=== PATIENT | male | born 1935 | race Caucasian/White ===

== ENCOUNTER 2016-12-07 08:08 | Emergency (ER) | payer MEDICAID ==
[~2016-12-07 08:08] MED LIST: Aspirin 81 MG Tab.Chew PO ONE
[2016-12-07] MEDS ORDERED: Sodium Chloride 0.9% 10 ML Syringe FLUSH PRN (08:20)
[2016-12-07] MEDS ORDERED: Aspirin 81 MG Tab.Chew PO ONE (08:21)
[2016-12-07] MEDS ORDERED: Sodium Chloride 0.9% 1,000 ML IV SCH (08:30)
[2016-12-07] MEDS ORDERED: Nitroglycerin 2% Oint 1 GM UD Packet TOP ONE (08:33)
--- NOTE | 2016-12-07 08:33 | EDM.PDOC ---
ED HPI GENERAL MEDICAL PROBLEM - General Chief Complaint: Chest Pain Stated Complaint: CHEST PAIN Time Seen by Provider: 12/07/16 08:08 Source of Information: Reports: Patient, Family History Limitations: Reports: No Limitations - History of Present Illness INITIAL COMMENTS - FREE TEXT/NARRATIVE: 81 y/.o.w.m without a prev history of cad, came to the ed with his due to SSCP at rest, radiating to his left shoulder, which started yesterday and got really bad last night. Pt took a 81 mg ASA last night. pt rated his CP as a 4/ 10. No N/V/D no diaphoresis, sob or any other acute medical issue at this time. 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 Chest Pain Score (Numeric/FACES): 4 - Related Data Allergies Allergy/AdvReac Type Severity Reaction Status Date / Time indomethacin [From Indocin] Allergy Nausea Verified 12/07/16 08:22 Home Meds: Home Meds Allopurinol [Zyloprim] 100 mg PO DAILY 12/07/16 [History] Glimepiride [Glimepiride] 2 mg PO DAILY 12/07/16 [History] Hydrochlorothiazide 25 mg PO DAILY 12/07/16 [History] Lisinopril 20 mg PO BID 12/07/16 [History] Simvastatin [Zocor] 40 mg PO BEDTIME 12/07/16 [History] ED ROS GENERAL - Review of Systems Review Of Systems: See Below Constitutional: Reports: No Symptoms HEENT: Reports: No Symptoms Respiratory: Reports: No Symptoms Cardiovascular: Reports: Chest Pain Endocrine: Reports: No Symptoms GI/Abdominal: Reports: No Symptoms : Reports: No Symptoms Musculoskeletal: Reports: No Symptoms Skin: Reports: No Symptoms Neurological: Reports: No Symptoms Psychiatric: Reports: No Symptoms Hematologic/Lymphatic: Reports: No Symptoms Immunologic: Reports: No Symptoms ED EXAM, GENERAL - Physical Exam Exam: See Below Exam Limited By: No Limitations General Appearance: Alert, WD/WN, Mild Distress Eye Exam: Bilateral Eye: Normal Inspection Ears: Normal External Exam Ear Exam: Bilateral Ear: Auricle Normal Nose: Normal Inspection, Normal Mucosa, No Blood Throat/Mouth: Normal Inspection, Normal Lips Head: Atraumatic, Normocephalic Neck: Normal Inspection, Supple, Non-Tender Respiratory/Chest: No Respiratory Distress, Lungs Clear, Normal Breath Sounds Cardiovascular: Normal Peripheral Pulses, Regular Rate, Rhythm, No Edema, No JVD Peripheral Pulses: 1+: Femoral (L), Femoral (R) GI/Abdominal: Normal Bowel Sounds, Soft, Non-Tender (Male) Exam: No Hernia Rectal (Males) Exam: Deferred Back Exam: Normal Inspection, Full Range of Motion Extremities: Normal Inspection Neurological: Alert, Oriented, CN II-XII Intact, Normal Cognition, Normal Gait Psychiatric: Normal Affect, Normal Mood Skin Exam: Warm, Dry, Intact, Normal Color, No Rash Lymphatic: No Adenopathy EKG INTERPRETATION EKG Date: 12/07/16 Time: 08:10 Rhythm: NSR Rate (Beats/Min): 79 [place]: LAD-Left [place] Deviation P-Wave: Present QRS: Normal ST-T: Normal QT: Normal Comparison: NA - No Prior EKG Course - Vital Signs Text/Narrative:: 81 y/.o.w.m without a prev history of cad, came to the ed with his due to SSCP at rest, radiating to his left shoulder, which started yesterday and got really bad last night. Pt took a 81 mg ASA last night. pt rated his CP as a 4/ 10. No N/V/D no diaphoresis, sob or any other acute medical issue at this time. PE: WDWN WM in no acute discomfort, c/o SSCP 4/10 Pt has H/O CRI and HTN, take lisinopril and HCTZ, H/O NIDDM. Lexitest was neg on 12/28/2016 Imaging: CXR: NAD Labs: Cr. 1.7 K 3.3 Na 128 Glc 285 GFR 39, HGB 11.6 Cl 94 WBC 5.6 D Dimer 1470 Troponin 0.01 ECG: HR 88, no acute ST/T wave changes, please see report above. Impression: CP, elevated D Dimer, CRI, HTN, Hyponatremia, hypokalemia, Tx: ASA, potassium, NTG paste, clonidine, Reexam:pain free after ASA, NTG and clonidin, BP was 123/87 on transfer Consultation: Dr. Treadwell, Hospitalist, [facility]: Accepted the pt for transfere/admission Plan: Transfer to [facility] for a VQ/CTA test to r/o a PE; Last Recorded V/S: Last Vital Signs Temp 36.9 C 12/07/16 08:54 Pulse 58 L 12/07/16 08:54 Resp 17 12/07/16 08:54 BP 148/75 H 12/07/16 09:34 Pulse Ox 98 12/07/16 08:54 - Orders/Labs/Meds Orders: Active Orders 24 hr Category Date Time Status Chest 1V Frontal [CR] Stat Exams 12/07/16 08:22 Taken Sodium Chloride 0.9% [Normal Saline] 1,000 ml Med 12/07/16 08:30 Active IV ASDIRECTED Sodium Chloride 0.9% [Saline Flush] Med 12/07/16 08:20 Active 10 ml FLUSH ASDIRECTED PRN Saline Lock Insert [OM.PC] Routine Oth 12/07/16 08:20 Ordered EKG 12 Lead [EK] Routine Ther 12/07/16 08:20 Ordered Medication Orders Sodium Chloride (Normal Saline) 1,000 mls @ 125 mls/hr IV ASDIRECTED SUDHIR Last Admin: 12/07/16 08:33 Dose: 125 mls/hr Sodium Chloride (Saline Flush) 10 ml FLUSH ASDIRECTED PRN PRN Reason: Keep Vein Open Last Admin: 12/07/16 08:24 Dose: 10 ml Labs: Laboratory Tests 12/07/16 12/07/16 12/07/16 Range/Units 08:15 08:15 08:15 WBC 5.6 (4.5-12.0) X10-3/uL RBC 3.49 L (4.30-5.75) x10(6)uL Hgb 11.9 (11.5-15.5) g/dL Hct 35.2 (30.0-51.3) % MCV 101.1 H (80-96) fL MCH 34.1 H (27.7-33.6) pg MCHC 33.8 (32.2-35.4) g/dL RDW 12.4 (11.5-15.5) % Plt Count 173 (125-369) X10(3)uL MPV 7.9 (7.4-10.4) fL Neut % (Auto) 71.5 (46-82) % Lymph % (Auto) 16.3 (13-37) % [place] % (Auto) 10.3 (4-12) % Eos % (Auto) 1 (1.0-5.0) % Baso % (Auto) 1 (0-2) % Neut # (Auto) 4.0 (1.6-8.3) # Lymph # (Auto) 0.9 (0.6-5.0) # [place] # (Auto) 0.6 (0.0-1.3) # Eos # (Auto) 0.1 (0.0-0.8) # Baso # (Auto) 0.0 (0.0-0.2) # PT 10.8 (8.7-11.1) INR 1.07 (0.89-1.13) D-Dimer, Quantitative (100-400) ng/mL Sodium 128 L (135-145) mmol/L Potassium 3.3 L (3.5-5.3) mmol/L Chloride 94 L (100-110) mmol/L Carbon Dioxide 26 (23-29) mmol/L BUN 23 (8-23) mg/dL Creatinine 1.7 H (0.6-1.3) mg/dL Est Cr Clr Drug Dosing 32.92 mL/min Estimated GFR (MDRD) 39 L (>60) BUN/Creatinine Ratio 13.5 (9-20) Glucose 282 H (80-116) mg/dL Calcium 9.4 (8.6-10.2) mg/dL Troponin I (0.02-0.06) NG/ML B-Natriuretic Peptide (0-100) pg/mL 12/07/16 12/07/16 12/07/16 Range/Units 08:15 08:15 08:15 WBC (4.5-12.0) X10-3/uL RBC (4.30-5.75) x10(6)uL Hgb (11.5-15.5) g/dL Hct (30.0-51.3) % MCV (80-96) fL MCH (27.7-33.6) pg MCHC (32.2-35.4) g/dL RDW (11.5-15.5) % Plt Count (125-369) X10(3)uL MPV (7.4-10.4) fL Neut % (Auto) (46-82) % Lymph % (Auto) (13-37) % [place] % (Auto) (4-12) % Eos % (Auto) (1.0-5.0) % Baso % (Auto) (0-2) % Neut # (Auto) (1.6-8.3) # Lymph # (Auto) (0.6-5.0) # [place] # (Auto) (0.0-1.3) # Eos # (Auto) (0.0-0.8) # Baso # (Auto) (0.0-0.2) # PT (8.7-11.1) INR (0.89-1.13) D-Dimer, Quantitative 1470 H (100-400) ng/mL Sodium (135-145) mmol/L Potassium (3.5-5.3) mmol/L Chloride (100-110) mmol/L Carbon Dioxide (23-29) mmol/L BUN (8-23) mg/dL Creatinine (0.6-1.3) mg/dL Est Cr Clr Drug Dosing mL/min Estimated GFR (MDRD) (>60) BUN/Creatinine Ratio (9-20) Glucose (80-116) mg/dL Calcium (8.6-10.2) mg/dL Troponin I < 0.01 L (0.02-0.06) NG/ML B-Natriuretic Peptide 123 H (0-100) pg/mL Meds: Medications Generic Name Dose Route Start Last Admin Trade Name Freq PRN Reason Stop Dose Admin Sodium Chloride 1,000 mls @ 125 mls/hr 12/07/16 08:30 12/07/16 08:33 Normal Saline IV 125 mls/hr ASDIRECTED SUDHIR Administration Sodium Chloride 10 ml 12/07/16 08:20 12/07/16 08:24 Saline Flush FLUSH 10 ml ASDIRECTED PRN Administration Keep Vein Open Discontinued Medications Generic Name Dose Route Start Last Admin Trade Name Freq PRN Reason Stop Dose Admin Aspirin 324 mg 12/07/16 08:05 12/07/16 08:10 Aspirin PO 12/07/16 08:06 324 mg ONETIME ONE Administration Clonidine HCl 0.1 mg 12/07/16 09:24 12/07/16 09:34 Catapres PO 12/07/16 09:25 0.1 mg ONETIME ONE Administration Nitroglycerin 1 gm 12/07/16 08:33 12/07/16 08:39 Nitro-Bid 2% TOP 12/07/16 08:34 1 gm ONETIME ONE Administration Potassium Chloride 40 meq 12/07/16 08:47 12/07/16 08:57 Klor-Con M20 PO 12/07/16 08:48 40 meq ONETIME ONE Administration Departure - Departure Time of Disposition: 10:14 Disposition: DC/Tfer to [facility] Reason for Transfer *Q: Other (no VQ scan at [facility]) Condition: Fair Clinical Impression: Chest pain, Elevated d-dimer, Renal insufficiency, Diabetes 1.5, managed as type 2 Referrals: Luli Lester PA [Primary Care Provider] - Forms: ED Department Discharge - My Orders Last 24 Hours: My Active Orders 12/07/16 08:20 Sodium Chloride 0.9% [Saline Flush] 10 ml FLUSH ASDIRECTED PRN Saline Lock Insert [OM.PC] Routine EKG 12 Lead [EK] Routine 12/07/16 08:22 Chest 1V Frontal [CR] Stat 12/07/16 08:30 Sodium Chloride 0.9% [Normal Saline] 1,000 ml IV ASDIRECTED - Assessment/Plan Last 24 Hours: My Active Orders 12/07/16 08:20 Sodium Chloride 0.9% [Saline Flush] 10 ml FLUSH ASDIRECTED PRN Saline Lock Insert [OM.PC] Routine EKG 12 Lead [EK] Routine 12/07/16 08:22 Chest 1V Frontal [CR] Stat 12/07/16 08:30 Sodium Chloride 0.9% [Normal Saline] 1,000 ml IV ASDIRECTED
[2016-12-07] MEDS ORDERED: Potassium Chloride 20 MEQ Tab.ER PO ONE (08:47)
[2016-12-07] MEDS ORDERED: cloNIDine 0.1 MG Tab PO ONE (09:24)
[2016-12-07 09:34] VITALS: BP 148/75
--- NOTE | 2016-12-09 12:08 | CR ---
INDICATION: Chest pain. CHEST: An AP upright view of the chest was obtained portable 12/07/2016 and revealed the heart to be normal in size and shape. The aorta is tortuous with calcification in the arch. Overlying EKG leads are noted. An active infiltrate or effusion was not seen. IMPRESSION: No acute process. MTDD
== END 2016-12-07 11:13 | disposition critical access hospital (66) ==
LOC: FB.ED 08:08
DX: R07.2 Precordial pain (principal); R79.1 Abnormal coagulation profile; I12.9 Hypertensive chronic kidney disease with stage 1 through stage 4 chronic kidney disease, or unspecified chronic kidney disease; E11.22 Type 2 diabetes mellitus with diabetic chronic kidney disease; N18.9 Chronic kidney disease, unspecified; E87.1 Hypo-osmolality and hyponatremia; E87.6 Hypokalemia
CPT/HCPCS: 36415; 71010; 80048; 83880; 84484; 85025; 85379; 85610; 93005; 96360; 96361; 99285; A9270; J7040; J7050

== ENCOUNTER 2017-03-09 10:43 | Emergency (ER) | payer MEDICAID, MEDICARE ==
[2017-03-09] MEDS ORDERED: Ondansetron 8 MG Tab.DIS PO ONE (11:13)
[2017-03-09] MEDS ORDERED: Alum Hydroxide/Mag Hydroxide 15 ML, Lidocaine 2% 15 ML PO STA ×2 (11:13)
--- NOTE | 2017-03-09 11:15 | EDM.PDOC ---
ED HPI GENERAL MEDICAL PROBLEM - General Stated Complaint: STOMACH, HIGH BP Time Seen by Provider: 03/09/17 10:43 Source of Information: Reports: Patient, Family History Limitations: Reports: No Limitations - History of Present Illness INITIAL COMMENTS - FREE TEXT/NARRATIVE: 81 y.o.w.m came to the ed because of pein at his mid upper abdomen. Pt was seen by his PMD last week for same when protonix was prescribed. Pt stated the meds did not help. He was seen initially at the clinic and sent to the ED and sent to the ed because his BP was elevated. No N/V/D or dizziness. His SBP was 165. 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 Denies spice food, ETOH or drugs. No other acute medical issues. Onset: Unknown/Unsure Onset Date: 03/08/17 Onset Time: 08:00 Duration: Week(s):, Intermittent Location: Reports: Abdomen Quality: Reports: Burning, Dull Severity: Mild Improves with: Reports: Eating Worsens with: Reports: Other (not eating) Context: Reports: Other (h/o of gastritis) Associated Symptoms: Reports: No Other Symptoms Treatments POLYMERIZATION ENGINEER: Reports: Other (see below) (protonix) Middle Abdomen Pain Score (Numeric/FACES): 5 - Related Data Allergies Allergy/AdvReac Type Severity Reaction Status Date / Time indomethacin [From Indocin] Allergy Nausea Verified 03/09/17 11:04 Home Meds: Home Meds Allopurinol [Zyloprim] 100 mg PO DAILY 12/07/16 [History] Glimepiride [Glimepiride] 2 mg PO DAILY 12/07/16 [History] Lisinopril 20 mg PO BID 12/07/16 [History] Simvastatin [Zocor] 40 mg PO BEDTIME 12/07/16 [History] Metoprolol Tartrate 12.5 mg PO BID 03/09/17 [History] Pantoprazole Sodium [Protonix] 40 mg PO DAILY 03/09/17 [History] Past Medical History HEENT History: Reports: Cataract, Epistaxis, Impaired Vision Cardiovascular History: Reports: Afib, Hypertension Genitourinary History: Reports: Other (See Below) Other Genitourinary History: 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 Musculoskeletal History: Reports: Arthritis Endocrine/Metabolic History: Reports: Diabetes, Type II Oncologic (Cancer) History: Reports: Lymphoma - Infectious Disease History Infectious Disease History: Reports: Chicken Pox, Measles, Mumps - Past Surgical History HEENT Surgical History: Reports: Cataract Surgery GI Surgical History: Reports: Colonoscopy, Hernia, Abdominal Social & Family History - Tobacco Use Smoking Status *Q: Never Smoker - Caffeine Use Caffeine Use: Reports: Tea - Recreational Drug Use Recreational Drug Use: No ED ROS GENERAL - Review of Systems Review Of Systems: See Below Constitutional: Reports: No Symptoms HEENT: Reports: No Symptoms Respiratory: Reports: No Symptoms Cardiovascular: Reports: No Symptoms Endocrine: Reports: No Symptoms GI/Abdominal: Reports: Abdominal Pain (epigastric) : Reports: No Symptoms Musculoskeletal: Reports: No Symptoms Skin: Reports: No Symptoms Neurological: Reports: No Symptoms Psychiatric: Reports: No Symptoms Hematologic/Lymphatic: Reports: No Symptoms Immunologic: Reports: No Symptoms ED EXAM, GI/ABD - Physical Exam Exam: See Below Exam Limited By: No Limitations General Appearance: Alert, WD/WN, Mild Distress Eyes: Bilateral: Normal Appearance Ears: Normal External Exam Nose: Normal Inspection Throat/Mouth: Normal Inspection, Normal Lips Head: Atraumatic, Normocephalic Neck: Normal Inspection, Supple, Non-Tender, Full Range of Motion Respiratory/Chest: No Respiratory Distress, Lungs Clear, Normal Breath Sounds Cardiovascular: Normal Peripheral Pulses, Regular Rate, Rhythm, No Edema GI/Abdominal Exam: Normal Bowel Sounds, No Organomegaly, Tender (epigastric) (Male) Exam: Deferred Rectal (Males) Exam: Deferred Back Exam: Normal Inspection, Full Range of Motion Extremities: Normal Inspection, Normal Range of Motion, Non-Tender, No Pedal Edema Neurological: Alert, Oriented, CN II-XII Intact, Normal Cognition, Normal Gait, No Motor/Sensory Deficits Psychiatric: Normal Affect, Normal Mood Skin Exam: Warm, Dry, Intact, Normal Color, No Rash Lymphatic: No Adenopathy Course - Vital Signs Text/Narrative:: 81 y.o.w.m came to the ed because of pein at his mid upper abdomen. Pt was seen by his PMD last week for same when protonix was prescribed. Pt stated the meds did not help. He was seen initially at the clinic and sent to the ED and sent to the ed because his BP was elevated. No N/V/D or dizziness. His SBP was 165. 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 Denies spice food, ETOH or drugs. No other acute medical issues. PE: WNWD WM c/o mid upper abd. pain BP 165/98 Impression: HTN, gastritis/duodenitis Tx: Zofran, GI cocktail, Clonidin Reexam: imprpved. abd. pain subsided 100% His BP was 135/85 on D/C to home with his SO Plan: D/C with instructions Last Recorded V/S: Last Vital Signs Temp 36.7 C 03/09/17 11:05 Pulse 65 03/09/17 11:05 Resp 18 03/09/17 13:36 BP 138/74 03/09/17 14:48 Pulse Ox 99 03/09/17 11:05 - Orders/Labs/Meds Labs: Laboratory Tests 03/09/17 Range/Units 11:50 Urine Color Yellow (YELLOW) Urine Appearance Clear (CLEAR) Urine pH 6.5 (5.0-6.5) Ur Specific [place] 1.010 (1.010-1.025) Urine Protein 30 H (NEGATIVE) mg/dL Urine Glucose (UA) 250 H (NEGATIVE) mg/dL Urine Ketones Negative (NEGATIVE) mg/dL Urine Occult Blood Negative (NEGATIVE) Urine Nitrite Negative (NEGATIVE) Urine Bilirubin Negative (NEGATIVE) Urine Urobilinogen Normal (NEGATIVE) mg/dL Ur Leukocyte Esterase Negative (NEGATIVE) Urine RBC 0-5 (0) Urine WBC 0-5 (0) Ur Squamous Epith Cells Rare (NS,R,O) Urine Bacteria Rare H (NS) Meds: Medications Discontinued Medications Generic Name Dose Route Start Last Admin Trade Name Freq PRN Reason Stop Dose Admin Clonidine HCl 0.1 mg 03/09/17 13:37 03/09/17 13:41 Catapres PO 03/09/17 13:38 0.1 mg ONETIME ONE Administration Al Hydroxide/Mg Hydroxide 15 0 ml 03/09/17 11:13 03/09/17 11:56 ml/ Lidocaine HCl 15 ml PO 03/09/17 11:14 30 ml ONETIME STA Administration Ondansetron HCl 8 mg 03/09/17 11:13 03/09/17 11:56 Zofran Odt PO 03/09/17 11:14 8 mg ONETIME ONE Administration Departure - Departure Time of Disposition: 14:58 Disposition: Home, Self-Care 01 Condition: Good Clinical Impression: Gastritis, Hypertension - Discharge Information Referrals: Luli Lester PA [Primary Care Provider] - Forms: ED Department Discharge Additional Instructions: Please take your Protonix every morning and 30ml of Maalox every evening, 3 hours after your last meal of the day. Take Maalox every evening for the next 5 days. Please f/u with your PCP/GI specialist, come back if your symptoms get worse acutely. Check your blood pressure every day at the same time, record blood pressures and if top number greater than 140, please see your doctor SANDRINE or be seen at walk-in clinic.
[2017-03-09] MEDS ORDERED: cloNIDine 0.1 MG Tab PO ONE (13:37)
[2017-03-09 15:25] VITALS: BP 138/74
== END 2017-03-09 15:11 | disposition home or self-care (01) ==
LOC: FB.ED 10:43
DX: K29.70 Gastritis, unspecified, without bleeding (principal); K29.80 Duodenitis without bleeding; I10 Essential (primary) hypertension; E11.9 Type 2 diabetes mellitus without complications; N27.0 Small kidney, unilateral; Z79.84 Long term (current) use of oral hypoglycemic drugs; Z79.899 Other long term (current) drug therapy; Z88.8 Allergy status to other drugs, medicaments and biological substances
CPT/HCPCS: 81001; 99283; A9270

== ENCOUNTER 2017-03-24 06:48 | Day surgery (SDC) | payer MEDICARE ==
[2017-03-24] MEDS ORDERED: Sodium Chloride 0.9% 10 ML Syringe FLUSH PRN (07:00)
[2017-03-24] MEDS ORDERED: Lactated Ringers 1,000 ML IV SCH (07:00)
[2017-03-24] MEDS ORDERED: Propofol 200 MG/20 ML SDV IV ONE (08:00)
[2017-03-24] MEDS ORDERED: Lidocaine 2% 100 MG/5 ML Syringe IVPUSH ONE (08:00)
[2017-03-24] MEDS ORDERED: Midazolam 1 MG/ML 2 ML SDV IV ONE (08:00)
[2017-03-24] MEDS ORDERED: Labetalol 100 MG/20 ML MDV IV ONE (08:00)
--- NOTE | 2017-03-24 08:17 | PCM.OPNOTE ---
- General Post-Op/Procedure Note Date of Surgery/Procedure: 03/24/17 Operative Procedure(s): egd with bx Findings: gastritis fundic gland polyps esophagitis Pre Op Diagnosis: epigastric pain Post-Op Diagnosis: gastritis. fundic gland polyps. esophagitis Anesthesia Technique: MAC Primary Surgeon: Lobo Borja Anesthesia Provider: Elli Siddiqui Pathology: stomach and distal esophagus Complications: None Condition: Good Free Text/Narrative:: see dictation
[2017-03-24 09:26] VITALS: BP 174/84
--- NOTE | 2017-03-25 11:27 | OR ---
DATE OF OPERATION: 03/24/2017 SURGEON: Lobo Borja MD PROCEDURES PERFORMED: Esophagogastroduodenoscopy with cold forceps biopsy. PREOPERATIVE DIAGNOSIS: Epigastric pain. 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 INDICATIONS FOR PROCEDURE: This is an 81-year-old white male, who was referred with a history of epigastric discomfort. He was offered and accepted an EGD. DESCRIPTION OF OPERATION: After an excellent IV sedation was administered, the bite block was inserted. The flexible endoscope was passed without difficulty down the patient's esophagus into the stomach. The stomach was insufflated. The scope was passed through the pylorus to the second portion of duodenum and slowly withdrawn. The following findings were noted. Duodenum was unremarkable. The stomach demonstrated some mild diffuse gastritis and fundic gland hyperplasia. Biopsies were taken of the gastric mucosa as well as the fundic gland polyps and submitted in one container. Esophagus demonstrated some mild esophagitis, and biopsies were taken of that. This esophagitis involved the distal esophagus. Remainder of the esophageal exam was unremarkable. Stomach was deflated. Scope was removed. CONDITION: The patient tolerated the procedure well, and was taken to recovery room in good condition. /[id number] /[id number]
== END 2017-03-24 09:51 | disposition home or self-care (01) ==
LOC: FB.SDS 06:48
PROVIDERS: ATTEND Surgery
DX: K31.7 Polyp of stomach and duodenum (principal); K29.50 Unspecified chronic gastritis without bleeding; E78.5 Hyperlipidemia, unspecified; E11.22 Type 2 diabetes mellitus with diabetic chronic kidney disease; I12.9 Hypertensive chronic kidney disease with stage 1 through stage 4 chronic kidney disease, or unspecified chronic kidney disease; N18.9 Chronic kidney disease, unspecified; Z98.890 Other specified postprocedural states; Z88.8 Allergy status to other drugs, medicaments and biological substances; Z79.82 Long term (current) use of aspirin; Z79.899 Other long term (current) drug therapy
CPT/HCPCS: 00740; 43239; 82962; 88305; 88342; J2250; J2704; J7120

== ENCOUNTER 2017-04-03 04:49 | Emergency (ER) | payer MEDICARE, OTHER ==
[2017-04-03] MEDS ORDERED: Meclizine 25 MG Tab PO ONE (05:43)
--- NOTE | 2017-04-03 05:46 | EDM.PDOC ---
ED HPI GENERAL MEDICAL PROBLEM - General Stated Complaint: FALL Time Seen by Provider: 04/03/17 04:49 Source of Information: Reports: Patient, Family History Limitations: Reports: No Limitations - History of Present Illness INITIAL COMMENTS - FREE TEXT/NARRATIVE: 81 y.o.w.f with h/o HTN came to the ed with a friend due to dizziness while get up from his bed at 3 am. Pt had minor discomfort at his left chest wall but fell to the right side. Pt got up by himself immediately. BP was 188/78 pulse was 56. Pt is on metoprolol. He has h/o Vertigo. ECG showed NSR with with arrhythmia. No N/V/D or any other acute medical issues. Onset: Today Onset Date: 04/03/17 Onset Time: 03:00 Duration: Hour(s): Location: Reports: Generalized Severity: Mild Improves with: Reports: Rest Worsens with: Reports: Movement Context: Reports: Activity (getting up from bed fast) - Related Data Allergies Allergy/AdvReac Type Severity Reaction Status Date / Time indomethacin [From Indocin] AdvReac Mild Nausea Verified 04/03/17 05:13 Home Meds: Home Meds Allopurinol [Zyloprim] 100 mg PO DAILY 12/07/16 [History] Glimepiride 2 mg PO DAILY 12/07/16 [History] Lisinopril 20 mg PO BID 12/07/16 [History] Simvastatin [Zocor] 40 mg PO BEDTIME 12/07/16 [History] Pantoprazole Sodium [Protonix] 40 mg PO DAILY 03/09/17 [History] Acetaminophen [Tylenol Extra Strength] 1,000 mg PO Q6HR PRN 03/21/17 [History] Aspirin [Halfprin] 81 mg PO DAILY 03/21/17 [History] Carboxymethylcellulos/Glycerin [Refresh Optive] 1 drop EYEBOTH ASDIRECTED PRN [History] Cholecalciferol (Vitamin D3) [Vitamin D3] 1,000 unit PO DAILY 03/21/17 [History] Famotidine [Pepcid] 20 mg PO DAILY 03/21/17 [History] Fluticasone Propionate [Flonase] 1 spray NS ASDIRECTED PRN 03/21/17 [History] Multivitamin with Minerals [Multiple Vitamin] 1 tab PO DAILY 03/21/17 [History] Metoprolol Tartrate [Metoprolol Tartrate] 12.5 mg BID 04/03/17 [History] Sucralfate [Sucralfate] 1 gm QID 04/03/17 [History] Past Medical History HEENT History: Reports: Cataract, Epistaxis, Hard of Hearing, Impaired Vision Cardiovascular History: Reports: Afib, Angina, Hypertension Respiratory History: Reports: SOB Genitourinary History: Reports: Other (See Below) Other Genitourinary History: 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 Musculoskeletal History: Reports: Arthritis Neurological History: Reports: None Psychiatric History: Reports: None Endocrine/Metabolic History: Reports: Diabetes, Type II Hematologic History: Reports: Blood Transfusion(s) Immunologic History: Reports: None Oncologic (Cancer) History: Reports: Lymphoma, Prostate Dermatologic History: Reports: None - Infectious Disease History Infectious Disease History: Reports: Chicken Pox, Measles, Mumps - Past Surgical History Head Surgeries/Procedures: Reports: None HEENT Surgical History: Reports: Cataract Surgery Cardiovascular Surgical History: Reports: None Respiratory Surgical History: Reports: None GI Surgical History: Reports: Colonoscopy, Hernia, Abdominal Male Surgical History: Reports: None Endocrine Surgical History: Reports: None Neurological Surgical History: Reports: None Musculoskeletal Surgical History: Reports: None Oncologic Surgical History: Reports: Other (See Below) Other Oncologic Surgeries/Procedures: radiated seeds implanted into prostate Dermatological Surgical History: Reports: None Social & Family History - Family History Family Medical History: Noncontributory - Tobacco Use Smoking Status *Q: Never Smoker - Caffeine Use Caffeine Use: Reports: None - Recreational Drug Use Recreational Drug Use: No ED ROS GENERAL - Review of Systems Review Of Systems: See Below Constitutional: Reports: Weakness HEENT: Reports: Vertigo Respiratory: Reports: No Symptoms Cardiovascular: Reports: No Symptoms Endocrine: Reports: No Symptoms GI/Abdominal: Reports: No Symptoms : Reports: Frequency Musculoskeletal: Reports: No Symptoms Skin: Reports: No Symptoms Neurological: Reports: Dizziness Psychiatric: Reports: No Symptoms Hematologic/Lymphatic: Reports: No Symptoms Immunologic: Reports: No Symptoms ED EXAM, DIZZINESS - Physical Exam Exam: See Below Exam Limited By: No Limitations General Appearance: Alert, WD/WN, No Apparent Distress Eye Exam: Bilateral Eye: Nystagmus Nystagmus: worsens with head to L, reproducible Ears: Normal External Exam, Normal Canal, Hearing Grossly Normal Nose: Normal Inspection, Normal Mucosa, No Blood Throat/Mouth: Normal Inspection, Normal Lips Head Exam: Atraumatic, Normocephalic Neck: Normal Inspection, Supple, Non-Tender, Full Range of Motion Respiratory/Chest: No Respiratory Distress, Lungs Clear, Normal Breath Sounds, No Accessory Muscle Use, Chest Non-Tender Cardiovascular: Normal Peripheral Pulses, Regular Rate, Rhythm, No Edema, No Murmur, No Rub GI/Abdominal: Normal Bowel Sounds, Soft, Tender (suprapubic tenderness) (Male) Exam: Deferred Rectal (Males) Exam: Deferred Neurological: Alert, Normal Mood/Affect, Normal Dorsiflexion, CN II-XII Intact, Normal Plantar Flexion, Normal Gait Back Exam: Normal Inspection, Full Range of Motion Extremities: Normal Inspection, Normal Range of Motion, Non-Tender, No Pedal Edema Psychiatric: Normal Affect, Normal Mood Skin Exam: Warm, Dry, Intact, Normal Color, No Rash EKG INTERPRETATION EKG Date: 04/03/17 Time: 05:05 Rhythm: NSR Rate (Beats/Min): 63 [place]: LAD-Left [place] Deviation P-Wave: Present QRS: Normal ST-T: Normal QT: Normal Comparison: NA - No Prior EKG Course - Vital Signs Text/Narrative:: 81 y.o.w.f with h/o HTN came to the ed with a friend due to dizziness while get up from his bed at 3 am. Pt had minor discomfort at his left chest wall but fell to the right side. Pt got up by himself immediately. BP was 188/78 pulse was 56. Pt is on metoprolol. He has h/o Vertigo. ECG showed NSR with with arrhythmia. No N/V/D or any other acute medical issues. PE: Vertigo, HTN Labs: WBC 6.1 HGB 11.6 HKT 34.4 Na 133 K 36 GFR 47 Troponin 0.02 Glc 157 CK 127 Impression: Vertigo, HTN urgency Tx: Clonidine, Antivert Reexam: BP 156/81, Pt denied pain, was ambulating fine before D/C Plan: D/C with instructions Last Recorded V/S: Last Vital Signs Temp 36.2 C 04/03/17 04:49 Pulse 48 L 04/03/17 04:49 Resp 18 04/03/17 07:15 BP 180/80 H 04/03/17 07:15 Pulse Ox 97 04/03/17 07:15 - Orders/Labs/Meds Orders: Active Orders 24 hr Category Date Time Status EKG Documentation Completion [RC] ASDIRECTED Care 04/03/17 07:07 Active EKG 12 Lead [EK] Routine Ther 04/03/17 07:06 Ordered Labs: Laboratory Tests 04/03/17 04/03/17 04/03/17 Range/Units 05:12 05:12 05:12 WBC 6.1 (4.5-12.0) X10-3/uL RBC 3.42 L (4.30-5.75) x10(6)uL Hgb 11.8 (11.5-15.5) g/dL Hct 34.4 (30.0-51.3) % MCV 100.7 H (80-96) fL MCH 34.6 H (27.7-33.6) pg MCHC 34.3 (32.2-35.4) g/dL RDW 12.5 (11.5-15.5) % Plt Count 212 (125-369) X10(3)uL MPV 9.5 (7.4-10.4) fL Add Manual Diff Yes Neutrophils % (Manual) 72 (46-82) % Lymphocytes % (Manual) 20 (13-37) % Monocytes % (Manual) 4 (4-12) % Eosinophils % (Manual) 4 (0-5) % Toxic Granulation Moderate H (NOT SEEN) Macrocytosis Few Sodium 132 L (135-145) mmol/L Potassium 3.6 (3.5-5.3) mmol/L Chloride 102 D (100-110) mmol/L Carbon Dioxide 23 (23-29) mmol/L BUN 19 (8-23) mg/dL Creatinine 1.6 H (0.6-1.3) mg/dL Est Cr Clr Drug Dosing 32.71 mL/min Estimated GFR (MDRD) 41 L (>60) BUN/Creatinine Ratio 11.9 (9-20) Glucose 157 H D (80-116) mg/dL Calcium 9.3 (8.6-10.2) mg/dL Creatine Kinase (60-160) IU/L Troponin I 0.02 (0.02-0.06) NG/ML Urine Color (YELLOW) Urine Appearance (CLEAR) Urine pH (5.0-6.5) Ur Specific [place] (1.010-1.025) Urine Protein (NEGATIVE) mg/dL Urine Glucose (UA) (NEGATIVE) mg/dL Urine Ketones (NEGATIVE) mg/dL Urine Occult Blood (NEGATIVE) Urine Nitrite (NEGATIVE) Urine Bilirubin (NEGATIVE) Urine Urobilinogen (NEGATIVE) mg/dL Ur Leukocyte Esterase (NEGATIVE) Urine RBC (0) Urine WBC (0) Ur Squamous Epith Cells (NS,R,O) Urine Bacteria (NS) 04/03/17 04/03/17 Range/Units 05:12 05:50 WBC (4.5-12.0) X10-3/uL RBC (4.30-5.75) x10(6)uL Hgb (11.5-15.5) g/dL Hct (30.0-51.3) % MCV (80-96) fL MCH (27.7-33.6) pg MCHC (32.2-35.4) g/dL RDW (11.5-15.5) % Plt Count (125-369) X10(3)uL MPV (7.4-10.4) fL Add Manual Diff Neutrophils % (Manual) (46-82) % Lymphocytes % (Manual) (13-37) % Monocytes % (Manual) (4-12) % Eosinophils % (Manual) (0-5) % Toxic Granulation (NOT SEEN) Macrocytosis Sodium (135-145) mmol/L Potassium (3.5-5.3) mmol/L Chloride (100-110) mmol/L Carbon Dioxide (23-29) mmol/L BUN (8-23) mg/dL Creatinine (0.6-1.3) mg/dL Est Cr Clr Drug Dosing mL/min Estimated GFR (MDRD) (>60) BUN/Creatinine Ratio (9-20) Glucose (80-116) mg/dL Calcium (8.6-10.2) mg/dL Creatine Kinase 127 (60-160) IU/L Troponin I (0.02-0.06) NG/ML Urine Color Yellow (YELLOW) Urine Appearance Clear (CLEAR) Urine pH 7.0 H (5.0-6.5) Ur Specific [place] 1.010 (1.010-1.025) Urine Protein Trace (NEGATIVE) mg/dL Urine Glucose (UA) Normal (NEGATIVE) mg/dL Urine Ketones Negative (NEGATIVE) mg/dL Urine Occult Blood Negative (NEGATIVE) Urine Nitrite Negative (NEGATIVE) Urine Bilirubin Negative (NEGATIVE) Urine Urobilinogen Normal (NEGATIVE) mg/dL Ur Leukocyte Esterase Negative (NEGATIVE) Urine RBC 0-5 (0) Urine WBC 0-5 (0) Ur Squamous Epith Cells Rare (NS,R,O) Urine Bacteria Rare H (NS) Meds: Medications Discontinued Medications Generic Name Dose Route Start Last Admin Trade Name [place] PRN Reason Stop Dose Admin Clonidine HCl 0.1 mg 04/03/17 05:50 04/03/17 06:02 Catapres PO 04/03/17 05:51 0.1 mg ONETIME ONE Administration Meclizine HCl 50 mg 04/03/17 05:43 04/03/17 06:02 Antivert PO 04/03/17 05:44 50 mg ONETIME ONE Administration Departure - Departure Time of Disposition: 06:59 Disposition: Home, Self-Care 01 Condition: Good Clinical Impression: Hypertensive urgency, Vertigo - Discharge Information Instructions: Vertigo, [id number], Hypertension, [id number] Referrals: Luli Lester PA [Primary Care Provider] - Forms: ED Department Discharge Additional Instructions: Please follow up with your PMD for blood pressure medication adjustment. increase water intake. please come back if your symptoms get worse acutely. - My Orders Last 24 Hours: My Active Orders 04/03/17 07:06 EKG 12 Lead [EK] Routine 04/03/17 07:07 EKG Documentation Completion [RC] ASDIRECTED - Assessment/Plan Last 24 Hours: My Active Orders 04/03/17 07:06 EKG 12 Lead [EK] Routine 04/03/17 07:07 EKG Documentation Completion [RC] ASDIRECTED
[2017-04-03] MEDS ORDERED: cloNIDine 0.1 MG Tab PO ONE (05:50)
[2017-04-03 07:42] VITALS: BP 180/80
== END 2017-04-03 07:29 | disposition home or self-care (01) ==
LOC: FB.ED 04:49
DX: I16.0 Hypertensive urgency (principal); E11.9 Type 2 diabetes mellitus without complications; I10 Essential (primary) hypertension; I48.91 Unspecified atrial fibrillation; N27.0 Small kidney, unilateral; Z79.82 Long term (current) use of aspirin; Z79.899 Other long term (current) drug therapy; Z88.8 Allergy status to other drugs, medicaments and biological substances
CPT/HCPCS: 36415; 80048; 81001; 82550; 84484; 85025; 93005; 99284; A9270; 93010; 99285

== ENCOUNTER 2017-04-05 21:16 | Inpatient (IN) | payer MEDICARE ==
--- NOTE | 2017-04-05 21:32 | EDM.PDOC ---
ED HPI GENERAL MEDICAL PROBLEM - General Chief Complaint: General Stated Complaint: CHEST PAIN Time Seen by Provider: 04/05/17 21:16 Source of Information: Reports: Patient History Limitations: Reports: No Limitations - History of Present Illness INITIAL COMMENTS - FREE TEXT/NARRATIVE: 81 y.o.w.m with h/o HTN and Abd pain came to the ed due to dizziness and abd. pain. His SBP was 221 on arrival. Pt took his BP pills [employer]. Pt was not able to walk due to dizziness and oc numbness in his right leg. Pt denied h/o CVA. Pt's abd. pain is not new. He had an abd. CT on 02/11/2017 which showed a renal and pancreatic cyst and a sigmoid diverticulosis. The abd. pain is not getting worse , it comes and goes. Pt denied CP, N/V/D. No F/C. Pt c/o worst headache as well Pt lives with his . BP 233/104 pulse 62 Temp 97.7 Onset: Today, Gradual Onset Date: 04/05/17 Onset Time: 11:00 Duration: Hour(s):, Getting Worse Location: Reports: Abdomen Quality: Reports: Ache, Burning, Dull Severity: Moderate Improves with: Reports: Rest Worsens with: Reports: Movement Context: Reports: Other (nonspecific abd. pain) Left Middle Abdominal Pain Score (Numeric/FACES): 5 Left Middle Mid-Posterior Chest Pain Score (Numeric/FACES): 2 Pain Pain Score (Numeric/FACES): 0 - Related Data Allergies Allergy/AdvReac Type Severity Reaction Status Date / Time indomethacin [From Indocin] AdvReac Mild Nausea Verified 04/08/17 04:49 Home Meds: Home Meds Allopurinol [Zyloprim] 100 mg PO DAILY 12/07/16 [History] Glimepiride 2 mg PO DAILY 12/07/16 [History] Simvastatin [Zocor] 40 mg PO BEDTIME 12/07/16 [History] Pantoprazole Sodium [Protonix] 40 mg PO DAILY 03/09/17 [History] Acetaminophen [Tylenol Extra Strength] 1,000 mg PO Q6HR PRN 03/21/17 [History] Carboxymethylcellulos/Glycerin [Refresh Optive] 1 drop EYEBOTH ASDIRECTED PRN [History] Cholecalciferol (Vitamin D3) [Vitamin D3] 1,000 unit PO DAILY 03/21/17 [History] Fluticasone Propionate [Flonase] 1 spray NS DAILY PRN 03/21/17 [History] Multivitamin with Minerals [Multiple Vitamin] 1 tab PO DAILY 03/21/17 [History] Sucralfate 1 gm PO QID 04/03/17 [History] Lisinopril 40 mg PO DAILY 3 Days #30 tablet MDD for 3 days 04/07/17 [Rx] amLODIPine [Norvasc] 5 mg PO DAILY #30 tablet 04/07/17 [Rx] Past Medical History HEENT History: Reports: Cataract, Epistaxis, Hard of Hearing, Impaired Vision Cardiovascular History: Reports: Afib, Angina, Hypertension Respiratory History: Reports: SOB Gastrointestinal History: Reports: GERD Genitourinary History: Reports: Other (See Below) Other Genitourinary History: 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 Musculoskeletal History: Reports: Arthritis Neurological History: Reports: None Psychiatric History: Reports: None Endocrine/Metabolic History: Reports: Diabetes, Type II Hematologic History: Reports: Blood Transfusion(s) Immunologic History: Reports: None Oncologic (Cancer) History: Reports: Lymphoma, Prostate Other Oncologic History: skin CA nose Dermatologic History: Reports: None Other Dermatologic History: skin CA - Infectious Disease History Infectious Disease History: Reports: Chicken Pox, Measles, Mumps - Past Surgical History Head Surgeries/Procedures: Reports: None HEENT Surgical History: Reports: Cataract Surgery Cardiovascular Surgical History: Reports: None Respiratory Surgical History: Reports: None GI Surgical History: Reports: Colonoscopy, Hernia, Abdominal Male Surgical History: Reports: None Endocrine Surgical History: Reports: None Neurological Surgical History: Reports: None Musculoskeletal Surgical History: Reports: None Oncologic Surgical History: Reports: Other (See Below) Other Oncologic Surgeries/Procedures: radiated seeds implanted into prostate Dermatological Surgical History: Reports: None Social & Family History - Family History Family Medical History: Noncontributory - Tobacco Use Smoking Status *Q: Never Smoker - Caffeine Use Caffeine Use: Reports: None - Recreational Drug Use Recreational Drug Use: No ED ROS GENERAL - Review of Systems Review Of Systems: See Below Constitutional: Reports: No Symptoms HEENT: Reports: No Symptoms Respiratory: Reports: No Symptoms Cardiovascular: Reports: No Symptoms Endocrine: Reports: No Symptoms GI/Abdominal: Reports: Abdominal Pain : Reports: No Symptoms Musculoskeletal: Reports: No Symptoms Skin: Reports: No Symptoms Neurological: Reports: No Symptoms Psychiatric: Reports: No Symptoms Hematologic/Lymphatic: Reports: No Symptoms Immunologic: Reports: No Symptoms ED EXAM, GENERAL - Physical Exam Exam: See Below Exam Limited By: No Limitations General Appearance: Alert, WD/WN, Mild Distress Eye Exam: Bilateral Eye: Normal Inspection Ears: Normal External Exam Ear Exam: Bilateral Ear: Auricle Normal Nose: Normal Inspection, Normal Mucosa Throat/Mouth: Normal Inspection, Normal Lips Head: Atraumatic, Normocephalic Neck: Normal Inspection, Supple, Non-Tender, Full Range of Motion Respiratory/Chest: No Respiratory Distress, Lungs Clear Cardiovascular: Normal Peripheral Pulses, Regular Rate, Rhythm, No Edema GI/Abdominal: Normal Bowel Sounds, Tender (gen tendeness) (Male) Exam: Deferred Rectal (Males) Exam: Deferred Back Exam: Normal Inspection, Full Range of Motion Extremities: Normal Inspection, Normal Range of Motion, Non-Tender Neurological: Alert, Oriented, CN II-XII Intact, Sensory/Motor Deficit (right lower extremity paresthesia) Psychiatric: Normal Affect, Normal Mood Skin Exam: Warm, Dry, Intact, Normal Color, No Rash Lymphatic: No Adenopathy EKG INTERPRETATION EKG Date: 04/05/17 Time: 21:30 Rhythm: NSR Rate (Beats/Min): 72 [place]: LAD-Left Whiting Deviation P-Wave: Present QRS: Normal ST-T: Normal QT: Normal Comparison: NA - No Prior EKG Course - Vital Signs Text/Narrative:: 81 y.o.w.m with h/o HTN and Abd pain came to the ed due to dizziness and abd. pain. His SBP was 233 on arrival. Pt took his BP pills [employer]. Pt was not able to walk due to dizziness and oc numbness in his right leg. Pt denied h/o CVA. Pt's abd. pain is not new. He had an abd. CT on 02/11/2017 which showed a renal and pancreatic cyst and a sigmoid diverticulosis. The abd. pain is not getting worse , it comes and goes. Pt denied CP, N/V/D. No F/C. Pt c/o worst headache as well Pt lives with his . BP 233/104 pulse 62 Temp 97.7 PE: WNWD WM NAD no pronator drift, pt was able to hold his upper lower extr. up fpr more then 10 sec. C/O numbness at his r lower leg, which is new Imaging: CT Head: NAD pos microvascular disesase. Abd flat/upright: Nonspecific BGP. MRI head scheduled for Friday Labs: WBC 5,4 HGB 11,7 HKT 37.9 Na 130 K 4.1 GFR 49 Impression: Hypertensive emergency, CVA vs TIA, H/A, Paresthesia right lower leg, abd. discomfort, Tx: Ultram for abd. pain, Clonidine and Hydralazine, Tylenol, Nicardipine drip Reexam: Improved Plan: Admit to ICU, MRI brain scheduled for Friday PM Last Recorded V/S: Last Vital Signs Temp 36.8 C 04/07/17 11:30 Pulse 78 04/07/17 11:30 Resp 18 04/07/17 11:30 BP 189/79 H 04/07/17 11:30 Pulse Ox 97 04/07/17 11:30 - Orders/Labs/Meds Orders: Active Orders 24 hr Category Date Time Status Brain wo Cont [MR] Stat Exams 04/07/17 14:06 Taken Labs: Laboratory Tests 04/05/17 04/05/17 04/05/17 Range/Units 21:35 21:35 21:35 WBC 5.4 (4.5-12.0) X10-3/uL RBC 3.29 L (4.30-5.75) x10(6)uL Hgb 11.7 (11.5-15.5) g/dL Hct 32.8 (30.0-51.3) % MCV 99.6 H (80-96) fL MCH 35.6 H (27.7-33.6) pg MCHC 35.7 H (32.2-35.4) g/dL RDW 12.4 (11.5-15.5) % Plt Count 199 (125-369) X10(3)uL MPV 8.4 (7.4-10.4) fL Neut % (Auto) 71.0 (46-82) % Lymph % (Auto) 15.2 (13-37) % [place] % (Auto) 11.3 (4-12) % Eos % (Auto) 2 (1.0-5.0) % Baso % (Auto) 0 (0-2) % Neut # (Auto) 3.9 (1.6-8.3) # Lymph # (Auto) 0.8 (0.6-5.0) # Pacific # (Auto) 0.6 (0.0-1.3) # Eos # (Auto) 0.1 (0.0-0.8) # Baso # (Auto) 0.0 (0.0-0.2) # PT 10.9 (8.7-11.1) INR 1.08 (0.89-1.13) Sodium 130 L (135-145) mmol/L Potassium 3.7 (3.5-5.3) mmol/L Chloride 97 L D (100-110) mmol/L Carbon Dioxide 24 (23-29) mmol/L BUN 16 (8-23) mg/dL Creatinine 1.7 H (0.6-1.3) mg/dL Est Cr Clr Drug Dosing 31.32 mL/min Estimated GFR (MDRD) 39 L (>60) BUN/Creatinine Ratio 9.4 (9-20) Glucose 167 H (80-116) mg/dL Calcium 9.2 (8.6-10.2) mg/dL Total Bilirubin 0.9 (0.1-1.3) mg/dL Direct Bilirubin 0.1 (0.1-0.2) mg/dL AST 22 (5-27) IU/L ALT 17 (14-26) IU/L Alkaline Phosphatase 69 (56-112) IU/L Troponin I (0.02-0.06) NG/ML Total Protein 6.7 (6.0-8.0) g/dL Albumin 3.7 (3.2-4.6) g/dL Amylase 114 H (28-100) U/L Urine Color (YELLOW) Urine Appearance (CLEAR) Urine pH (5.0-6.5) Ur Specific Fowler (1.010-1.025) Urine Protein (NEGATIVE) mg/dL Urine Glucose (UA) (NEGATIVE) mg/dL Urine Ketones (NEGATIVE) mg/dL Urine Occult Blood (NEGATIVE) Urine Nitrite (NEGATIVE) Urine Bilirubin (NEGATIVE) Urine Urobilinogen (NEGATIVE) mg/dL Ur Leukocyte Esterase (NEGATIVE) Urine RBC (0) Urine WBC (0) Ur Squamous Epith Cells (NS,R,O) Urine Bacteria (NS) 04/05/17 04/05/17 Range/Units 21:35 21:43 WBC (4.5-12.0) X10-3/uL RBC (4.30-5.75) x10(6)uL Hgb (11.5-15.5) g/dL Hct (30.0-51.3) % MCV (80-96) fL MCH (27.7-33.6) pg MCHC (32.2-35.4) g/dL RDW (11.5-15.5) % Plt Count (125-369) X10(3)uL MPV (7.4-10.4) fL Neut % (Auto) (46-82) % Lymph % (Auto) (13-37) % [place] % (Auto) (4-12) % Eos % (Auto) (1.0-5.0) % Baso % (Auto) (0-2) % Neut # (Auto) (1.6-8.3) # Lymph # (Auto) (0.6-5.0) # Pacific # (Auto) (0.0-1.3) # Eos # (Auto) (0.0-0.8) # Baso # (Auto) (0.0-0.2) # PT (8.7-11.1) INR (0.89-1.13) Sodium (135-145) mmol/L Potassium (3.5-5.3) mmol/L Chloride (100-110) mmol/L Carbon Dioxide (23-29) mmol/L BUN (8-23) mg/dL Creatinine (0.6-1.3) mg/dL Est Cr Clr Drug Dosing mL/min Estimated GFR (MDRD) (>60) BUN/Creatinine Ratio (9-20) Glucose (80-116) mg/dL Calcium (8.6-10.2) mg/dL Total Bilirubin (0.1-1.3) mg/dL Direct Bilirubin (0.1-0.2) mg/dL AST (5-27) IU/L ALT (14-26) IU/L Alkaline Phosphatase (56-112) IU/L Troponin I 0.02 (0.02-0.06) NG/ML Total Protein (6.0-8.0) g/dL Albumin (3.2-4.6) g/dL Amylase (28-100) U/L Urine Color Yellow (YELLOW) Urine Appearance Clear (CLEAR) Urine pH 7.0 H (5.0-6.5) Ur Specific Fowler 1.010 (1.010-1.025) Urine Protein 30 H (NEGATIVE) mg/dL Urine Glucose (UA) Normal (NEGATIVE) mg/dL Urine Ketones Negative (NEGATIVE) mg/dL Urine Occult Blood Moderate H (NEGATIVE) Urine Nitrite Negative (NEGATIVE) Urine Bilirubin Negative (NEGATIVE) Urine Urobilinogen Normal (NEGATIVE) mg/dL Ur Leukocyte Esterase Negative (NEGATIVE) Urine RBC Not seen (0) Urine WBC 0-5 (0) Ur Squamous Epith Cells Rare (NS,R,O) Urine Bacteria Rare H (NS) Meds: Medications Discontinued Medications Generic Name Dose Route Start Last Admin Trade Name Freq PRN Reason Stop Dose Admin Acetaminophen 1,000 mg 04/06/17 00:53 04/06/17 00:57 Tylenol Extra Strength PO 04/06/17 00:54 1,000 mg ONETIME STA Administration Acetaminophen 650 mg 04/06/17 03:11 04/06/17 03:20 Tylenol PO 650 mg Q4H PRN Administration Headache/Pain Acetaminophen 1,000 mg 04/06/17 08:03 Tylenol Extra Strength PO Q6H PRN Pain Allopurinol 100 mg 04/06/17 09:00 04/07/17 09:00 Zyloprim PO 100 mg DAILY SUDHIR Administration Amlodipine Besylate 5 mg 04/07/17 09:00 04/07/17 09:00 Norvasc PO 5 mg DAILY SUDHIR Administration Aspirin 81 mg 04/06/17 09:00 Halfprin PO DAILY SUDHIR Carboxymethylcellulose 0 ml 04/06/17 08:03 Refresh Optive EYEBOTH ASDIRECTED PRN Dry Eyes Cholecalciferol 1,000 units 04/06/17 09:00 04/07/17 09:00 Vitamin D3 PO 1,000 units DAILY SUDHIR Administration Clonidine HCl 0.1 mg 04/05/17 22:52 04/05/17 23:37 Catapres PO 04/05/17 22:53 0.1 mg ONETIME ONE Administration Docusate Sodium 100 mg 04/05/17 23:40 Colace PO BID PRN Constipation Famotidine 20 mg 04/06/17 09:00 04/06/17 08:35 Pepcid PO 20 mg DAILY SUDHIR Administration Fluticasone Propionate 0 gm 04/06/17 08:03 Flonase NOHEMI ASDIRECTED PRN PHLEGM Glimepiride 2 mg 04/06/17 09:00 04/07/17 08:59 Amaryl PO 2 mg DAILY SUDHIR Administration Hydralazine HCl 10 mg 04/06/17 00:11 04/06/17 00:25 Apresoline IVPUSH 04/06/17 00:12 10 mg ONETIME STA Administration Hydralazine HCl 10 mg 04/06/17 04:19 04/06/17 04:24 Apresoline IVPUSH 04/06/17 04:20 10 mg ONETIME ONE Administration Nicardipine HCl 25 mg/ Sodium 250 mls @ 50 mls/hr 04/06/17 06:00 Chloride IV TITRATE SUDHIR Protocol 5 MG/HR Lisinopril 20 mg 04/06/17 09:00 04/06/17 08:35 Prinivil PO 20 mg BID SUDHIR Administration Lisinopril 40 mg 04/07/17 09:00 04/07/17 09:00 Prinivil PO 40 mg DAILY SUDHIR Administration Lorazepam 0.5 mg 04/07/17 12:27 04/07/17 12:51 Ativan PO 0.5 mg Q6H PRN Administration Anxiety Meclizine HCl 12.5 mg 04/06/17 11:02 Antivert PO Q4H PRN Dizziness Metoprolol Tartrate 12.5 mg 04/06/17 09:00 04/06/17 08:35 Lopressor PO 12.5 mg BID SUDHIR Administration Multivitamins/Minerals 1 tab 04/06/17 09:00 04/07/17 09:00 Vitamins And Minerals PO 1 tab DAILY SUDHIR Administration Ondansetron HCl 4 mg 04/05/17 23:40 Zofran IV Q4H PRN Nausea/Vomiting Pantoprazole Sodium 40 mg 04/05/17 23:40 04/06/17 00:30 Protonix Iv IVPUSH 04/05/17 23:41 40 mg ONETIME ONE Administration Pantoprazole Sodium 40 mg 04/06/17 09:00 04/07/17 09:00 Protonix PO 40 mg DAILY SUDHIR Administration Simvastatin 40 mg 04/06/17 21:00 04/06/17 20:45 Zocor PO 40 mg BEDTIME SUDHIR Administration Sodium Chloride 10 ml 04/05/17 21:27 04/07/17 09:01 Saline Flush FLUSH 10 ml ASDIRECTED PRN Administration Keep Vein Open Sucralfate 1 gm 04/06/17 09:00 04/06/17 20:45 Carafate PO 1 gm QID SUDHIR Administration Sucralfate 1 gm 04/07/17 08:30 04/07/17 12:08 Carafate PO 1 gm QIDACANDBED SUDHIR Administration Tramadol HCl 100 mg 04/05/17 22:36 04/05/17 22:45 Ultram PO 04/05/17 22:37 100 mg ONETIME ONE Administration Departure - Departure Time of Disposition: 20:00 Disposition: Admitted As Inpatient 64 Condition: Fair Clinical Impression: Hypertensive emergency without congestive heart failure - Discharge Information - My Orders Last 24 Hours: My Active Orders 04/07/17 14:06 Brain wo Cont [MR] Stat - Assessment/Plan Last 24 Hours: My Active Orders 04/07/17 14:06 Brain wo Cont [MR] Stat
[2017-04-05] MEDS ORDERED: traMADol 50 MG Tab PO ONE (22:36)
[2017-04-05] MEDS ORDERED: cloNIDine 0.1 MG Tab PO ONE (22:52)
[2017-04-05] MEDS ORDERED: Docusate Sodium 100 MG Cap PO PRN (23:40)
[2017-04-05] MEDS ORDERED: Pantoprazole 40 MG Vial IVPUSH ONE (23:40)
[2017-04-05] MEDS ORDERED: Ondansetron 4 MG/2 ML SDV IV PRN (23:40)
[2017-04-06] MEDS ORDERED: hydrALAZINE 20 MG/ML SDV IVPUSH STA (00:11)
[2017-04-06] MEDS: Sodium Chloride 0.9% 10 ML Syringe FLUSH PRN ×3 (00:25→04:25)
[2017-04-06] MEDS ORDERED: Acetaminophen 500 MG Tab PO STA (00:53)
[2017-04-06] MEDS ORDERED: Acetaminophen 325 MG Tab PO PRN (03:11)
[2017-04-06] MEDS ORDERED: hydrALAZINE 20 MG/ML SDV IVPUSH ONE (04:19)
[2017-04-06] MEDS ORDERED: niCARdipine HCl 25 MG in Sodium Chloride 0.9% 240 ML IV SCH (06:00)
[2017-04-06] MEDS ORDERED: Acetaminophen 500 MG Tab PO PRN (08:03)
[2017-04-06] MEDS ORDERED: Fluticasone Propionate Nasal Spray 16 GM Bottle NAS PRN (08:03)
[2017-04-06] MEDS ORDERED: Carboxymethylcellulose 0.5%/Glycerin 0.9% Ophth Soln 15 ML Bottle EYEBOTH PRN (08:03)
--- NOTE | 2017-04-06 08:20 | PCM.HP ---
H&P History of Present Illness - General Date of Service: 04/06/17 Source of Information: Patient History Limitations: Reports: No Limitations - History of Present Illness Initial Comments - Free Text/Narative: This is an 81-year-old male patient came to the ER in regards to abdominal pain. His blood pressures well over 200 and he was admitted for hypertensive crisis. He was given a draws line in the ER and put on low sodium diet. He was observed overnight. He's been having abdominal pain for several months and recently had a EGD that showed gastritis and esophagitis. He's been on different proton pump inhibitors and is on Carafate and Nexium currently. He was getting better but that her last night. Pain is over the epigastrium and it does not radiate. Says water makes it worse food makes it better. He's had no abdominal surgery. He denies nausea, vomiting, back easier, melena, diarrhea, constipation. He says a little left lateral chest pain anterior axillary line last night is not there today. No history of coronary artery disease. He has a history of diabetes and hypertension. Left Middle Abdominal Pain Score (Numeric/FACES): 5 Left Middle Mid-Posterior Chest Pain Score (Numeric/FACES): 2 - Related Data Allergies/Adverse Reactions: Allergies Allergy/AdvReac Type Severity Reaction Status Date / Time indomethacin [From Indocin] AdvReac Mild Nausea Verified 04/03/17 05:13 Home Medications: Home Meds Allopurinol [Zyloprim] 100 mg PO DAILY 12/07/16 [History] Glimepiride 2 mg PO DAILY 12/07/16 [History] Lisinopril 20 mg PO BID 12/07/16 [History] Simvastatin [Zocor] 40 mg PO BEDTIME 12/07/16 [History] Pantoprazole Sodium [Protonix] 40 mg PO DAILY 03/09/17 [History] Acetaminophen [Tylenol Extra Strength] 1,000 mg PO Q6HR PRN 03/21/17 [History] Aspirin [Halfprin] 81 mg PO DAILY 03/21/17 [History] Carboxymethylcellulos/Glycerin [Refresh Optive] 1 drop EYEBOTH ASDIRECTED PRN [History] Cholecalciferol (Vitamin D3) [Vitamin D3] 1,000 unit PO DAILY 03/21/17 [History] Famotidine [Pepcid] 20 mg PO DAILY 03/21/17 [History] Fluticasone Propionate [Flonase] 1 spray NS ASDIRECTED PRN 03/21/17 [History] Multivitamin with Minerals [Multiple Vitamin] 1 tab PO DAILY 03/21/17 [History] Metoprolol Tartrate [Metoprolol Tartrate] 12.5 mg BID 04/03/17 [History] Sucralfate [Sucralfate] 1 gm QID 04/03/17 [History] Past Medical History HEENT History: Reports: Cataract, Epistaxis, Hard of Hearing, Impaired Vision Cardiovascular History: Reports: Afib, Angina, Hypertension Respiratory History: Reports: SOB Gastrointestinal History: Reports: GERD Genitourinary History: Reports: Other (See Below) Other Genitourinary History: 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 Musculoskeletal History: Reports: Arthritis Neurological History: Reports: None Psychiatric History: Reports: None Endocrine/Metabolic History: Reports: Diabetes, Type II Hematologic History: Reports: Blood Transfusion(s) Immunologic History: Reports: None Oncologic (Cancer) History: Reports: Lymphoma, Prostate Other Oncologic History: skin CA nose Dermatologic History: Reports: None Other Dermatologic History: skin CA - Infectious Disease History Infectious Disease History: Reports: Chicken Pox, Measles, Mumps Other Infectious Disease History: mumps at 33 - Past Surgical History Head Surgeries/Procedures: Reports: None HEENT Surgical History: Reports: Cataract Surgery Cardiovascular Surgical History: Reports: None Respiratory Surgical History: Reports: None GI Surgical History: Reports: Colonoscopy, Hernia, Abdominal Male Surgical History: Reports: None Endocrine Surgical History: Reports: None Neurological Surgical History: Reports: None Musculoskeletal Surgical History: Reports: None Oncologic Surgical History: Reports: Other (See Below) Other Oncologic Surgeries/Procedures: radiated seeds implanted into prostate Dermatological Surgical History: Reports: None Social & Family History - Family History Family Medical History: Noncontributory - Tobacco Use Smoking Status *Q: Never Smoker Second Hand Smoke Exposure: No - Caffeine Use Caffeine Use: Reports: None Other Caffeine Use: decaf - Recreational Drug Use Recreational Drug Use: No H&P Review of Systems - Review of Systems: Review Of Systems: See Below General: Reports: Weakness. Denies: Fever, Chills, Malaise, Fatigue HEENT: Reports: No Symptoms Pulmonary: Reports: No Symptoms Cardiovascular: Reports: Chest Pain Gastrointestinal: Reports: Abdominal Pain Genitourinary: Reports: No Symptoms Musculoskeletal: Reports: No Symptoms Skin: Reports: No Symptoms Psychiatric: Reports: No Symptoms Neurological: Reports: Dizziness (He is been diagnosed with benign positional vertigo recently.) Hematologic/Lymphatic: Reports: No Symptoms Immunologic: Reports: No Symptoms Exam - Exam Exam: See Below - Vital Signs Vital Signs: Last Vital Signs Temp 98.1 F 04/06/17 02:00 Pulse 60 04/06/17 07:00 Resp 18 04/06/17 07:00 BP 170/67 H 04/06/17 07:00 Pulse Ox 97 04/06/17 07:00 Weight: 179 lb 14.4 oz - Exam General: Alert, Oriented, Lethargic HEENT: PERRLA, Hearing Intact, Mucosa Moist & [place], Posterior Pharynx Clear, TMs Clear Neck: Supple, Trachea Midline. No: Carotid Bruit, JVD Lungs: Clear to Auscultation, Normal Respiratory Effort Cardiovascular: Regular Rate, Regular Rhythm. No: Systolic Murmur, Diastolic Murmur (No fib today.) GI/Abdominal Exam: Normal Bowel Sounds, Soft, No Organomegaly, No Distention, No Abnormal Bruit, No Mass, Tender (Epigastrium on palpation). No: Guarding, Rigid, Rebound Back Exam: Normal Inspection, Full Range of Motion Extremities: Normal Inspection, Non-Tender, No Pedal Edema Skin: Warm, Intact Neurological: Normal Speech, Normal Tone Neuro Extensive - Mental Status: Alert, Oriented x3, Normal Mood/Affect Psychiatric: Alert, Normal Affect, Normal Mood - Patient Data Result Diagrams: 04/05/17 21:35 04/05/17 21:35 *Q Meaningful Use (ADM) - VTE *Q VTE Criteria *Q: - Stroke *Q Stroke Criteria *Q: - AMI *Q AMI Criteria *Q: - Problem List (1) Chest pain SNOMED Code(s): 19660054 ICD Code: R07.9 - CHEST PAIN, UNSPECIFIED Status: Acute Current Visit: No (2) Diabetes 1.5, managed as type 2 SNOMED Code(s): 335136518 ICD Code: E10.9 - TYPE 1 DIABETES MELLITUS WITHOUT COMPLICATIONS Status: Acute Current Visit: No (3) Esophagitis SNOMED Code(s): 81241734 ICD Code: K20.9 - ESOPHAGITIS, UNSPECIFIED Status: Acute Current Visit: No (4) Gastritis SNOMED Code(s): 0792451 ICD Code: K29.70 - GASTRITIS, UNSPECIFIED, WITHOUT BLEEDING Status: Acute Current Visit: No Qualifiers: Gastritis type: unspecified gastritis Chronicity: unspecified Gastritis bleeding: without bleeding Qualified Code(s): K29.70 - Gastritis, unspecified , without bleeding (5) Hypertensive urgency SNOMED Code(s): 969626712 ICD Code: I16.0 - HYPERTENSIVE URGENCY Status: Acute Current Visit: No Problem List Initiated/Reviewed/Updated: Yes Orders Last 24hrs: Active Orders 24 hr Category Date Time Status Accu Check [Blood Glucose Check, Bedside] [RC] TIDAC Care 04/06/17 08:08 Active Consistent Carbohydrate Diet [DIET] Diet 04/06/17 Lunch Ordered Acetaminophen [Tylenol Extra Strength] Med 04/06/17 08:03 Ordered 1,000 mg PO Q6HR PRN Acetaminophen [Tylenol] Med 04/06/17 03:11 Active 650 mg PO Q4H PRN Allopurinol [Zyloprim] Med 04/06/17 09:00 Ordered 100 mg PO DAILY Aspirin [Halfprin] Med 04/06/17 09:00 Ordered 81 mg PO DAILY Carboxymethylcellulos/Glycerin [Refresh Optive] Med 04/06/17 08:03 Ordered 1 drop EYEBOTH ASDIRECTED PRN Cholecalciferol (Vitamin D3) [Vitamin D3] Med 04/06/17 09:00 Ordered 1,000 unit PO DAILY Famotidine [Pepcid] Med 04/06/17 09:00 Ordered 20 mg PO DAILY Fluticasone Propionate [Flonase] Med 04/06/17 08:03 Ordered 1 spray NOHEMI ASDIRECTED PRN Glimepiride [Amaryl] Med 04/06/17 09:00 Ordered 2 mg PO DAILY Lisinopril [Prinivil] Med 04/06/17 09:00 Ordered 20 mg PO BID Metoprolol Tartrate [Lopressor] Med 04/06/17 09:00 Ordered 12.5 mg PO BID Multivitamin with Minerals [Multiple Vitamin] Med 04/06/17 09:00 Ordered 1 tab PO DAILY Pantoprazole [ProTONIX] Med 04/06/17 09:00 Ordered 40 mg PO DAILY Simvastatin [Zocor] Med 04/06/17 21:00 Ordered 40 mg PO BEDTIME Sucralfate [Carafate] Med 04/06/17 09:00 Ordered 1 gm PO QID Medication Orders Acetaminophen (Tylenol) 650 mg PO Q4H PRN PRN Reason: Headache/Pain Last Admin: 04/06/17 03:20 Dose: 650 mg Acetaminophen (Tylenol Extra Strength) 1,000 mg PO Q6H PRN PRN Reason: Pain Allopurinol (Zyloprim) 100 mg PO DAILY [facility] Aspirin (Halfprin) 81 mg PO DAILY [facility] Carboxymethylcellulose (Refresh Optive) 0 ml EYEBOTH ASDIRECTED PRN PRN Reason: Dry Eyes Cholecalciferol (Vitamin D3) 1,000 units PO DAILY [facility] Docusate Sodium (Colace) 100 mg PO BID PRN PRN Reason: Constipation Famotidine (Pepcid) 20 mg PO DAILY [facility] Fluticasone Propionate (Flonase) 0 gm NOHEMI ASDIRECTED PRN PRN Reason: PHLEGM Glimepiride (Amaryl) 2 mg PO DAILY [facility] Lisinopril (Prinivil) 20 mg PO BID [facility] Metoprolol Tartrate (Lopressor) 12.5 mg PO BID [facility] Multivitamins/Minerals (Vitamins And Minerals) 1 tab PO DAILY [facility] Ondansetron HCl (Zofran) 4 mg IV Q4H PRN PRN Reason: Nausea/Vomiting Pantoprazole Sodium (Protonix) 40 mg PO DAILY [facility] Simvastatin (Zocor) 40 mg PO BEDTIME [facility] Sodium Chloride (Saline Flush) 10 ml FLUSH ASDIRECTED PRN PRN Reason: Keep Vein Open Last Admin: 04/06/17 04:25 Dose: 10 ml Admin: 04/06/17 00:32 Dose: 10 ml Admin: 04/06/17 00:25 Dose: 10 ml Sucralfate (Carafate) 1 gm PO QID [facility] Assessment/Plan Comment:: 1. Admit for observation. 2. Patient 1 dose of hydralazine. Start his home medications and see how he does. 3. I reviewed his medical chart from both here at the hospital and through [place]. And his EGD showed esophagitis and gastritis. I reassured the patient that wrist pain is coming from. 4. CT report was reviewed and is negative. 5. Watch his blood pressure and if he gets better mobility discharge him home. Start home medications and see if that helps. 6. Hold aspirin
[2017-04-06] MEDS: Pantoprazole 40 MG Tab.CR PO SCH (08:35)
[2017-04-06] MEDS: Allopurinol 100 MG Tab PO SCH (08:35)
[2017-04-06] MEDS: Glimepiride 2 MG Tab PO SCH (08:35)
[2017-04-06] MEDS: Cholecalciferol (Vitamin D3) 1,000 Unit Tab PO SCH (08:35)
[2017-04-06] MEDS: Sucralfate 1 GM Tab PO SCH ×4 (08:35→20:45)
[2017-04-06] MEDS ORDERED: Metoprolol Tartrate 25 MG Tab PO SCH (09:00)
[2017-04-06] MEDS ORDERED: Lisinopril 20 MG Tab PO SCH (09:00)
[2017-04-06] MEDS ORDERED: Famotidine 20 MG Tab PO SCH (09:00)
[2017-04-06] MEDS ORDERED: Aspirin 81 MG Tab.EC PO SCH (09:00)
[2017-04-06] MEDS: Multivitamins, Therapeutic with Minerals Tab PO SCH (09:45)
[2017-04-06] MEDS ORDERED: Meclizine 12.5 MG Tab PO PRN (11:02)
[2017-04-06] MEDS ORDERED: Simvastatin 40 MG Tab PO SCH (21:00)
--- NOTE | 2017-04-07 08:03 | PCM.PN ---
- General Info Date of Service: 04/07/17 Admission Dx/Problem (Free Text): Patient states that he still has some dizziness. Abdominal pain is been better. The nurse reports there is very unsteady on his feet and is worried about him falling at home. Telemetry report from nurse pulse 160s minimal and no more 38. Blood pressure remains high. - Patient Data Vitals - Most Recent: Last Vital Signs Temp 98.2 F 04/07/17 04:00 Pulse 60 04/07/17 04:00 Resp 18 04/07/17 04:00 BP 182/76 H 04/07/17 04:00 Pulse Ox 97 04/07/17 04:00 Weight - Most Recent: 179 lb 14.4 oz I&O - Last 24 Hours: Intake & Output 04/06/17 04/07/17 04/07/17 22:59 06:59 14:59 Intake Total 250 Balance 250 Lab Results Last 24 Hours: Laboratory Results - last 24 hr 04/06/17 04/06/17 04/07/17 Range/Units 11: 16:34 06:05 Sodium 128 L (135-145) mmol/L Potassium 3.5 (3.5-5.3) mmol/L Chloride 97 L (100-110) mmol/L Carbon Dioxide 23 (23-29) mmol/L BUN 17 (8-23) mg/dL Creatinine 1.6 H (0.6-1.3) mg/dL Est Cr Clr Drug Dosing 33.27 mL/min Estimated GFR (MDRD) 41 L (>60) BUN/Creatinine Ratio 10.6 (9-20) Glucose 177 H (80-116) mg/dL POC Glucose 219 H 144 H (80-116) mg/dL Calcium 9.2 (8.6-10.2) mg/dL Med Orders - Current: Current Medications Acetaminophen (Tylenol) 650 mg PO Q4H PRN PRN Reason: Headache/Pain Last Admin: 04/06/17 03:20 Dose: 650 mg Acetaminophen (Tylenol Extra Strength) 1,000 mg PO Q6H PRN PRN Reason: Pain Allopurinol (Zyloprim) 100 mg PO DAILY [facility] Last Admin: 04/06/17 08:35 Dose: 100 mg Carboxymethylcellulose (Refresh Optive) 0 ml EYEBOTH ASDIRECTED PRN PRN Reason: Dry Eyes Cholecalciferol (Vitamin D3) 1,000 units PO DAILY [facility] Last Admin: 04/06/17 08:35 Dose: 1,000 units Docusate Sodium (Colace) 100 mg PO BID PRN PRN Reason: Constipation Famotidine (Pepcid) 20 mg PO DAILY [facility] Last Admin: 04/06/17 08:35 Dose: 20 mg Fluticasone Propionate (Flonase) 0 gm NOHEMI ASDIRECTED PRN PRN Reason: PHLEGM Glimepiride (Amaryl) 2 mg PO DAILY [facility] Last Admin: 04/06/17 08:35 Dose: 2 mg Lisinopril (Prinivil) 40 mg PO DAILY [facility] Meclizine HCl (Antivert) 12.5 mg PO Q4H PRN PRN Reason: Dizziness Multivitamins/Minerals (Vitamins And Minerals) 1 tab PO DAILY [facility] Last Admin: 04/06/17 09:45 Dose: Not Given Ondansetron HCl (Zofran) 4 mg IV Q4H PRN PRN Reason: Nausea/Vomiting Pantoprazole Sodium (Protonix) 40 mg PO DAILY [facility] Last Admin: 04/06/17 08:35 Dose: 40 mg Simvastatin (Zocor) 40 mg PO BEDTIME [facility] Last Admin: 04/06/17 20:45 Dose: 40 mg Sodium Chloride (Saline Flush) 10 ml FLUSH ASDIRECTED PRN PRN Reason: Keep Vein Open Last Admin: 04/06/17 04:25 Dose: 10 ml Sucralfate (Carafate) 1 gm PO QID [facility] Last Admin: 04/06/17 20:45 Dose: 1 gm Discontinued Medications Acetaminophen (Tylenol Extra Strength) 1,000 mg PO ONETIME STA Stop: 04/06/17 00:54 Last Admin: 04/06/17 00:57 Dose: 1,000 mg Aspirin (Halfprin) 81 mg PO DAILY [facility] Clonidine HCl (Catapres) 0.1 mg PO ONETIME ONE Stop: 04/05/17 22:53 Last Admin: 04/05/17 23:37 Dose: 0.1 mg Hydralazine HCl (Apresoline) 10 mg IVPUSH ONETIME STA Stop: 04/06/17 00:12 Last Admin: 04/06/17 00:25 Dose: 10 mg Hydralazine HCl (Apresoline) 10 mg IVPUSH ONETIME ONE Stop: 04/06/17 04:20 Last Admin: 04/06/17 04:24 Dose: 10 mg Nicardipine HCl 25 mg/ Sodium (Chloride) 250 mls @ 50 mls/hr IV TITRATE [facility]; 5 MG/HR PRN Reason: Protocol Lisinopril (Prinivil) 20 mg PO BID [facility] Last Admin: 04/06/17 08:35 Dose: 20 mg Metoprolol Tartrate (Lopressor) 12.5 mg PO BID [facility] Last Admin: 04/06/17 08:35 Dose: 12.5 mg Pantoprazole Sodium (Protonix Iv) 40 mg IVPUSH ONETIME ONE Stop: 04/05/17 23:41 Last Admin: 04/06/17 00:30 Dose: 40 mg Tramadol HCl (Ultram) 100 mg PO ONETIME ONE Stop: 04/05/17 22:37 Last Admin: 04/05/17 22:45 Dose: 100 mg - Exam General: Alert, Oriented, Cooperative Lungs: Clear to Auscultation, Normal Respiratory Effort Cardiovascular: Regular Rate, Regular Rhythm, No Murmurs Extremities: No Pedal Edema - Problem List & Annotations (1) Esophagitis SNOMED Code(s): 24225854 Code(s): K20.9 - ESOPHAGITIS, UNSPECIFIED Status: Acute Current Visit: No (2) Gastritis SNOMED Code(s): 5652283 Code(s): K29.70 - GASTRITIS, UNSPECIFIED, WITHOUT BLEEDING Status: Acute Current Visit: No Qualifiers: Gastritis type: unspecified gastritis Chronicity: unspecified Gastritis bleeding: without bleeding Qualified Code(s): K29.70 - Gastritis, unspecified , without bleeding (3) Hypertensive urgency SNOMED Code(s): 136546114 Code(s): I16.0 - HYPERTENSIVE URGENCY Status: Acute Current Visit: No (4) Sinus bradycardia SNOMED Code(s): 53399714 Code(s): R00.1 - BRADYCARDIA, UNSPECIFIED Status: Acute Current Visit: Yes (5) Type 2 diabetes mellitus SNOMED Code(s): 96586746 Code(s): E11.9 - TYPE 2 DIABETES MELLITUS WITHOUT COMPLICATIONS Status: Acute Current Visit: Yes - Problem List Review Problem List Initiated/Reviewed/Updated: Yes - My Orders Last 24 Hours: My Active Orders 04/06/17 08:03 Acetaminophen [Tylenol Extra Strength] 1,000 mg PO Q6H PRN Carboxymethylcellulos/Glycerin [Refresh Optive] 0 ml EYEBOTH ASDIRECTED PRN Fluticasone Propionate [Flonase] 0 gm NOHEMI ASDIRECTED PRN 04/06/17 08:08 Accu Check [Blood Glucose Check, Bedside] [RC] TIDAC 04/06/17 09:00 Allopurinol [Zyloprim] 100 mg PO DAILY Cholecalciferol (Vitamin D3) [Vitamin D3] 1,000 units PO DAILY Famotidine [Pepcid] 20 mg PO DAILY Glimepiride [Amaryl] 2 mg PO DAILY Multivitamins/Minerals [Vitamins and Minerals] 1 tab PO DAILY Pantoprazole [ProTONIX] 40 mg PO DAILY Sucralfate [Carafate] 1 gm PO QID 04/06/17 11:02 Meclizine [Antivert] 12.5 mg PO Q4H PRN 04/06/17 21:00 Simvastatin [Zocor] 40 mg PO BEDTIME 04/06/17 Lunch Consistent Carbohydrate Diet [DIET] 04/07/17 08:00 Consult to Occupational Therapy [OT Evaluation and Treatment] [CONS] Routine Consult to Physical Therapy [PT Evaluation and Treatment] [CONS] Routine 04/07/17 09:00 Lisinopril [Prinivil] 40 mg PO DAILY amLODIPine [Norvasc] 5 mg PO DAILY - Plan Plan:: 1. MRI brain today. 2. Norvasc 5 mg once a day by mouth. 3. Continue to hold beta gina. 4. PT/OT evaluation regards to patient's home safety, dizziness, coronation and strengthening.
[2017-04-07] MEDS: Glimepiride 2 MG Tab PO SCH (08:59)
[2017-04-07] MEDS: Sucralfate 1 GM Tab PO SCH ×2 (08:59→12:08)
[2017-04-07] MEDS: Pantoprazole 40 MG Tab.CR PO SCH (09:00)
[2017-04-07] MEDS: Multivitamins, Therapeutic with Minerals Tab PO SCH (09:00)
[2017-04-07] MEDS: Allopurinol 100 MG Tab PO SCH (09:00)
[2017-04-07] MEDS ORDERED: amLODIPine 5 MG Tab PO SCH (09:00)
[2017-04-07] MEDS: Cholecalciferol (Vitamin D3) 1,000 Unit Tab PO SCH (09:00)
[2017-04-07] MEDS: Sodium Chloride 0.9% 10 ML Syringe FLUSH PRN (09:01)
[2017-04-07 11:59] VITALS: BP 189/79
--- NOTE | 2017-04-07 12:01 | CR ---
INDICATION: Abdominal pain. FLAT AND UPRIGHT ABDOMEN: Radiation seed implants over the prostate. Scoliotic curvature thoracolumbar spine to the left and lumbar spine to the right with secondary degenerative changes throughout the lumbar spine. Nonspecific bowel gas pattern with scattered stool and bowel gas. No dilated loops of bowel to suggest an obstructive process. There are probably some diverticula over the sigmoid colon. Lung bases are clear bilaterally. IMPRESSION: Nonspecific abdomen. MTDD
[2017-04-07] MEDS ORDERED: LORazepam 0.5 MG Tab PO PRN (12:27)
--- NOTE | 2017-04-07 12:59 | PCM.SN ---
- Free Text/Narrative Note: PT evaluated the patient felt that he was safe to go home. We'll discharge to home after his MRI.
--- NOTE | 2017-04-07 13:06 | PCM.DCSUM1 ---
Discharge Summary - Hospital Course Free Text/Narrative:: Hospital course-patient was admitted to the ICU and put on hydralazine 1. Blood pressure came down somewhat. His regular medications were started the next morning including lisinopril 20 mg and metoprolol 12.5 mg twice a day. We observed him and he had some sinus bradycardia down with a rate of 38. So he stopped the metoprolol and his rate was within normal limits. His blood pressure still remained systolically around 170-180. Started some Norvasc 5 mg a day. Patient had some dizzy spells off and on. ER doc ordered an MRI which will be done today before he leaves. CT scan of the head shows no acute lesions. Patient had epigastric pain. Reviewed his chart he has esophagitis and gastritis. Held his aspirin. He felt much better. Continued his full- time pump inhibitor and Carafate. Brief History: This is an 81-year-old male patient came to the ER in regards to abdominal pain. His blood pressures well over 200 and he was admitted for hypertensive crisis. He was given a draws line in the ER and put on low sodium diet. He was observed overnight. He's been having abdominal pain for several months and recently had a EGD that showed gastritis and esophagitis. He's been on different proton pump inhibitors and is on Carafate and Nexium currently. He was getting better but that her last night. Pain is over the epigastrium and it does not radiate. Says water makes it worse food makes it better. He's had no abdominal surgery. He denies nausea, vomiting, back easier, melena, diarrhea, constipation. He says a little left lateral chest pain anterior axillary line last night is not there today. No history of coronary artery disease. He has a history of diabetes and hypertension - Discharge Data Discharge Date: 04/07/17 Discharge Disposition: Home, Self-Care 01 Condition: Good - Discharge Diagnosis/Problem(s) (1) Esophagitis SNOMED Code(s): 54543462 ICD Code: K20.9 - ESOPHAGITIS, UNSPECIFIED Status: Acute Current Visit: No (2) Gastritis SNOMED Code(s): 7689889 ICD Code: K29.70 - GASTRITIS, UNSPECIFIED, WITHOUT BLEEDING Status: Acute Current Visit: No Qualifiers: Gastritis type: unspecified gastritis Chronicity: unspecified Gastritis bleeding: without bleeding Qualified Code(s): K29.70 - Gastritis, unspecified , without bleeding (3) Hypertensive urgency SNOMED Code(s): 334910346 ICD Code: I16.0 - HYPERTENSIVE URGENCY Status: Acute Current Visit: No (4) Sinus bradycardia SNOMED Code(s): 73025302 ICD Code: R00.1 - BRADYCARDIA, UNSPECIFIED Status: Acute Current Visit: Yes (5) Type 2 diabetes mellitus SNOMED Code(s): 10362787 ICD Code: E11.9 - TYPE 2 DIABETES MELLITUS WITHOUT COMPLICATIONS Status: Acute Current Visit: Yes (6) Hyponatremia SNOMED Code(s): 52024519 ICD Code: E87.1 - HYPO-OSMOLALITY AND HYPONATREMIA Status: Acute Current Visit: Yes - Patient Summary/Data Consults: Consultations 04/07/17 08:00 Consult to Occupational Therapy [OT Evaluation and Treatment] [CONS] Routine Please Evaluate and Treat. OT Reason for Consult: Strengthening This query below is only for informational purposes and is not editable. Admission Diagnosis/Problem: Hypertensive emergency Consult to Physical Therapy [PT Evaluation and Treatment] [CONS] Routine Please Evaluate and Treat. PT Reason for Consult: Strengthening This query below is only for informational purposes and is not editable. Admission Diagnosis/Problem: Hypertensive emergency - Patient Instructions Diet: Diabetic Diet Activity: Apply Ice Driving: May Drive Today Showering/Bathing: May Shower Notify Provider of: Increased Pain, Nausea and/or Vomiting Other/Special Instructions: Recheck with Luli Lester in 7-10 days. BMP with the appointment. - Discharge Plan Prescriptions/Med Rec: amLODIPine [Norvasc] 5 mg PO DAILY #30 tablet Lisinopril 40 mg PO DAILY 3 Days #30 tablet Home Medications: Home Meds Allopurinol [Zyloprim] 100 mg PO DAILY 12/07/16 [History] Glimepiride 2 mg PO DAILY 12/07/16 [History] Simvastatin [Zocor] 40 mg PO BEDTIME 12/07/16 [History] Pantoprazole Sodium [Protonix] 40 mg PO DAILY 03/09/17 [History] Acetaminophen [Tylenol Extra Strength] 1,000 mg PO Q6HR PRN 03/21/17 [History] Carboxymethylcellulos/Glycerin [Refresh Optive] 1 drop EYEBOTH ASDIRECTED PRN [History] Cholecalciferol (Vitamin D3) [Vitamin D3] 1,000 unit PO DAILY 03/21/17 [History] Fluticasone Propionate [Flonase] 1 spray NS DAILY PRN 03/21/17 [History] Multivitamin with Minerals [Multiple Vitamin] 1 tab PO DAILY 03/21/17 [History] Sucralfate 1 gm PO QID 04/03/17 [History] Lisinopril 40 mg PO DAILY 3 Days #30 tablet 04/07/17 [Rx] amLODIPine [Norvasc] 5 mg PO DAILY #30 tablet 04/07/17 [Rx] Patient Handouts: Diabetes and Standards of Medical Care, Deep Vein Thrombosis Forms: ED Department Discharge Referrals: Luli Lester PA [Primary Care Provider] - - Discharge Summary/Plan Comment DC Time >30 min.: No - Patient Data Vitals - Most Recent: Last Vital Signs Temp 98.2 F 04/07/17 11:30 Pulse 78 04/07/17 11:30 Resp 18 04/07/17 11:30 BP 189/79 H 04/07/17 11:30 Pulse Ox 97 04/07/17 11:30 Weight - Most Recent: 179 lb 14.4 oz I&O - Last 24 hours: Intake & Output 04/06/17 04/07/17 04/07/17 22:59 06:59 14:59 Intake Total 250 Balance 250 Lab Results - Last 24 hrs: Laboratory Results - last 24 hr 04/06/17 04/07/17 04/07/17 Range/Units 16:34 06:05 11:38 Sodium 128 L (135-145) mmol/L Potassium 3.5 (3.5-5.3) mmol/L Chloride 97 L (100-110) mmol/L Carbon Dioxide 23 (23-29) mmol/L BUN 17 (8-23) mg/dL Creatinine 1.6 H (0.6-1.3) mg/dL Est Cr Clr Drug Dosing 33.27 mL/min Estimated GFR (MDRD) 41 L (>60) BUN/Creatinine Ratio 10.6 (9-20) Glucose 177 H (80-116) mg/dL POC Glucose 144 H 179 H (80-116) mg/dL Calcium 9.2 (8.6-10.2) mg/dL Med Orders - Current: Current Medications Acetaminophen (Tylenol) 650 mg PO Q4H PRN PRN Reason: Headache/Pain Last Admin: 04/06/17 03:20 Dose: 650 mg Acetaminophen (Tylenol Extra Strength) 1,000 mg PO Q6H PRN PRN Reason: Pain Allopurinol (Zyloprim) 100 mg PO DAILY [facility] Last Admin: 04/07/17 09:00 Dose: 100 mg Amlodipine Besylate (Norvasc) 5 mg PO DAILY [facility] Last Admin: 04/07/17 09:00 Dose: 5 mg Carboxymethylcellulose (Refresh Optive) 0 ml EYEBOTH ASDIRECTED PRN PRN Reason: Dry Eyes Cholecalciferol (Vitamin D3) 1,000 units PO DAILY [facility] Last Admin: 04/07/17 09:00 Dose: 1,000 units Docusate Sodium (Colace) 100 mg PO BID PRN PRN Reason: Constipation Fluticasone Propionate (Flonase) 0 gm NOHEMI ASDIRECTED PRN PRN Reason: PHLEGM Glimepiride (Amaryl) 2 mg PO DAILY [facility] Last Admin: 04/07/17 08:59 Dose: 2 mg Lisinopril (Prinivil) 40 mg PO DAILY [facility] Last Admin: 04/07/17 09:00 Dose: 40 mg Lorazepam (Ativan) 0.5 mg PO Q6H PRN PRN Reason: Anxiety Last Admin: 04/07/17 12:51 Dose: 0.5 mg Meclizine HCl (Antivert) 12.5 mg PO Q4H PRN PRN Reason: Dizziness Multivitamins/Minerals (Vitamins And Minerals) 1 tab PO DAILY [facility] Last Admin: 04/07/17 09:00 Dose: 1 tab Ondansetron HCl (Zofran) 4 mg IV Q4H PRN PRN Reason: Nausea/Vomiting Pantoprazole Sodium (Protonix) 40 mg PO DAILY [facility] Last Admin: 04/07/17 09:00 Dose: 40 mg Simvastatin (Zocor) 40 mg PO BEDTIME [facility] Last Admin: 04/06/17 20:45 Dose: 40 mg Sodium Chloride (Saline Flush) 10 ml FLUSH ASDIRECTED PRN PRN Reason: Keep Vein Open Last Admin: 04/07/17 09:01 Dose: 10 ml Sucralfate (Carafate) 1 gm PO QIDACANDBED [facility] Last Admin: 04/07/17 12:08 Dose: 1 gm Discontinued Medications Acetaminophen (Tylenol Extra Strength) 1,000 mg PO ONETIME STA Stop: 04/06/17 00:54 Last Admin: 04/06/17 00:57 Dose: 1,000 mg Aspirin (Halfprin) 81 mg PO DAILY [facility] Clonidine HCl (Catapres) 0.1 mg PO ONETIME ONE Stop: 04/05/17 22:53 Last Admin: 04/05/17 23:37 Dose: 0.1 mg Famotidine (Pepcid) 20 mg PO DAILY [facility] Last Admin: 04/06/17 08:35 Dose: 20 mg Hydralazine HCl (Apresoline) 10 mg IVPUSH ONETIME STA Stop: 04/06/17 00:12 Last Admin: 04/06/17 00:25 Dose: 10 mg Hydralazine HCl (Apresoline) 10 mg IVPUSH ONETIME ONE Stop: 04/06/17 04:20 Last Admin: 04/06/17 04:24 Dose: 10 mg Nicardipine HCl 25 mg/ Sodium (Chloride) 250 mls @ 50 mls/hr IV TITRATE [facility]; 5 MG/HR PRN Reason: Protocol Lisinopril (Prinivil) 20 mg PO BID [facility] Last Admin: 04/06/17 08:35 Dose: 20 mg Metoprolol Tartrate (Lopressor) 12.5 mg PO BID [facility] Last Admin: 04/06/17 08:35 Dose: 12.5 mg Pantoprazole Sodium (Protonix Iv) 40 mg IVPUSH ONETIME ONE Stop: 04/05/17 23:41 Last Admin: 04/06/17 00:30 Dose: 40 mg Sucralfate (Carafate) 1 gm PO QID [facility] Last Admin: 04/06/17 20:45 Dose: 1 gm Tramadol HCl (Ultram) 100 mg PO ONETIME ONE Stop: 04/05/17 22:37 Last Admin: 04/05/17 22:45 Dose: 100 mg *Q Meaningful Use (DIS) - VTE *Q VTE Criteria *Q: - Stroke *Q Stroke Criteria *Q: - AMI *Q AMI Criteria *Q:
== END 2017-04-07 15:30 | disposition home or self-care (01) | DRG 305 ==
LOC: FB.ED 21:16 → FB.MS 23:40 → OBSVTOIN 04-06 00:54 → FB.ICU 04-06 00:57 → FB.MS 04-07 08:04
PROVIDERS: ADMIT Family Medicine; ATTEND Family Medicine
DX: I16.1 Hypertensive emergency (principal); E87.1 Hypo-osmolality and hyponatremia; I10 Essential (primary) hypertension; K21.9 Gastro-esophageal reflux disease without esophagitis; K20.9 Esophagitis, unspecified; K29.70 Gastritis, unspecified, without bleeding; I16.0 Hypertensive urgency; R00.1 Bradycardia, unspecified; E11.9 Type 2 diabetes mellitus without complications; Z79.899 Other long term (current) drug therapy; Z88.8 Allergy status to other drugs, medicaments and biological substances; I48.91 Unspecified atrial fibrillation; Z85.828 Personal history of other malignant neoplasm of skin; R07.9 Chest pain, unspecified; R42 Dizziness and giddiness
CPT/HCPCS: 36415; 70450; 74020; 80048; 80076; 81001; 82150; 84484; 85025; 85610; 93005; 96374; 96375; 99285; A9270 ×2; C9113; J0360; J7050 ×2; 70551; 82962; 97161-GP; 97165-GO

== ENCOUNTER 2017-04-08 02:31 | Observation (INO) | payer MEDICARE ==
--- NOTE | 2017-04-08 03:20 | EDM.PDOC ---
ED HPI GENERAL MEDICAL PROBLEM - General Chief Complaint: Neuro Symptoms/Deficits Stated Complaint: CONFUSED Time Seen by Provider: 04/08/17 03:15 Source of Information: Reports: Patient, EMS, EMS Notes Reviewed History Limitations: Reports: Altered Mental Status - History of Present Illness INITIAL COMMENTS - FREE TEXT/NARRATIVE: Bryan returns to [facility] ED by EMS following call by spouse that he was confused, talking nonsensically. She had been waking him up hourly to go to the bathroom out of concern that he would be incontinent. He fell once after getting out of bed, felt dizziness, and apparently slumped to the floor. He reported a new lower back pain, and managed to go back to sleep. He denies headache, chest pain or LOC. He is having trouble concentrating, following directions, and preseverating on current confusional state. He was recently discharged for high blood pressure and dizziness yesterday, and attending physician did order a brain MRI before discharge which was reportedly negative for stroke. He is a poor historian. His spouse arrived about an hour after his admission, and appeared to have some memory issues of her own. His MMSE score 18/30. - Related Data Allergies Allergy/AdvReac Type Severity Reaction Status Date / Time indomethacin [From Indocin] AdvReac Mild Nausea Verified 04/08/17 04:49 Home Meds: Home Meds Allopurinol [Zyloprim] 100 mg PO DAILY 12/07/16 [History] Glimepiride 2 mg PO DAILY 12/07/16 [History] Simvastatin [Zocor] 40 mg PO BEDTIME 12/07/16 [History] Pantoprazole Sodium [Protonix] 40 mg PO DAILY 03/09/17 [History] Acetaminophen [Tylenol Extra Strength] 1,000 mg PO Q6HR PRN 03/21/17 [History] Carboxymethylcellulos/Glycerin [Refresh Optive] 1 drop EYEBOTH ASDIRECTED PRN [History] Cholecalciferol (Vitamin D3) [Vitamin D3] 1,000 unit PO DAILY 03/21/17 [History] Fluticasone Propionate [Flonase] 1 spray NS DAILY PRN 03/21/17 [History] Multivitamin with Minerals [Multiple Vitamin] 1 tab PO DAILY 03/21/17 [History] Sucralfate 1 gm PO QID 04/03/17 [History] Lisinopril 40 mg PO DAILY 3 Days #30 tablet MDD for 3 days 04/07/17 [Rx] amLODIPine [Norvasc] 5 mg PO DAILY #30 tablet 04/07/17 [Rx] Past Medical History HEENT History: Reports: Cataract, Epistaxis, Hard of Hearing, Impaired Vision Cardiovascular History: Reports: Afib, Angina, Hypertension Respiratory History: Reports: SOB Gastrointestinal History: Reports: GERD Genitourinary History: Reports: Other (See Below) Other Genitourinary History: 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 Musculoskeletal History: Reports: Arthritis Neurological History: Reports: None Psychiatric History: Reports: None Endocrine/Metabolic History: Reports: Diabetes, Type II Hematologic History: Reports: Blood Transfusion(s) Immunologic History: Reports: None Oncologic (Cancer) History: Reports: Lymphoma, Prostate Other Oncologic History: skin CA nose Dermatologic History: Reports: None Other Dermatologic History: skin CA - Infectious Disease History Infectious Disease History: Reports: Chicken Pox, Measles, Mumps Other Infectious Disease History: mumps at 33 - Past Surgical History Head Surgeries/Procedures: Reports: None HEENT Surgical History: Reports: Cataract Surgery Cardiovascular Surgical History: Reports: None Respiratory Surgical History: Reports: None GI Surgical History: Reports: Colonoscopy, Hernia, Abdominal Male Surgical History: Reports: None Endocrine Surgical History: Reports: None Neurological Surgical History: Reports: None Musculoskeletal Surgical History: Reports: None Oncologic Surgical History: Reports: Other (See Below) Other Oncologic Surgeries/Procedures: radiated seeds implanted into prostate Dermatological Surgical History: Reports: None Social & Family History - Family History Family Medical History: Noncontributory - Tobacco Use Smoking Status *Q: Never Smoker Second Hand Smoke Exposure: No - Caffeine Use Caffeine Use: Reports: None Other Caffeine Use: decaf - Recreational Drug Use Recreational Drug Use: No ED ROS GENERAL - Review of Systems Review Of Systems: Unable To Obtain (unreliable historian) - Physical Exam Exam: See Below Exam Limited By: Altered Mental Status General Appearance: Alert, WD/WN, Anxious Eye Exam: Bilateral Eye: Normal Inspection, PERRL Ears: Normal External Exam, Normal TMs Nose: Normal Inspection Throat/Mouth: Normal Inspection, Normal Lips, Normal Teeth, Normal Gums, Normal Oropharynx, Normal Voice Head Exam: Normocephalic Neck: Normal Inspection, Supple, Non-Tender, Full Range of Motion Respiratory/Chest: Lungs Clear, Normal Breath Sounds, Chest Non-Tender Cardiovascular: Normal Peripheral Pulses, No Edema, No Gallop, No JVD, No Murmur , Irregularly Irregular GI/Abdominal: Normal Bowel Sounds, Soft, Non-Tender, No Organomegaly, No Distention, No Abnormal Bruit, No Mass (Male) Exam: Deferred Rectal (Males) Exam: Deferred Neuro Exam (Abbreviated): Alert, No Motor/Sensory Deficits, Confused, Disoriented Back Exam: Normal Inspection, Other (minor lower back tenderness affecting paraspinal mm.) Extremities: Normal Inspection Psychiatric: Other (mood neutral; affect flat; impairments to attention, concentration; immediate and working memory; language seemed fluent at this time , with some impaired content, comprehension, and inability to complete simple tasks; executive functions, calculations;) Skin Exam: Warm, Dry Course - Vital Signs Text/Narrative:: Bryan was observed in the ED for about 2 hours. Law enforcement on the scene was interviewed, and seemed more concerned about spouse's capacity to assess and manage her . EMS was also interviewed and notes reviewed, corroborating law enforcement. Bryan remains confused about recent events, but seems less anxious at this time. He will be readmitted for observation and follow up with hospitalist. Last Recorded V/S: Last Vital Signs Temp 36.8 C 04/08/17 02:35 Pulse 78 04/08/17 02:35 Resp 22 H 04/08/17 02:35 BP 168/89 H 04/08/17 02:35 Pulse Ox 98 04/08/17 02:35 - Orders/Labs/Meds Orders: Active Orders 24 hr Category Date Time Status EKG Documentation Completion [RC] ASDIRECTED Care 04/08/17 03:10 Active EKG 12 Lead [EK] Routine Ther 04/08/17 03:08 Ordered Labs: Laboratory Tests 04/08/17 04/08/17 04/08/17 Range/Units 03:30 03:30 03:30 WBC 8.1 (4.5-12.0) X10-3/uL RBC 3.51 L (4.30-5.75) x10(6)uL Hgb 12.3 (11.5-15.5) g/dL Hct 35.2 (30.0-51.3) % MCV 100.2 H (80-96) fL MCH 35.2 H (27.7-33.6) pg MCHC 35.1 (32.2-35.4) g/dL RDW 12.5 (11.5-15.5) % Plt Count 204 (125-369) X10(3)uL MPV 8.5 (7.4-10.4) fL Neut % (Auto) 77.8 (46-82) % Lymph % (Auto) 9.6 L (13-37) % [place] % (Auto) 11.1 (4-12) % Eos % (Auto) 1 (1.0-5.0) % Baso % (Auto) 0 (0-2) % Neut # (Auto) 6.3 (1.6-8.3) # Lymph # (Auto) 0.8 (0.6-5.0) # [place] # (Auto) 0.9 (0.0-1.3) # Eos # (Auto) 0.1 (0.0-0.8) # Baso # (Auto) 0.0 (0.0-0.2) # Add Manual Diff ESR 36 H (0-15) mm/hr D-Dimer, Quantitative 2510 H (100-400) ng/mL Sodium 134 L (135-145) mmol/L Potassium 3.7 (3.5-5.3) mmol/L Chloride 98 L (100-110) mmol/L Carbon Dioxide 25 (21-32) mmol/L BUN 23 H (7-18) mg/dL Creatinine 1.8 H (0.70-1.30) mg/dL Est Cr Clr Drug Dosing TNP Estimated GFR (MDRD) 36 L (>60) BUN/Creatinine Ratio 12.8 (9-20) Glucose 172 H (80-116) mg/dL Calcium 9.2 (8.6-10.2) mg/dL Troponin I (<0.017-0.056) ng/mL C-Reactive Protein (0.5-0.9) mg/dL 04/08/17 Range/Units 03:30 WBC (4.5-12.0) X10-3/uL RBC (4.30-5.75) x10(6)uL Hgb (11.5-15.5) g/dL Hct (30.0-51.3) % MCV (80-96) fL MCH (27.7-33.6) pg MCHC (32.2-35.4) g/dL RDW (11.5-15.5) % Plt Count (125-369) X10(3)uL MPV (7.4-10.4) fL Neut % (Auto) (46-82) % Lymph % (Auto) (13-37) % [place] % (Auto) (4-12) % Eos % (Auto) (1.0-5.0) % Baso % (Auto) (0-2) % Neut # (Auto) (1.6-8.3) # Lymph # (Auto) (0.6-5.0) # [place] # (Auto) (0.0-1.3) # Eos # (Auto) (0.0-0.8) # Baso # (Auto) (0.0-0.2) # Add Manual Diff ESR (0-15) mm/hr D-Dimer, Quantitative (100-400) ng/mL Sodium (135-145) mmol/L Potassium (3.5-5.3) mmol/L Chloride (100-110) mmol/L Carbon Dioxide (21-32) mmol/L BUN (7-18) mg/dL Creatinine (0.70-1.30) mg/dL Est Cr Clr Drug Dosing Estimated GFR (MDRD) (>60) BUN/Creatinine Ratio (9-20) Glucose (80-116) mg/dL Calcium (8.6-10.2) mg/dL Troponin I 0.024 (<0.017-0.056) ng/mL C-Reactive Protein 0.4 L (0.5-0.9) mg/dL Departure - Departure Time of Disposition: 05:15 Disposition: Refer to Observation Condition: Fair Clinical Impression: Confusional state - Discharge Information Referrals: Luli Lester PA [Primary Care Provider] - Forms: ED Department Discharge - Problem List & Annotations (1) Confusional state SNOMED Code(s): 304982318 Code(s): F44.89 - OTHER DISSOCIATIVE AND CONVERSION DISORDERS Status: Acute Current Visit: Yes Annotation/Comment:: Re admit to observation. Patient and spouse in need of neuropsychological assessment and social security assessor. - Problem List Review Problem List Initiated/Reviewed/Updated: Yes - My Orders Last 24 Hours: My Active Orders 04/08/17 03:08 EKG 12 Lead [EK] Routine 04/08/17 03:10 EKG Documentation Completion [RC] ASDIRECTED - Assessment/Plan Last 24 Hours: My Active Orders 04/08/17 03:08 EKG 12 Lead [EK] Routine 04/08/17 03:10 EKG Documentation Completion [RC] ASDIRECTED Plan: Per hospitalist.
[2017-04-08] MEDS ORDERED: Non-Formulary Medication 1 Each (Carboxymethylcellulos/Glycerin [Refresh Optive] 1 DROP) EYEBOTH PRN (05:37)
[2017-04-08] MEDS ORDERED: Non-Formulary Medication 1 Each (Fluticasone Propionate [Flonase] 1 SPRAY) NS PRN (05:37)
--- NOTE | 2017-04-08 09:16 | PCM.HP ---
H&P History of Present Illness - General Date of Service: 04/08/17 Admit Problem/Dx: Admission Diagnosis/Problem Admission Diagnosis/Problem Confusional state Source of Information: Patient, Significant Other History Limitations: Reports: No Limitations - History of Present Illness Initial Comments - Free Text/Narative: Is an 81-year-old male patient went home from the hospital for hypertensive crisis yesterday. He also has gastritis and esophagitis. He was having some coordination problems so we had PT see him and they felt he was safe to go home. Last night apparently his is getting up every hour to the bathroom because she was afraid of incontinence. And he was very confused and was not able to speak. He also was speaking gibberish and then fell. He is brought to the ER and admitted he doesn't confusion. His any mental status exam was normal. This morning he states he feels fine. He has no chest pain, cough, dysuria, pyuria, hematuria, diarrhea. He had MRI of the brain yesterday. Epigastric Pain Score (Numeric/FACES): 2 - Related Data Allergies/Adverse Reactions: Allergies Allergy/AdvReac Type Severity Reaction Status Date / Time indomethacin [From Indocin] AdvReac Mild Nausea Verified 04/08/17 04:49 Home Medications: Home Meds Allopurinol [Zyloprim] 100 mg PO DAILY 12/07/16 [History] Glimepiride 2 mg PO DAILY 12/07/16 [History] Simvastatin [Zocor] 40 mg PO BEDTIME 12/07/16 [History] Pantoprazole Sodium [Protonix] 40 mg PO DAILY 03/09/17 [History] Acetaminophen [Tylenol Extra Strength] 1,000 mg PO Q6HR PRN 03/21/17 [History] Carboxymethylcellulos/Glycerin [Refresh Optive] 1 drop EYEBOTH ASDIRECTED PRN [History] Cholecalciferol (Vitamin D3) [Vitamin D3] 1,000 unit PO DAILY 03/21/17 [History] Fluticasone Propionate [Flonase] 1 spray NS DAILY PRN 03/21/17 [History] Multivitamin with Minerals [Multiple Vitamin] 1 tab PO DAILY 03/21/17 [History] Sucralfate 1 gm PO QID 04/03/17 [History] Lisinopril 40 mg PO DAILY 3 Days #30 tablet MDD for 3 days 04/07/17 [Rx] amLODIPine [Norvasc] 5 mg PO DAILY #30 tablet 04/07/17 [Rx] Past Medical History HEENT History: Reports: Cataract, Epistaxis, Hard of Hearing, Impaired Vision Cardiovascular History: Reports: Afib, Angina, Hypertension, Other (See Below) Other Cardiovascular History: currently in NSR with frequent PACs Respiratory History: Reports: SOB Gastrointestinal History: Reports: GERD, Other (See Below) Other Gastrointestinal History: recently dx with esophagitis and gastritis and on medication for Genitourinary History: Reports: Other (See Below) Other Genitourinary History: 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 Musculoskeletal History: Reports: Arthritis Neurological History: Reports: None Psychiatric History: Reports: None, Other (See Below) Other Psychiatric History: recent bouts of confusion, patient admits to confusion Endocrine/Metabolic History: Reports: Diabetes, Type II Hematologic History: Reports: Blood Transfusion(s) Immunologic History: Reports: None Oncologic (Cancer) History: Reports: Lymphoma, Prostate Other Oncologic History: skin CA nose Dermatologic History: Reports: None Other Dermatologic History: skin CA - Infectious Disease History Infectious Disease History: Reports: Chicken Pox, Measles, Mumps Other Infectious Disease History: mumps at 33 - Past Surgical History Head Surgeries/Procedures: Reports: None HEENT Surgical History: Reports: Cataract Surgery Cardiovascular Surgical History: Reports: None Respiratory Surgical History: Reports: None GI Surgical History: Reports: Colonoscopy, Hernia, Abdominal Male Surgical History: Reports: None Endocrine Surgical History: Reports: None Neurological Surgical History: Reports: None Musculoskeletal Surgical History: Reports: None Oncologic Surgical History: Reports: Other (See Below) Other Oncologic Surgeries/Procedures: radiated seeds implanted into prostate Dermatological Surgical History: Reports: None Social & Family History - Family History Family Medical History: Noncontributory - Tobacco Use Smoking Status *Q: Never Smoker Second Hand Smoke Exposure: No - Caffeine Use Caffeine Use: Reports: None Other Caffeine Use: decaf - Recreational Drug Use Recreational Drug Use: No H&P Review of Systems - Review of Systems: Review Of Systems: See Below General: Reports: No Symptoms HEENT: Reports: No Symptoms Pulmonary: Reports: No Symptoms Cardiovascular: Reports: No Symptoms Gastrointestinal: Reports: No Symptoms Genitourinary: Reports: No Symptoms Musculoskeletal: Reports: No Symptoms Skin: Reports: No Symptoms Psychiatric: Reports: Confusion Neurological: Reports: Dizziness Hematologic/Lymphatic: Reports: No Symptoms Immunologic: Reports: No Symptoms Exam - Exam Exam: See Below - Vital Signs Vital Signs: Last Vital Signs Temp 97.8 F 04/08/17 05:32 Pulse 76 04/08/17 05:32 Resp 18 04/08/17 05:32 BP 153/80 H 04/08/17 05:32 Pulse Ox 98 04/08/17 05:32 Weight: 175 lb 8 oz - Exam General: Alert, Oriented, Cooperative. No: Mild Distress, Moderate Distress HEENT: PERRLA, Conjunctiva Clear, Hearing Intact, Mucosa Moist & [place], Pupils Reactive, TMs Clear. No: Abnormal Pupils, Rhinitis Neck: Supple, Trachea Midline. No: Carotid Bruit, JVD Lungs: Clear to Auscultation, Normal Respiratory Effort. No: Crackles, Rales, Rhonchi Cardiovascular: Regular Rate, Regular Rhythm, Normal S1, Normal S2. No: Systolic Murmur, Diastolic Murmur GI/Abdominal Exam: Normal Bowel Sounds, Soft, Non-Tender, No Organomegaly, No Distention, No Abnormal Bruit, No Mass Back Exam: Normal Inspection Extremities: Normal Inspection, Normal Range of Motion, Non-Tender, No Pedal Edema Skin: Warm, Dry, Intact Neurological: Cranial Nerves Intact, Reflexes Equal Bilateral, Strength Equal Bilateral, Normal Gait, Normal Speech, Normal Tone Neuro Extensive - Mental Status: Alert, Oriented x3, Normal Mood/Affect, Normal Cognition, Memory Intact Neuro Extensive - Motor, Sensory, Reflexes: Normal Gait Psychiatric: Alert, Normal Affect, Normal Mood - Patient Data Lab Results Last 24 hrs: Laboratory Results - last 24 hr 04/08/17 Range/Units 06:54 POC Glucose 156 H (80-116) mg/dL Result Diagrams: 04/08/17 03:30 04/08/17 03:30 *Q Meaningful Use (ADM) - VTE *Q VTE Criteria *Q: - Stroke *Q Stroke Criteria *Q: - AMI *Q AMI Criteria *Q: - Problem List (1) Palliative care status SNOMED Code(s): 281990350 ICD Code: Z51.5 - ENCOUNTER FOR PALLIATIVE CARE Status: Acute Current Visit: Yes (2) Confusional state SNOMED Code(s): 266134806 ICD Code: F44.89 - OTHER DISSOCIATIVE AND CONVERSION DISORDERS Status: Acute Current Visit: Yes Problem Details: Re admit to observation. Patient and spouse in need of neuropsychological assessment and home health care social worker. (3) Esophagitis SNOMED Code(s): 79170063 ICD Code: K20.9 - ESOPHAGITIS, UNSPECIFIED Status: Acute Current Visit: No (4) Gastritis SNOMED Code(s): 3508470 ICD Code: K29.70 - GASTRITIS, UNSPECIFIED, WITHOUT BLEEDING Status: Acute Current Visit: No Qualifiers: Gastritis type: unspecified gastritis Chronicity: unspecified Gastritis bleeding: without bleeding Qualified Code(s): K29.70 - Gastritis, unspecified , without bleeding (5) Hypertension SNOMED Code(s): 24607499 ICD Code: I10 - ESSENTIAL (PRIMARY) HYPERTENSION Status: Acute Current Visit: No (6) Hyponatremia SNOMED Code(s): 72062752 ICD Code: E87.1 - HYPO-OSMOLALITY AND HYPONATREMIA Status: Acute Current Visit: No (7) Renal insufficiency SNOMED Code(s): 177986577 ICD Code: N28.9 - DISORDER OF KIDNEY AND URETER, UNSPECIFIED Status: Acute Current Visit: No Problem List Initiated/Reviewed/Updated: Yes Orders Last 24hrs: Active Orders 24 hr Category Date Time Status Patient Status [ADT] Routine ADT 04/08/17 09:10 Ordered Notify Provider Vital Signs [RC] ASDIRECTED Care 04/08/17 05:32 Active Up With Assistance [RC] ASDIRECTED Care 04/08/17 05:32 Active Vital Signs [RC] 08,16,00 Care 04/08/17 05:32 Active Consult to Laboratory Phlebotomist [CONS] Routine Cons 04/08/17 05:32 Active Regular Diet [DIET] Diet 04/08/17 Breakfast Active CV Carotid Duplex Comp [US] Routine Exams 04/08/17 09:10 Ordered CXR [Chest 2V] [CR] Routine Exams 04/08/17 09:09 Ordered Allopurinol [Zyloprim] Med 04/08/17 09:00 Active 100 mg PO DAILY Carboxymethylcellulos/Glycerin [Refresh Optive] Med 04/08/17 05:37 Pending 1 drop EYEBOTH ASDIRECTED PRN Cholecalciferol (Vitamin D3) [Vitamin D3] Med 04/08/17 09:00 Active 1,000 units PO DAILY Fluticasone Propionate [Flonase] Med 04/08/17 05:37 Ordered 1 spray NS DAILY PRN Glimepiride [Amaryl] Med 04/08/17 09:00 Active 2 mg PO DAILY Lisinopril [Prinivil] Med 04/08/17 09:00 Active 40 mg PO DAILY Multivitamins [Tab-A-Lyric] Med 04/08/17 09:00 Active 1 tab PO DAILY Pantoprazole [ProTONIX] Med 04/08/17 07:30 Active 40 mg PO ACBREAKFAST Simvastatin [Zocor] Med 04/08/17 21:00 Pending 40 mg PO BEDTIME Sucralfate [Carafate] Med 04/08/17 09:00 Active 1 gm PO QID amLODIPine [Norvasc] Med 04/08/17 09:00 Active 5 mg PO DAILY Code Status [Resuscitation Status] Routine Resus Stat 04/08/17 06:39 Ordered Medication Orders Allopurinol (Zyloprim) 100 mg PO DAILY SUDHIR Amlodipine Besylate (Norvasc) 5 mg PO DAILY SUDHIR Cholecalciferol (Vitamin D3) 1,000 units PO DAILY SUDHIR Glimepiride (Amaryl) 2 mg PO DAILY SUDHIR Lisinopril (Prinivil) 40 mg PO DAILY SUDHIR Multivitamins/Minerals/Vitamin C (Tab-A-Lyric) 1 tab PO DAILY SUDHIR Non-Formulary Medication (Carboxymethylcellulos/Glycerin [Refresh Optive]) 1 drop EYEBOTH ASDIRECTED PRN PRN Reason: Dry Eyes Non-Formulary Medication (Fluticasone Propionate [Flonase]) 1 spray NS DAILY PRN PRN Reason: phlegm Pantoprazole Sodium (Protonix) 40 mg PO ACBREAKFAST SUDHIR Simvastatin (Zocor) 40 mg PO BEDTIME SUDHIR Sucralfate (Carafate) 1 gm PO QID SUDHIR Assessment/Plan Comment:: 1. Admit for observation for his confusion. 2. Social service to see. 3. Will check carotid Doppler and chest x-ray to see if there is any underlying infection or stenosis. 4. Patient wants to to be a full code. 5. Regular diabetes diet. 6. I was able to track down his MRI report which shows no acute changes. 7. UA done and his last admission was normal.
[2017-04-08] MEDS ORDERED: Acetaminophen 325 MG Tab PO PRN (12:31)
[2017-04-08] MEDS: Pantoprazole 40 MG Tab.CR *PTOM PO SCH (12:41)
[2017-04-08] MEDS: GLIMEPIRIDE 2 MG PO SCH (12:42)
[2017-04-08] MEDS: Sucralfate 1 GM Tab PO SCH ×4 (12:43→21:36)
[2017-04-08] MEDS: Lisinopril 40 MG Tab *PTOM PO SCH ×2 (12:45→21:19)
[2017-04-08] MEDS: amLODIPine 5 MG Tab *PTOM PO SCH (12:45)
[2017-04-08] MEDS: Multivitamin Tab PO SCH (12:46)
[2017-04-08] MEDS: Cholecalciferol (Vitamin D3) 1,000 Unit Tab PO SCH (12:46)
[2017-04-08] MEDS ORDERED: amLODIPine 5 MG Tab PO ONE (19:42)
[2017-04-08] MEDS ORDERED: amLODIPine 5 MG Tab *PTOM PO ONE (20:00)
[2017-04-08] MEDS ORDERED: Simvastatin 40 MG Tab PO SCH (21:00)
[2017-04-08] MEDS ORDERED: Lisinopril 10 MG Tab PO ONE (21:04)
[2017-04-08] MEDS ORDERED: Lisinopril 40 MG Tab *PTOM PO ONE (21:15)
[2017-04-09] MEDS ORDERED: Metoprolol Tartrate 25 MG Tab PO ONE (00:40)
[2017-04-09] MEDS: Sucralfate 1 GM Tab PO SCH ×2 (08:06→13:50)
[2017-04-09] MEDS: Pantoprazole 40 MG Tab.CR *PTOM PO SCH (08:06)
[2017-04-09] MEDS: GLIMEPIRIDE 2 MG PO SCH (08:06)
[2017-04-09] MEDS: Cholecalciferol (Vitamin D3) 1,000 Unit Tab PO SCH (08:07)
[2017-04-09] MEDS: Lisinopril 40 MG Tab *PTOM PO SCH (08:07)
[2017-04-09] MEDS: amLODIPine 5 MG Tab *PTOM PO SCH (08:07)
[2017-04-09] MEDS: Multivitamin Tab PO SCH (08:07)
[2017-04-09 11:17] VITALS: BP 153/88
--- NOTE | 2017-04-09 12:22 | PCM.PN ---
- General Info Date of Service: 04/09/17 Admission Dx/Problem (Free Text): Patient states he's had a little confusion at night. Today he feels better. No chest pain, shortness of breath or leg swelling. His friends that are with him today states that he's been given up 7 times a night to the bathroom and taking care of his and being the primary caregiver because she has dementia. - Patient Data Vitals - Most Recent: Last Vital Signs Temp 98 F 04/09/17 11:16 Pulse 55 L 04/09/17 11:16 Resp 20 04/09/17 11:16 BP 153/88 H 04/09/17 11:16 Pulse Ox 98 04/09/17 11:16 Weight - Most Recent: 175 lb 8 oz Lab Results Last 24 Hours: Laboratory Results - last 24 hr 04/09/17 04/09/17 Range/Units 07:25 07:25 WBC 6.6 (4.5-12.0) X10-3/uL RBC 3.45 L (4.30-5.75) x10(6)uL Hgb 12.3 (11.5-15.5) g/dL Hct 34.7 (30.0-51.3) % MCV 100.7 H (80-96) fL MCH 35.6 H (27.7-33.6) pg MCHC 35.4 (32.2-35.4) g/dL RDW 12.6 (11.5-15.5) % Plt Count 201 (125-369) X10(3)uL MPV 8.4 (7.4-10.4) fL Neut % (Auto) 70.3 (46-82) % Lymph % (Auto) 13.9 (13-37) % [place] % (Auto) 13.3 H (4-12) % Eos % (Auto) 2 (1.0-5.0) % Baso % (Auto) 0 (0-2) % Neut # (Auto) 4.7 (1.6-8.3) # Lymph # (Auto) 0.9 (0.6-5.0) # [place] # (Auto) 0.9 (0.0-1.3) # Eos # (Auto) 0.1 (0.0-0.8) # Baso # (Auto) 0.0 (0.0-0.2) # Sodium 132 L (135-145) mmol/L Potassium 3.9 (3.5-5.3) mmol/L Chloride 100 (100-110) mmol/L Carbon Dioxide 26 (21-32) mmol/L BUN 21 H (7-18) mg/dL Creatinine 1.7 H (0.70-1.30) mg/dL Est Cr Clr Drug Dosing 30.78 mL/min Estimated GFR (MDRD) 39 L (>60) BUN/Creatinine Ratio 12.4 (9-20) Glucose 171 H (80-116) mg/dL Calcium 9.3 (8.6-10.2) mg/dL Med Orders - Current: Current Medications Acetaminophen (Tylenol) 650 mg PO Q4H PRN PRN Reason: Pain Last Admin: 04/08/17 15:03 Dose: 650 mg Allopurinol (Zyloprim) 100 mg PO DAILY [facility] Last Admin: 04/09/17 08:07 Dose: 100 mg Amlodipine Besylate (Norvasc) 5 mg PO DAILY [facility] Last Admin: 04/09/17 08:07 Dose: 5 mg Cholecalciferol (Vitamin D3) 1,000 units PO DAILY [facility] Last Admin: 04/09/17 08:07 Dose: 1,000 units Glimepiride (Amaryl) 2 mg PO DAILY [facility] Last Admin: 04/09/17 08:06 Dose: 2 mg Lisinopril (Prinivil) 40 mg PO DAILY [facility] Last Admin: 04/09/17 08:07 Dose: 40 mg Multivitamins/Minerals/Vitamin C (Tab-A-Lyric) 1 tab PO DAILY [facility] Last Admin: 04/09/17 08:07 Dose: Not Given Non-Formulary Medication (Carboxymethylcellulos/Glycerin [Refresh Optive]) 1 drop EYEBOTH ASDIRECTED PRN PRN Reason: Dry Eyes Non-Formulary Medication (Fluticasone Propionate [Flonase]) 1 spray NS DAILY PRN PRN Reason: phlegm Pantoprazole Sodium (Protonix) 40 mg PO ACBREAKFAST [facility] Last Admin: 04/09/17 08:06 Dose: 40 mg Simvastatin (Zocor) 40 mg PO BEDTIME [facility] Last Admin: 04/08/17 21:37 Dose: 40 mg Sucralfate (Carafate) 1 gm PO QID [facility] Last Admin: 04/09/17 08:06 Dose: Not Given Discontinued Medications Amlodipine Besylate (Norvasc) 5 mg PO ONETIME ONE Stop: 04/08/17 19:43 Amlodipine Besylate (Norvasc) 5 mg PO ONETIME ONE Stop: 04/08/17 20:01 Last Admin: 04/08/17 20:00 Dose: 5 mg Lisinopril (Prinivil) 40 mg PO ONETIME ONE Stop: 04/08/17 21:16 Last Admin: 04/08/17 21:37 Dose: Not Given Metoprolol Tartrate (Lopressor) 25 mg PO ONETIME ONE Stop: 04/09/17 00:41 Last Admin: 04/09/17 00:51 Dose: 25 mg - Exam General: Alert, Oriented, Severe Distress Lungs: Normal Respiratory Effort Cardiovascular: Regular Rhythm - Problem List & Annotations (1) Palliative care status SNOMED Code(s): 258060081 Code(s): Z51.5 - ENCOUNTER FOR PALLIATIVE CARE Status: Acute Current Visit: Yes (2) Confusional state SNOMED Code(s): 667261349 Code(s): F44.89 - OTHER DISSOCIATIVE AND CONVERSION DISORDERS Status: Acute Current Visit: Yes Annotation/Comment:: Re admit to observation. Patient and spouse in need of neuropsychological assessment and elementary school social worker. (3) Esophagitis SNOMED Code(s): 60919075 Code(s): K20.9 - ESOPHAGITIS, UNSPECIFIED Status: Acute Current Visit: No (4) Gastritis SNOMED Code(s): 1849974 Code(s): K29.70 - GASTRITIS, UNSPECIFIED, WITHOUT BLEEDING Status: Acute Current Visit: No Qualifiers: Gastritis type: unspecified gastritis Chronicity: unspecified Gastritis bleeding: without bleeding Qualified Code(s): K29.70 - Gastritis, unspecified , without bleeding (5) Hypertension SNOMED Code(s): 62895756 Code(s): I10 - ESSENTIAL (PRIMARY) HYPERTENSION Status: Acute Current Visit: No (6) Hyponatremia SNOMED Code(s): 69205416 Code(s): E87.1 - HYPO-OSMOLALITY AND HYPONATREMIA Status: Acute Current Visit: No (7) Renal insufficiency SNOMED Code(s): 770950764 Code(s): N28.9 - DISORDER OF KIDNEY AND URETER, UNSPECIFIED Status: Acute Current Visit: No - Problem List Review Problem List Initiated/Reviewed/Updated: Yes - My Orders Last 24 Hours: My Active Orders 04/08/17 12:31 Acetaminophen [Tylenol] 650 mg PO Q4H PRN 04/08/17 23:15 CXR [Chest 2V] [CR] Routine 04/09/17 06:00 CV Carotid Duplex Comp [US] Routine - Plan Plan:: 1. Discharge to home on lisinopril 20 mg a day and Norvasc 10 mg a day. 2. I will have his primary provider check and do his prostate. He does not have a UTI here. 3. Home health will will be consult for home evaluation and see how things are going at home. He also pursue assisted living. 4. I talked to the friends about going over there and make sure it is okay in the mid term.
--- NOTE | 2017-04-09 12:26 | PCM.DCSUM1 ---
Discharge Summary - Hospital Course Free Text/Narrative:: Hospital course-patient did well. Has some confusion. He initially was seen for physical therapy before he went home and they felt he was stable to go home. account services analyst saw him and felt he could go home with home health and then the patient and his would transition assisted living.. He had no systemic symptoms while he was here. His MRI was done which read as normal. Carotid Dopplers are pending. Chest x-rays negative. He continues to have some chronic renal failure that has not changed. He did have some friends over here that says he urinates 7 times a night and takes care of his and does all the cooking and cleaning. That may contribute to some of the confusion. Otherwise I don't have an explanation other than maybe medications. The medications he is on are not typical for causing confusion. I did not pursue his urination while he was here because I found out on the last day. I will have him follow-up with his primary provider and I will discuss this with her. Brief History: Is an 81-year-old male patient went home from the hospital for hypertensive crisis yesterday. He also has gastritis and esophagitis. He was having some coordination problems so we had PT see him and they felt he was safe to go home. Last night apparently his is getting up every hour to the bathroom because she was afraid of incontinence. And he was very confused and was not able to speak. He also was speaking gibberish and then fell. He is brought to the ER and admitted he doesn't confusion. His any mental status exam was normal. This morning he states he feels fine. He has no chest pain, cough, dysuria, pyuria, hematuria, diarrhea. He had MRI of the brain yesterday - Discharge Data Discharge Date: 04/09/17 Discharge Disposition: Home, W Home Health Agency 06 Condition: Good - Discharge Diagnosis/Problem(s) (1) Palliative care status SNOMED Code(s): 845075086 ICD Code: Z51.5 - ENCOUNTER FOR PALLIATIVE CARE Status: Acute Current Visit: Yes (2) Confusional state SNOMED Code(s): 877150910 ICD Code: F44.89 - OTHER DISSOCIATIVE AND CONVERSION DISORDERS Status: Acute Current Visit: Yes Problem Details: Re admit to observation. Patient and spouse in need of neuropsychological assessment and social welfare administrator. (3) Esophagitis SNOMED Code(s): 15541328 ICD Code: K20.9 - ESOPHAGITIS, UNSPECIFIED Status: Acute Current Visit: No (4) Gastritis SNOMED Code(s): 3101863 ICD Code: K29.70 - GASTRITIS, UNSPECIFIED, WITHOUT BLEEDING Status: Acute Current Visit: No Qualifiers: Gastritis type: unspecified gastritis Chronicity: unspecified Gastritis bleeding: without bleeding Qualified Code(s): K29.70 - Gastritis, unspecified , without bleeding (5) Hypertension SNOMED Code(s): 35081723 ICD Code: I10 - ESSENTIAL (PRIMARY) HYPERTENSION Status: Acute Current Visit: No (6) Hyponatremia SNOMED Code(s): 25538335 ICD Code: E87.1 - HYPO-OSMOLALITY AND HYPONATREMIA Status: Acute Current Visit: No (7) Renal insufficiency SNOMED Code(s): 921856208 ICD Code: N28.9 - DISORDER OF KIDNEY AND URETER, UNSPECIFIED Status: Acute Current Visit: No - Patient Summary/Data Consults: Consultations 04/08/17 05:32 Consult to Linoleum Printer [CONS] Routine Comment: Physician Instructions: - Patient Instructions Diet: Regular Diet as Tolerated Activity: As Tolerated Driving: Do Not Drive Showering/Bathing: May Shower Other/Special Instructions: 1. Recheck with Luli Lester in 2 days. 2. Home health for medical management, home safety, education. - Discharge Plan Prescriptions/Med Rec: amLODIPine [Norvasc] 10 mg PO DAILY #30 tablet Lisinopril 20 mg PO DAILY 3 Days #30 tablet MDD for 3 days Home Medications: Home Meds Allopurinol [Zyloprim] 100 mg PO DAILY 12/07/16 [History] Glimepiride 2 mg PO DAILY 12/07/16 [History] Simvastatin [Zocor] 40 mg PO BEDTIME 12/07/16 [History] Pantoprazole Sodium [Protonix] 40 mg PO DAILY 03/09/17 [History] Acetaminophen [Tylenol Extra Strength] 1,000 mg PO Q6HR PRN 03/21/17 [History] Carboxymethylcellulos/Glycerin [Refresh Optive] 1 drop EYEBOTH ASDIRECTED PRN [History] Cholecalciferol (Vitamin D3) [Vitamin D3] 1,000 unit PO DAILY 03/21/17 [History] Fluticasone Propionate [Flonase] 1 spray NS DAILY PRN 03/21/17 [History] Multivitamin with Minerals [Multiple Vitamin] 1 tab PO DAILY 03/21/17 [History] Sucralfate 1 gm PO QID 04/03/17 [History] Lisinopril 20 mg PO DAILY 3 Days #30 tablet MDD for 3 days 04/09/17 [Rx] amLODIPine [Norvasc] 10 mg PO DAILY #30 tablet 04/09/17 [Rx] Forms: ED Department Discharge Referrals: Luli Lester PA [Primary Care Provider] - - Discharge Summary/Plan Comment DC Time >30 min.: No - Patient Data Vitals - Most Recent: Last Vital Signs Temp 98 F 04/09/17 11:16 Pulse 55 L 04/09/17 11:16 Resp 20 04/09/17 11:16 BP 153/88 H 04/09/17 11:16 Pulse Ox 98 04/09/17 11:16 Weight - Most Recent: 175 lb 8 oz Lab Results - Last 24 hrs: Laboratory Results - last 24 hr 04/09/17 04/09/17 Range/Units 07:25 07:25 WBC 6.6 (4.5-12.0) X10-3/uL RBC 3.45 L (4.30-5.75) x10(6)uL Hgb 12.3 (11.5-15.5) g/dL Hct 34.7 (30.0-51.3) % MCV 100.7 H (80-96) fL MCH 35.6 H (27.7-33.6) pg MCHC 35.4 (32.2-35.4) g/dL RDW 12.6 (11.5-15.5) % Plt Count 201 (125-369) X10(3)uL MPV 8.4 (7.4-10.4) fL Neut % (Auto) 70.3 (46-82) % Lymph % (Auto) 13.9 (13-37) % [place] % (Auto) 13.3 H (4-12) % Eos % (Auto) 2 (1.0-5.0) % Baso % (Auto) 0 (0-2) % Neut # (Auto) 4.7 (1.6-8.3) # Lymph # (Auto) 0.9 (0.6-5.0) # [place] # (Auto) 0.9 (0.0-1.3) # Eos # (Auto) 0.1 (0.0-0.8) # Baso # (Auto) 0.0 (0.0-0.2) # Sodium 132 L (135-145) mmol/L Potassium 3.9 (3.5-5.3) mmol/L Chloride 100 (100-110) mmol/L Carbon Dioxide 26 (21-32) mmol/L BUN 21 H (7-18) mg/dL Creatinine 1.7 H (0.70-1.30) mg/dL Est Cr Clr Drug Dosing 30.78 mL/min Estimated GFR (MDRD) 39 L (>60) BUN/Creatinine Ratio 12.4 (9-20) Glucose 171 H (80-116) mg/dL Calcium 9.3 (8.6-10.2) mg/dL Med Orders - Current: Current Medications Acetaminophen (Tylenol) 650 mg PO Q4H PRN PRN Reason: Pain Last Admin: 04/08/17 15:03 Dose: 650 mg Allopurinol (Zyloprim) 100 mg PO DAILY [facility] Last Admin: 04/09/17 08:07 Dose: 100 mg Amlodipine Besylate (Norvasc) 5 mg PO DAILY [facility] Last Admin: 04/09/17 08:07 Dose: 5 mg Cholecalciferol (Vitamin D3) 1,000 units PO DAILY [facility] Last Admin: 04/09/17 08:07 Dose: 1,000 units Glimepiride (Amaryl) 2 mg PO DAILY [facility] Last Admin: 04/09/17 08:06 Dose: 2 mg Lisinopril (Prinivil) 40 mg PO DAILY [facility] Last Admin: 04/09/17 08:07 Dose: 40 mg Multivitamins/Minerals/Vitamin C (Tab-A-Lyric) 1 tab PO DAILY [facility] Last Admin: 04/09/17 08:07 Dose: Not Given Non-Formulary Medication (Carboxymethylcellulos/Glycerin [Refresh Optive]) 1 drop EYEBOTH ASDIRECTED PRN PRN Reason: Dry Eyes Non-Formulary Medication (Fluticasone Propionate [Flonase]) 1 spray NS DAILY PRN PRN Reason: phlegm Pantoprazole Sodium (Protonix) 40 mg PO ACBREAKFAST [facility] Last Admin: 04/09/17 08:06 Dose: 40 mg Simvastatin (Zocor) 40 mg PO BEDTIME [facility] Last Admin: 04/08/17 21:37 Dose: 40 mg Sucralfate (Carafate) 1 gm PO QID [facility] Last Admin: 04/09/17 08:06 Dose: Not Given Discontinued Medications Amlodipine Besylate (Norvasc) 5 mg PO ONETIME ONE Stop: 04/08/17 19:43 Amlodipine Besylate (Norvasc) 5 mg PO ONETIME ONE Stop: 04/08/17 20:01 Last Admin: 04/08/17 20:00 Dose: 5 mg Lisinopril (Prinivil) 40 mg PO ONETIME ONE Stop: 04/08/17 21:16 Last Admin: 04/08/17 21:37 Dose: Not Given Metoprolol Tartrate (Lopressor) 25 mg PO ONETIME ONE Stop: 04/09/17 00:41 Last Admin: 04/09/17 00:51 Dose: 25 mg *Q Meaningful Use (DIS) - VTE *Q VTE Criteria *Q: - Stroke *Q Stroke Criteria *Q: - AMI *Q AMI Criteria *Q:
== END 2017-04-09 14:54 | disposition home health service (06) ==
LOC: FB.ED 02:31 → FB.MS 05:17
PROVIDERS: ADMIT Family Medicine; ATTEND Family Medicine
DX: F44.89 Other dissociative and conversion disorders (principal); I12.9 Hypertensive chronic kidney disease with stage 1 through stage 4 chronic kidney disease, or unspecified chronic kidney disease; N18.9 Chronic kidney disease, unspecified; K20.9 Esophagitis, unspecified; K29.70 Gastritis, unspecified, without bleeding; E87.1 Hypo-osmolality and hyponatremia; H26.9 Unspecified cataract; I48.91 Unspecified atrial fibrillation; K21.9 Gastro-esophageal reflux disease without esophagitis; M19.90 Unspecified osteoarthritis, unspecified site; E11.22 Type 2 diabetes mellitus with diabetic chronic kidney disease; Z79.899 Other long term (current) drug therapy; Z88.8 Allergy status to other drugs, medicaments and biological substances; Z85.828 Personal history of other malignant neoplasm of skin
CPT/HCPCS: 36415; 71020; 80048; 82962; 84484; 85025; 85379; 85651; 86140; 93005; 93880; 99285; A9270; G0378; 93010; 99217; 99220; 99284

== ENCOUNTER 2017-04-10 23:13 | Emergency (ER) | payer MEDICARE ==
[2017-04-11] MEDS ORDERED: Morphine 10 MG/ML Syringe IM ONE (00:09)
[2017-04-11] MEDS ORDERED: HYDROmorphone 2 MG/ML SDV IM ONE (00:40)
[2017-04-11 02:59] VITALS: BP 139/77
--- NOTE | 2017-04-11 04:40 | ER ---
DATE SEEN: 04/10/2017 CHIEF COMPLAINT: Back pain. HISTORY OF PRESENT ILLNESS: This is an 81-year-old male complaining of back pain since Friday. He fell while at home, landed on his back pain. The pain is severe. He has tried some Tylenol with no relief. It does not radiate anywhere. He gives a history of recent and multiple falls. PAST MEDICAL HISTORY: Hypertension, gastritis, hyponatremia, and type 2 diabetes. MEDICATIONS: Reviewed. ALLERGIES: Reviewed. PHYSICAL EXAMINATION: GENERAL: He is in a wheelchair. VITAL SIGNS: Blood pressure initially 145/100 and temperature 98. MUSCULOSKELETAL: Low back no obvious deformity. There is tenderness on the paraspinal muscle groups in the lumbar spine. EXTREMITIES: No edema. Straight leg raising test negative. LABORATORY DATA: X-ray, no fracture noted. IMPRESSION: Back pain, musculoskeletal. PLAN: Morphine 10 mg IM. I sent him home on tramadol and Flexeril. He should see RENA Liao on Friday. Return to the ED with worsening symptoms. /[id number] BLANK/DASHA
--- NOTE | 2017-04-14 16:42 | CR ---
INDICATION: Fall, low back pain. 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 Bridging hyperostotic changes are noted most severe in the mid lumbar levels laterally and also anteriorly in upper middle levels and L5-S1, and to a lesser extent in the mid lumbar spine. Fusion is noted at the L4-5 vertebral bodies. Degenerative disk disease is noted at essentially all levels. A definite acute fracture or dislocation was not identified. IMPRESSION: No definite acute fracture or dislocation. Depending upon clinical necessity, additional examination could be obtained if an occult fracture site is suspected clinically, such as MRI or nuclear bone imaging. BECCAD
== END 2017-04-11 01:45 | disposition home or self-care (01) ==
LOC: FB.ED 23:13
DX: M54.5 Low back pain (principal); I10 Essential (primary) hypertension; E11.9 Type 2 diabetes mellitus without complications
CPT/HCPCS: 72110; 96372; 99283; J2270

== ENCOUNTER 2017-04-14 03:58 | Emergency (ER) | payer MEDICARE ==
[2017-04-14] MEDS ORDERED: Alum Hydroxide/Mag Hydroxide 15 ML, Lidocaine 2% 15 ML PO STA ×2 (04:00)
[2017-04-14] MEDS ORDERED: Ondansetron 8 MG Tab.DIS PO ONE (04:00)
--- NOTE | 2017-04-14 04:03 | EDM.PDOC ---
ED HPI GENERAL MEDICAL PROBLEM - General Stated Complaint: ABD PAIN Time Seen by Provider: 04/14/17 03:58 Source of Information: Reports: Patient, Family () History Limitations: Reports: No Limitations - History of Present Illness INITIAL COMMENTS - FREE TEXT/NARRATIVE: 81 y.o.w.m came to the ed due to mid upper abd. pain this am. No C/P, last food intake at 6 pm last night. No N/V/D or dizziness no diaphoresis or any other acute medical issue. BP 146/76 pulse 63 temp 36.7 RR 16 Pulse ox 96 on RA Onset Date: 04/14/17 Onset Time: 01:00 Duration: Hour(s): Location: Reports: Abdomen (epigastric pain) Quality: Reports: Burning, Dull Severity: Mild Improves with: Reports: Rest Worsens with: Reports: Movement Context: Reports: Other (spontaneous 6 hours after eating) MID UPPER ABDOMEN Pain Score (Numeric/FACES): 9 - Related Data Allergies Allergy/AdvReac Type Severity Reaction Status Date / Time indomethacin [From Indocin] AdvReac Mild Nausea Verified 04/14/17 04:01 Home Meds: Home Meds Allopurinol [Zyloprim] 100 mg PO DAILY 12/07/16 [History] Glimepiride 2 mg PO DAILY 12/07/16 [History] Simvastatin [Zocor] 40 mg PO BEDTIME 12/07/16 [History] Pantoprazole Sodium [Protonix] 40 mg PO DAILY 03/09/17 [History] Acetaminophen [Tylenol Extra Strength] 1,000 mg PO Q6HR PRN 03/21/17 [History] Carboxymethylcellulos/Glycerin [Refresh Optive] 1 drop EYEBOTH ASDIRECTED PRN [History] Cholecalciferol (Vitamin D3) [Vitamin D3] 1,000 unit PO DAILY 03/21/17 [History] Fluticasone Propionate [Flonase] 1 spray NS DAILY PRN 03/21/17 [History] Multivitamin with Minerals [Multiple Vitamin] 1 tab PO DAILY 03/21/17 [History] Sucralfate 1 gm PO QID 04/03/17 [History] Lisinopril 20 mg PO DAILY 3 Days #30 tablet MDD for 3 days 04/09/17 [Rx] amLODIPine [Norvasc] 10 mg PO DAILY #30 tablet 04/09/17 [Rx] Past Medical History HEENT History: Reports: Cataract, Epistaxis, Hard of Hearing, Impaired Vision Cardiovascular History: Reports: Afib, Angina, Hypertension, Other (See Below) Other Cardiovascular History: currently in NSR with frequent PACs Respiratory History: Reports: SOB Gastrointestinal History: Reports: Gastritis, GERD, Other (See Below) Other Gastrointestinal History: recently dx with esophagitis and gastritis and on medication for Genitourinary History: Reports: Prostate Disorder, Other (See Below) Other Genitourinary History: 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 Dermatologic History: Reports: Other (See Below) Other Dermatologic History: skin CA - Infectious Disease History Infectious Disease History: Reports: Chicken Pox, Measles, Mumps Other Infectious Disease History: mumps at 33 - Past Surgical History HEENT Surgical History: Reports: Cataract Surgery Other HEENT Surgeries/Procedures: bilat cataract surg. Cardiovascular Surgical History: Reports: None Respiratory Surgical History: Reports: None GI Surgical History: Reports: Colonoscopy, Hernia, Abdominal Male Surgical History: Reports: None Endocrine Surgical History: Reports: None Neurological Surgical History: Reports: None Musculoskeletal Surgical History: Reports: None Oncologic Surgical History: Reports: Other (See Below) Other Oncologic Surgeries/Procedures: radiated seeds implanted into prostate Dermatological Surgical History: Reports: None Social & Family History - Family History Family Medical History: Noncontributory - Tobacco Use Smoking Status *Q: Never Smoker Second Hand Smoke Exposure: No - Caffeine Use Caffeine Use: Reports: Soda, Tea Other Caffeine Use: decaf - Recreational Drug Use Recreational Drug Use: No ED ROS GENERAL - Review of Systems Review Of Systems: See Below Constitutional: Reports: No Symptoms HEENT: Reports: No Symptoms Respiratory: Reports: No Symptoms Cardiovascular: Reports: No Symptoms Endocrine: Reports: No Symptoms GI/Abdominal: Reports: Abdominal Pain (epigastric) : Reports: No Symptoms Musculoskeletal: Reports: No Symptoms Skin: Reports: No Symptoms Neurological: Reports: No Symptoms Psychiatric: Reports: No Symptoms Hematologic/Lymphatic: Reports: No Symptoms Immunologic: Reports: No Symptoms ED EXAM, GI/ABD - Physical Exam Exam: See Below Exam Limited By: No Limitations General Appearance: Alert, WD/WN, Mild Distress Eyes: Bilateral: Normal Appearance Ears: Normal External Exam Nose: Normal Inspection Throat/Mouth: Normal Inspection Head: Atraumatic, Normocephalic Neck: Normal Inspection Respiratory/Chest: No Respiratory Distress Cardiovascular: Normal Peripheral Pulses, Regular Rate, Rhythm, No Edema GI/Abdominal Exam: Tender (epigastric, no pulsating mass) (Male) Exam: No Hernia Rectal (Males) Exam: Deferred Back Exam: Normal Inspection Extremities: Normal Inspection Neurological: Alert, Oriented, CN II-XII Intact Psychiatric: Normal Affect, Normal Mood Skin Exam: Warm, Dry, Intact, Normal Color, No Rash Lymphatic: No Adenopathy Course - Vital Signs Text/Narrative:: 81 y.o.w.m came to the ed due to mid upper abd. pain (02/18) this am. No C/P, last food intake at 6 pm last night. No N/V/D or dizziness no diaphoresis or any other acute medical issue. BP 146/76 pulse 63 temp 36.7 RR 16 Pulse ox 96 on RA PE: WNWD WM with epigastric pain, no pulsating mass Impression: Epigastric pain/gastritis Tx: Zofran, GI cocktail Reexam: Pain improved to /10 and patient requested to be discharged Plan: D/C with instructions Last Recorded V/S: Last Vital Signs Temp 36.4 C 04/14/17 05:00 Pulse 66 04/14/17 05:00 Resp 15 04/14/17 05:00 BP 130/81 04/14/17 05:00 Pulse Ox 95 04/14/17 05:00 - Orders/Labs/Meds Meds: Medications Discontinued Medications Generic Name Dose Route Start Last Admin Trade Name Freq PRN Reason Stop Dose Admin Al Hydroxide/Mg Hydroxide 15 0 ml 04/14/17 04:00 04/14/17 04:15 ml/ Lidocaine HCl 15 ml PO 04/14/17 04:01 15 ml ONETIME STA Administration Ondansetron HCl 8 mg 04/14/17 04:00 04/14/17 04:06 Zofran Odt PO 04/14/17 04:01 8 mg ONETIME ONE Administration Departure - Departure Time of Disposition: 06:00 Disposition: Home, Self-Care 01 Condition: Good Clinical Impression: Gastritis Qualifiers: Gastritis type: unspecified gastritis Chronicity: unspecified Gastritis bleeding: without bleeding Qualified Code(s): K29.70 - Gastritis, unspecified, without bleeding - Discharge Information Instructions: Gastritis, Adult, [id number] Referrals: Luli Lester PA [Primary Care Provider] - Forms: ED Department Discharge Additional Instructions: Take Maalox over the counter 1 tablespoon, 3 hours after dinner before bedtime. See primary care provider as necessary. Come back if acutely worse.
[2017-04-14 05:04] VITALS: BP 130/81
== END 2017-04-14 05:00 | disposition home or self-care (01) ==
LOC: FB.ED 03:58
DX: K29.70 Gastritis, unspecified, without bleeding (principal); I10 Essential (primary) hypertension; K21.9 Gastro-esophageal reflux disease without esophagitis; E11.9 Type 2 diabetes mellitus without complications; Z79.899 Other long term (current) drug therapy; Z79.84 Long term (current) use of oral hypoglycemic drugs; Z88.8 Allergy status to other drugs, medicaments and biological substances
CPT/HCPCS: 99283; A9270

== ENCOUNTER 2017-07-26 14:58 | Observation (INO) | payer MEDICARE ==
[2017-07-26] MEDS ORDERED: Nitroglycerin 0.4 MG Tab.SL SL ONE (15:46)
--- NOTE | 2017-07-26 15:55 | EDM.PDOC ---
ED HPI GENERAL MEDICAL PROBLEM - General Chief Complaint: Cardiovascular Problem Stated Complaint: CHEST PAIN Time Seen by Provider: 07/26/17 15:10 Source of Information: Reports: Patient, Family History Limitations: Reports: No Limitations - History of Present Illness INITIAL COMMENTS - FREE TEXT/NARRATIVE: c/o SSCP pt with pressing SSCP at upper sternum, lasted 1.5h [employer], 5/10 at home, no meds at home, 3/10 on arrival at ED, went away after NTG SL 0-.4 mg x 1, no recurrence no n/v, no f/c/d, no sob has had nasal congestion did have echo in Nov at [facility] in [facility], told he had a "tight valve" denies having had an OH in past, however 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, septal OH, 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 BNP inc'd 123 from 4m ago to 598 today, pt does have new swelling in his ankles for past 2w, not on diuretic BUN/creat 23/2.0 today, up from 16/1.6 from 4m ago trop neg, CRP neg, CxR neg, EKG with no ST changes, no comparison in computer pt's sxs today are suspicious for angina, nonexertional, however did resolve with NTG and pt has known valvular heart disease and CAD, shows evidence of worsening HF pt agrees to be admitted Chest Pain Score (Numeric/FACES): 0 - Related Data Allergies Allergy/AdvReac Type Severity Reaction Status Date / Time indomethacin [From Indocin] AdvReac Mild Nausea Verified 07/26/17 15:14 Home Meds: Home Meds Allopurinol [Zyloprim] 100 mg PO DAILY 12/07/16 [History] Glimepiride 2 mg PO DAILY 12/07/16 [History] Simvastatin [Zocor] 40 mg PO BEDTIME 12/07/16 [History] Pantoprazole Sodium [Protonix] 40 mg PO DAILY 03/09/17 [History] Acetaminophen [Tylenol Extra Strength] 1,000 mg PO Q6HR PRN 03/21/17 [History] Carboxymethylcellulos/Glycerin [Refresh Optive] 1 drop EYEBOTH ASDIRECTED PRN [History] Cholecalciferol (Vitamin D3) [Vitamin D3] 1,000 unit PO DAILY 03/21/17 [History] Fluticasone Propionate [Flonase] 1 spray NS DAILY PRN 03/21/17 [History] Multivitamin with Minerals [Multiple Vitamin] 1 tab PO DAILY 03/21/17 [History] Sucralfate 1 gm PO QID 04/03/17 [History] Lisinopril 20 mg PO DAILY 3 Days #30 tablet MDD for 3 days 04/09/17 [Rx] amLODIPine [Norvasc] 10 mg PO DAILY #30 tablet 04/09/17 [Rx] Past Medical History HEENT History: Reports: Cataract, Epistaxis, Hard of Hearing, Impaired Vision Cardiovascular History: Reports: Afib, Angina, Hypertension, Other (See Below) Other Cardiovascular History: currently in NSR with frequent PACs Respiratory History: Reports: SOB Gastrointestinal History: Reports: Gastritis, GERD, Other (See Below) Other Gastrointestinal History: recently dx with esophagitis and gastritis and on medication for Genitourinary History: Reports: Prostate Disorder, Other (See Below) Other Genitourinary History: 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 Dermatologic History: Reports: Other (See Below) Other Dermatologic History: skin CA - Infectious Disease History Infectious Disease History: Reports: Chicken Pox, Measles, Mumps Other Infectious Disease History: mumps at 33 - Past Surgical History HEENT Surgical History: Reports: Cataract Surgery Other HEENT Surgeries/Procedures: bilat cataract surg. Cardiovascular Surgical History: Reports: None Respiratory Surgical History: Reports: None GI Surgical History: Reports: Colonoscopy, Hernia, Abdominal Male Surgical History: Reports: None Endocrine Surgical History: Reports: None Neurological Surgical History: Reports: None Musculoskeletal Surgical History: Reports: None Oncologic Surgical History: Reports: Other (See Below) Other Oncologic Surgeries/Procedures: radiated seeds implanted into prostate Dermatological Surgical History: Reports: None Social & Family History - Family History Family Medical History: Noncontributory - Tobacco Use Smoking Status *Q: Never Smoker Second Hand Smoke Exposure: No - Caffeine Use Caffeine Use: Reports: Soda, Tea Other Caffeine Use: decaf - Recreational Drug Use Recreational Drug Use: No ED ROS GENERAL - Review of Systems Review Of Systems: See Below Constitutional: Reports: No Symptoms HEENT: Reports: No Symptoms Respiratory: Reports: No Symptoms Cardiovascular: Reports: Chest Pain, Edema Endocrine: Reports: No Symptoms GI/Abdominal: Reports: No Symptoms : Reports: No Symptoms Musculoskeletal: Reports: No Symptoms Skin: Reports: No Symptoms Neurological: Reports: No Symptoms Psychiatric: Reports: No Symptoms Hematologic/Lymphatic: Reports: No Symptoms Immunologic: Reports: No Symptoms ED EXAM, GENERAL - Physical Exam Exam: See Below Exam Limited By: No Limitations General Appearance: Alert, WD/WN, No Apparent Distress, Other (alert, pleasant, poor historian, tends to minimize sxs, poor attention to detail) Ears: Normal External Exam Nose: Normal Inspection, Normal Mucosa, No Blood Throat/Mouth: Normal Inspection, Normal Lips, Normal Teeth, Normal Gums, Normal Oropharynx, Normal Voice, No Airway Compromise Head: Atraumatic, Normocephalic Neck: Normal Inspection, Supple, Non-Tender, Full Range of Motion Respiratory/Chest: No Respiratory Distress, Lungs Clear, Normal Breath Sounds, No Accessory Muscle Use, Chest Non-Tender Cardiovascular: Regular Rate, Rhythm, No Edema, No Gallop, No JVD, No Rub, Other (2/6 RYLEE at LSB, bigeminy on EKG) GI/Abdominal: Normal Bowel Sounds, Soft, Non-Tender, No Organomegaly, No Distention, No Mass Extremities: Normal Range of Motion, Non-Tender, Other (1+ edema to knees, trace edema to groin b/l, symmetric) Neurological: Alert, Oriented, CN II-XII Intact, Normal Cognition, No Motor/ Sensory Deficits Psychiatric: Normal Affect, Normal Mood Skin Exam: Warm, Dry, Intact, Normal Color, No Rash Lymphatic: No Adenopathy Course - Vital Signs Last Recorded V/S: Last Vital Signs Temp 37.0 C 07/26/17 15:10 Pulse 60 07/26/17 16:01 Resp 18 07/26/17 16:01 BP 149/83 H 07/26/17 16:01 Pulse Ox 92 L 07/26/17 16:01 - Orders/Labs/Meds Orders: Active Orders 24 hr Category Date Time Status EKG Documentation Completion [RC] ASDIRECTED Care 07/26/17 15:28 Active EKG Documentation Completion [RC] ASDIRECTED Care 07/26/17 15:45 Ordered Chest 2V [CR] Stat Exams 07/26/17 15:41 Ordered EKG 12 Lead [EK] Routine Ther 07/26/17 15:28 Ordered EKG 12 Lead [EK] Routine Ther 07/26/17 15:41 Ordered Labs: Laboratory Tests 07/26/17 07/26/17 07/26/17 Range/Units 16:40 16:40 16:40 WBC 5.6 (4.5-12.0) X10-3/uL RBC 3.52 L (4.30-5.75) x10(6)uL Hgb 11.6 (11.5-15.5) g/dL Hct 34.5 (30.0-51.3) % MCV 98.0 H (80-96) fL MCH 33.0 (27.7-33.6) pg MCHC 33.6 (32.2-35.4) g/dL RDW 13.9 (11.5-15.5) % Plt Count 171 (125-369) X10(3)uL MPV 8.1 (7.4-10.4) fL Neut % (Auto) 66.6 (46-82) % Lymph % (Auto) 21.1 (13-37) % Bucks % (Auto) 10.4 (4-12) % Eos % (Auto) 2 (1.0-5.0) % Baso % (Auto) 0 (0-2) % Neut # (Auto) 3.7 (1.6-8.3) # Lymph # (Auto) 1.2 (0.6-5.0) # Bucks # (Auto) 0.6 (0.0-1.3) # Eos # (Auto) 0.1 (0.0-0.8) # Baso # (Auto) 0.0 (0.0-0.2) # Sodium 138 (135-145) mmol/L Potassium 4.0 (3.5-5.3) mmol/L Chloride 103 (100-110) mmol/L Carbon Dioxide 26 (21-32) mmol/L BUN 23 H (7-18) mg/dL Creatinine 2.0 H* (0.70-1.30) mg/dL Est Cr Clr Drug Dosing TNP Estimated GFR (MDRD) 32 L (>60) BUN/Creatinine Ratio 11.5 (9-20) Glucose 155 H (80-116) mg/dL Calcium 9.2 (8.6-10.2) mg/dL Total Bilirubin 0.3 (0.1-1.3) mg/dL AST 15 (5-25) IU/L ALT 23 (12-36) U/L Alkaline Phosphatase 119 H (56-112) IU/L Troponin I < 0.017 L (<0.017-0.056) ng/mL C-Reactive Protein < 0.2 L (0.5-0.9) mg/dL NT-Pro-B Natriuret Pep 598 H (<=450) pg/mL Total Protein 6.8 (6.0-8.0) g/dL Albumin 3.4 (3.2-4.6) g/dL Globulin 3.4 g/dL Albumin/Globulin Ratio 1.0 Meds: Medications Discontinued Medications Generic Name Dose Route Start Last Admin Trade Name Freq PRN Reason Stop Dose Admin Nitroglycerin 0.4 mg 07/26/17 15:46 Nitrostat SL 07/26/17 15:47 ONETIME ONE Departure - Departure Time of Disposition: 18:43 Disposition: Admitted As Inpatient 64 Condition: Good Clinical Impression: Chest pain, rule out acute myocardial infarction, Acute exacerbation of congestive heart failure, Peripheral edema, Acute on chronic renal failure Referrals: Luli Lester PA [Primary Care Provider] - Forms: ED Department Discharge - My Orders Last 24 Hours: My Active Orders 07/26/17 15:28 EKG Documentation Completion [RC] ASDIRECTED EKG 12 Lead [EK] Routine 07/26/17 15:41 Chest 2V [CR] Stat EKG 12 Lead [EK] Routine 07/26/17 15:45 EKG Documentation Completion [RC] ASDIRECTED - Assessment/Plan Last 24 Hours: My Active Orders 07/26/17 15:28 EKG Documentation Completion [RC] ASDIRECTED EKG 12 Lead [EK] Routine 07/26/17 15:41 Chest 2V [CR] Stat EKG 12 Lead [EK] Routine 07/26/17 15:45 EKG Documentation Completion [RC] ASDIRECTED
[2017-07-26] MEDS ORDERED: Ondansetron 4 MG/2 ML SDV IV PRN (18:45)
[2017-07-26] MEDS ORDERED: Acetaminophen 325 MG Tab PO PRN (18:45)
[2017-07-26] MEDS ORDERED: Carboxymethylcellulose 0.5%/Glycerin 0.9% Ophth Soln 15 ML Bottle EYEBOTH PRN (19:03)
[2017-07-26] MEDS ORDERED: Fluticasone Propionate Nasal Spray 16 GM Bottle NASBOTH PRN (19:03)
[2017-07-26] MEDS ORDERED: Sucralfate 1 GM Tab PO SCH (21:00)
[2017-07-26] MEDS ORDERED: Simvastatin 40 MG Tab***OWN MED PO SCH (21:00)
[2017-07-27] MEDS ORDERED: Nitroglycerin 0.4 MG Tab.SL SL ONE ×2 (03:20→04:00)
[2017-07-27] MEDS ORDERED: Morphine 2 MG/ML Syringe IVPUSH PRN (04:15)
[2017-07-27] MEDS ORDERED: Aluminum Hydroxide/Magnesium Hydroxide Susp 30 ML Cup PO PRN (07:21)
[2017-07-27] MEDS ORDERED: Pantoprazole 40 MG Tab.CR PO SCH (07:30)
--- NOTE | 2017-07-27 08:16 | PCM.HP ---
H&P History of Present Illness - General Date of Service: 07/27/17 Admit Problem/Dx: Admission Diagnosis/Problem Admission Diagnosis/Problem Chest pain Source of Information: Patient, Old Records, Provider - History of Present Illness Initial Comments - Free Text/Narative: Disposition patient is an 81-year-old male who I'm seeing after admission yesterday for chest pain, rule out myocardial infarction. The patient has a history of chest pain which was secondary to peptic ulcer disease and gastroesophageal reflux. Given extensive workup as recently as 2016 with Lexiscan on 11/27/2016 negative for ischemia and infarct. He had an echo done 11/15 which showed an ejection fraction of 60% with grade 1 diastolic dysfunction. No history of MS but does have diabetes mellitus type 2, hyperlipidemia and hypertension as well as a remote history of atrial fibrillation which never recurred and he is not anticoagulated. The patient has intermittent episodes of left chest pressure radiating into the left axilla which happen frequently and are his typical presentation of gastroesophageal reflux. If he takes Maalox or Pepto-Bismol for symptoms relief. He's had many episodes like this in the past month and typically treats them with OTC medications and does well. Yesterday however, when he was "puttering" around the house he had an episode of a different type of chest pain. This was left sided substernal chest pressure at about a 5/10 with no associated shortness of breath, nausea, vomiting, diaphoresis, dizziness. It lasted for about an hour and a half which is longer than his GI symptoms typically last so he came into the emergency department and the pain went away after a sublingual nitroglycerin. EKG done on presentation to the emergency room showed sinus rhythm with supraventricular bigeminy and Q waves in [address] elevation or depression. No T-wave inversion. Because of the patient's known risk factors for heart disease, the patient was admitted for rule out myocardial infarction. On comparison with previous EKGs, in 10/05/16 patient's EKG was similar to yesterday's as was the EKG and 03/17/2017 in the clinic. Last night the patient had a second episode of chest pain at 3 AM and troponin was ordered early at that time so he's had 2 negative troponins thus far. Again at 7 AM this morning he developed left chest pressure with radiation into the axilla which he said is much more typical for his gastroesophageal reflux disease symptoms. Although he had received a sublingual nitroglycerin it wasn't helpful and we gave him some Maalox and his morning Protonix and this resolved his symptoms. He is currently pain free. Follows with cardiology at [facility]. Past medical history: #1 prostate cancer status post seed radiation with lower urinary tract symptoms and 6-7 episodes of nocturia per night. Follows with urology for this. #2 atrial fibrillation and remote past with no recurrence. Recent echocardiogram showing grade 1 diastolic dysfunction. #3 hypertension #4 hyperlipidemia #5 diabetes small stick to last month with an A1c 7.3% on 02/27/2017. #6 history of peptic ulcer disease/gastroesophageal reflux. #7 chronic kidney disease stage III. #8 gout Social history: The patient lives in [place] with his . He is a nonsmoker, nondrinker. 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 Family history: The patient's mother at 93 of old age complications and organ dysfunction. The patient's father at 64 of liver cancer. No family history of coronary artery disease. Chest Pain Score (Numeric/FACES): 0 - Related Data Allergies/Adverse Reactions: Allergies Allergy/AdvReac Type Severity Reaction Status Date / Time indomethacin [From Indocin] AdvReac Mild Nausea Verified 07/26/17 15:14 Home Medications: Home Meds Allopurinol [Zyloprim] 100 mg PO DAILY 12/07/16 [History] Glimepiride 2 mg PO DAILY 12/07/16 [History] Simvastatin [Zocor] 40 mg PO BEDTIME 12/07/16 [History] Pantoprazole Sodium [Protonix] 40 mg PO DAILY 03/09/17 [History] Acetaminophen [Tylenol Extra Strength] 1,000 mg PO Q6HR PRN 03/21/17 [History] Carboxymethylcellulos/Glycerin [Refresh Optive] 1 drop EYEBOTH ASDIRECTED PRN [History] Cholecalciferol (Vitamin D3) [Vitamin D3] 1,000 unit PO DAILY 03/21/17 [History] Fluticasone Propionate [Flonase] 1 spray NS DAILY PRN 03/21/17 [History] Multivitamin with Minerals [Multiple Vitamin] 1 tab PO DAILY 03/21/17 [History] Aspirin [Ecotrin] 81 mg PO DAILY 07/26/17 [History] Famotidine 20 mg PO DAILY 07/26/17 [History] Finasteride 5 mg PO DAILY 07/26/17 [History] Lisinopril [Prinivil] 20 mg PO BID 07/26/17 [History] Metoprolol Tartrate 12.5 mg PO BID 07/26/17 [History] Tamsulosin [Tamsulosin 24 Hr] 0.8 mg PO BEDTIME 07/26/17 [History] amLODIPine Besylate [Amlodipine Besylate] 10 mg PO DAILY 07/26/17 [History] Past Medical History HEENT History: Reports: Cataract, Epistaxis, Hard of Hearing, Impaired Vision Cardiovascular History: Reports: Afib, Angina, Hypertension, Other (See Below) Other Cardiovascular History: currently in NSR with frequent PACs Respiratory History: Reports: SOB Gastrointestinal History: Reports: Gastritis, GERD, Other (See Below) Other Gastrointestinal History: recently dx with esophagitis and gastritis and on medication for Genitourinary History: Reports: Prostate Disorder, Other (See Below) Other Genitourinary History: 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 Dermatologic History: Reports: Other (See Below) Other Dermatologic History: skin CA - Infectious Disease History Infectious Disease History: Reports: Chicken Pox, Measles, Mumps Other Infectious Disease History: mumps at 33 - Past Surgical History HEENT Surgical History: Reports: Cataract Surgery Other HEENT Surgeries/Procedures: bilat cataract surg. Cardiovascular Surgical History: Reports: None Respiratory Surgical History: Reports: None GI Surgical History: Reports: Colonoscopy, Hernia, Abdominal Male Surgical History: Reports: None Endocrine Surgical History: Reports: None Neurological Surgical History: Reports: None Musculoskeletal Surgical History: Reports: None Oncologic Surgical History: Reports: Other (See Below) Other Oncologic Surgeries/Procedures: radiated seeds implanted into prostate Dermatological Surgical History: Reports: None Social & Family History - Family History Family Medical History: Noncontributory - Tobacco Use Smoking Status *Q: Never Smoker Second Hand Smoke Exposure: No - Caffeine Use Caffeine Use: Reports: Soda, Tea Other Caffeine Use: decaf - Recreational Drug Use Recreational Drug Use: No H&P Review of Systems - Review of Systems: Review Of Systems: See Below General: Reports: No Symptoms HEENT: Reports: Sinus Congestion (chronic over last few weeks.) Pulmonary: Reports: No Symptoms Cardiovascular: Reports: Chest Pain (as per HPI, no associated sxs.), Edema ( over last 6 weeks has noted a little pedal edema which goes away at night. New for him.) Gastrointestinal: Reports: No Symptoms Genitourinary: Reports: Frequency (as per HPI.) Musculoskeletal: Reports: No Symptoms Skin: Reports: No Symptoms Psychiatric: Reports: No Symptoms Neurological: Reports: No Symptoms Hematologic/Lymphatic: Reports: No Symptoms Immunologic: Reports: No Symptoms Exam - Exam Exam: See Below - Vital Signs Vital Signs: Last Vital Signs Temp 36.8 C 07/27/17 02:00 Pulse 72 07/27/17 04:45 Resp 16 07/27/17 04:15 BP 131/60 07/27/17 04:45 Pulse Ox 97 07/27/17 04:15 Weight: 83.461 kg - Exam General: Alert, Oriented, Cooperative HEENT: PERRLA, Mucosa Moist & [place], Posterior Pharynx Clear Neck: Supple Lungs: Clear to Auscultation, Normal Respiratory Effort Cardiovascular: Regular Rate, Normal S1, Normal S2, Irregular Rhythm GI/Abdominal Exam: Normal Bowel Sounds, Soft, Non-Tender Extremities: Normal Inspection, No Pedal Edema Skin: Warm, Dry, Intact Neuro Extensive - Mental Status: Alert, Oriented x3 Psychiatric: Alert, Normal Affect, Normal Mood - Patient Data Lab Results Last 24 hrs: Laboratory Results - last 24 hr 07/27/17 Range/Units 04:20 Troponin I < 0.017 L (<0.017-0.056) ng/mL Result Diagrams: 07/26/17 16:40 07/26/17 16:40 EKG INTERPRETATION EKG Date: 07/27/17 (EKG from 3 AM showed a couple of PVCs. It showed this is ventricular bigeminy pattern with a rate of 81. It showed no ST elevation or depression. No T-wave inversion. There were no changes from the previous EKG and really was very similar to the EKG 03/17/2017 with no significant changes. Q waves in inferior leads were present prior to Isabel scan which showed no evidence of infarction.) *Q Meaningful Use (ADM) - VTE *Q VTE Criteria *Q: - Stroke *Q Stroke Criteria *Q: - AMI *Q AMI Criteria *Q: - Problem List (1) Chest pain, rule out acute myocardial infarction SNOMED Code(s): 28741200 ICD Code: R07.9 - CHEST PAIN, UNSPECIFIED Status: Acute Current Visit: Yes Problem Details: I suspect given the patient's history of pain greater than one hour, negative troponins, and no EKG changes coupled with his history of GERD and response to antacids in treating the pain this morning that this patient is having an atypical chest pain secondary to gastroesophageal reflux. I 'd like to get a third troponin 8 hours after the patient's episode of pain this morning. Discussed with the patient that although this appears to be gastroesophageal reflux, even with negative troponins we've only proven that he does not have muscle tissue damage but not that the pain is not contributed to by heart issues. We can either send him to [place] for further evaluation from the hospital or have him follow up as an outpatient. The patient would prefer outpatient follow-up with his correspondence section supervisor next week to direct any further testing. I think this is very reasonable. I anticipate the patient will be discharged after an third negative troponin at noon. With his recent increase in edema, he may warrant another echocardiogram which was ordered for April by his correspondence section supervisor so he can just get this scheduled. (2) CKD stage 3 due to type 2 diabetes mellitus SNOMED Code(s): 045855233089 ICD Code: E11.22 - TYPE 2 DIABETES MELLITUS W DIABETIC CHRONIC KIDNEY DISEASE ; N18.3 - CHRONIC KIDNEY DISEASE, STAGE 3 (MODERATE) Status: Acute Current Visit: Yes Problem Details: Continue current outpatient medication. Creatinine slightly up today at 2.0. 1.7 his baseline. Avoid renal toxic drugs. (3) Gastritis SNOMED Code(s): 5367879 ICD Code: K29.70 - GASTRITIS, UNSPECIFIED, WITHOUT BLEEDING Status: Acute Current Visit: No Problem Details: The likely etiology of his discomfort. Continue antacids, Protonix daily, and I have asked him to increase his Carafate from once daily in the morning to before every meal and at bedtime. Qualifiers: Gastritis type: unspecified gastritis Chronicity: unspecified Gastritis bleeding: without bleeding Qualified Code(s): K29.70 - Gastritis, unspecified , without bleeding (4) Hypertension SNOMED Code(s): 30426544 ICD Code: I10 - ESSENTIAL (PRIMARY) HYPERTENSION Status: Acute Current Visit: No Problem Details: Marginal control here in the hospital. We will defer medication changes to his primary care provider. (5) Type 2 diabetes mellitus SNOMED Code(s): 47409301 ICD Code: E11.9 - TYPE 2 DIABETES MELLITUS WITHOUT COMPLICATIONS Status: Acute Current Visit: No Problem Details: Adequately controlled as an outpatient. Continue current medication. Problem List Initiated/Reviewed/Updated: Yes Orders Last 24hrs: Active Orders 24 hr Category Date Time Status Admission Status [Patient Status] [ADT] Routine ADT 07/26/17 19:10 Active Telemetry Monitoring [Cardiac Monitoring] [RC] 08,16,00 Care 07/26/17 19:10 Active Allopurinol [Zyloprim] Med 07/27/17 09:00 Active 100 mg PO DAILY Alum Hydroxide/Mag Hydroxide [Mag-Al Susp] Med 07/27/17 07:21 Active 30 ml PO Q6H PRN Aspirin [Halfprin] Med 07/27/17 09:00 Active 81 mg PO DAILY Carboxymethylcellulos/Glycerin [Refresh Optive] Med 07/26/17 19:03 Active 0 ml EYEBOTH ASDIRECTED PRN Cholecalciferol (Vitamin D3) [Vitamin D3] Med 07/27/17 09:00 Active 1,000 units PO DAILY Famotidine [Pepcid] Med 07/27/17 09:00 Active 20 mg PO DAILY Finasteride [Proscar] Med 07/27/17 09:00 Active 5 mg PO DAILY Fluticasone Propionate [Flonase] Med 07/26/17 19:03 Active 0 gm NASBOTH DAILY PRN Furosemide [Lasix] Med 07/27/17 09:00 Active 20 mg PO DAILY Glimepiride [Amaryl] Med 07/27/17 09:00 Active 2 mg PO DAILY Lisinopril [Prinivil] Med 07/27/17 09:00 Active 20 mg PO BID Metoprolol Tartrate [Lopressor] Med 07/26/17 21:15 Active 12.5 mg PO BID Morphine Med 07/27/17 04:15 Active 2 mg IVPUSH Q2H PRN Multivitamins [Tab-A-Lyric] Med 07/27/17 09:00 Active 1 tab PO DAILY Pantoprazole [ProTONIX] Med 07/27/17 07:30 Active 40 mg PO ACBREAKFAST Simvastatin [Zocor] Med 07/26/17 21:00 Active 40 mg PO BEDTIME Tamsulosin [Flomax] Med 07/27/17 21:00 Active 0.8 mg PO BEDTIME amLODIPine [Norvasc] Med 07/27/17 09:00 Active 10 mg PO DAILY EKG 12 Lead [EK] Routine Ther 07/27/17 07:00 Ordered Medication Orders Acetaminophen (Tylenol) 650 mg PO Q4H PRN PRN Reason: Pain (Mild 1-3)/fever Al Hydroxide/Mg Hydroxide (Mag-Al Susp) 30 ml PO Q6H PRN PRN Reason: Other Last Admin: 07/27/17 07:45 Dose: 30 ml Allopurinol (Zyloprim) 100 mg PO DAILY [facility] Amlodipine Besylate (Norvasc) 10 mg PO DAILY [facility] Aspirin (Halfprin) 81 mg PO DAILY [facility] Carboxymethylcellulose (Refresh Optive) 0 ml EYEBOTH ASDIRECTED PRN PRN Reason: Dry Eyes Cholecalciferol (Vitamin D3) 1,000 units PO DAILY [facility] Famotidine (Pepcid) 20 mg PO DAILY [facility] Finasteride (Proscar) 5 mg PO DAILY [facility] Fluticasone Propionate (Flonase) 0 gm NASBOTH DAILY PRN PRN Reason: phlegm Furosemide (Lasix) 20 mg PO DAILY [facility] Glimepiride (Amaryl) 2 mg PO DAILY [facility] Lisinopril (Prinivil) 20 mg PO BID [facility] Metoprolol Tartrate (Lopressor) 12.5 mg PO BID [facility] Last Admin: 07/26/17 22:15 Dose: 12.5 mg Morphine Sulfate (Morphine) 2 mg IVPUSH Q2H PRN PRN Reason: Pain Multivitamins/Minerals/Vitamin C (Tab-A-Lyric) 1 tab PO DAILY [facility] Ondansetron HCl (Zofran) 4 mg IV Q4H PRN PRN Reason: Nausea/Vomiting Pantoprazole Sodium (Protonix) 40 mg PO ACBREAKFAST [facility] Last Admin: 07/27/17 07:27 Dose: 40 mg Simvastatin (Zocor) 40 mg PO BEDTIME [facility] Last Admin: 07/26/17 22:10 Dose: 40 mg Tamsulosin HCl (Flomax) 0.8 mg PO BEDTIME [facility] Assessment/Plan Comment:: Discussed CODE STATUS with the patient on admission. If his heart were to stop beating or he were to start breathing, he would want full heroic efforts to resuscitate him including chest compressions, shocks, intubation. This patient is a full code.
[2017-07-27] MEDS ORDERED: GLIMEPIRIDE 2 MG PO SCH (09:00)
[2017-07-27] MEDS ORDERED: FAMOTIDINE 20 MG PO SCH (09:00)
[2017-07-27] MEDS ORDERED: Furosemide 20 MG Tab PO SCH (09:00)
[2017-07-27] MEDS ORDERED: FINASTERIDE 5 MG PO SCH (09:00)
[2017-07-27] MEDS ORDERED: ALLOPURINOL 100 MG PO SCH (09:00)
[2017-07-27] MEDS ORDERED: Aspirin 81 MG Tab.EC PO SCH (09:00)
[2017-07-27] MEDS ORDERED: AMLODIPINE 10 MG PO SCH (09:00)
[2017-07-27] MEDS ORDERED: amLODIPine 5 MG Tab PO SCH (09:00)
[2017-07-27] MEDS ORDERED: Cholecalciferol (Vitamin D3) 1,000 Unit Tab PO SCH (09:00)
[2017-07-27] MEDS ORDERED: LISINOPRIL 20 MG PO SCH (09:00)
[2017-07-27] MEDS ORDERED: Multivitamin Tab PO SCH (09:00)
[2017-07-27] MEDS ORDERED: Sucralfate 1 GM Tab PO SCH (11:30)
--- NOTE | 2017-07-27 13:10 | PCM.DCSUM1 ---
Discharge Summary - Hospital Course Free Text/Narrative:: Date of admission: 07/26/17 Date of discharge: 07/27/17 Admission diagnosis: Atypical chest pain, rule out myocardial infarction Discharge diagnosis: Gastroesophageal reflux disease. Consults: None Procedures: None History of present illness: The patient is an 81-year-old male with a history of diabetes mellitus type 2, hyperlipidemia, hypertension, atrial fibrillation and the low past with no recurrence, the day of admission had an hour and a half of substernal chest pain. No associated symptoms, does have a long history of Estrace esophageal reflux symptoms but this was different and lasted longer. EKG was abnormal with Q waves in the inferior leads, multiple PVCs, supraventricular bigeminy, and the patient was admitted for rule out myocardial infarction. Initial troponin was negative. Hospital course: Patient had a second episode of chest pain the night of admission and the second troponin was negative, EKG unchanged. He had a third episode of pain the morning of discharge which was treated with Maalox and completely resolved. When reviewing the patient's previous records which had not been available on admission, the patient's EKG was unchanged from October 05, 2016, the patient had had an echo done in November 2016 which showed an ejection fraction of 60% and grade 1 diastolic dysfunction, and had had a Isabel scan on 11/27/16 which showed no ischemia or infarction. Discharge instructions: Patient will be discharged to home. Recommended continuing his current medications including baby aspirin daily. Added Carafate 1 tablet before each meal and at bedtime to help prevent heartburn symptoms. He had a previous echocardiogram order in April which he hadn't had done yet so advised him to call and schedule that. Patient had noted increased swelling in the lower extremities over the last couple of months so recommended following up with his primary care provider for that. I'd like him to call his sludge control attendant and let them know about his recent hospitalization. See primary care provider this week for recheck. Of note blood pressure was marginally controlled in the hospital in the 140s systolic and may need his medications adjusted. - Discharge Data Discharge Date: 07/27/17 Discharge Disposition: Home, Self-Care 01 Condition: Fair - Discharge Diagnosis/Problem(s) (1) Chest pain, rule out acute myocardial infarction SNOMED Code(s): 86444096 ICD Code: R07.9 - CHEST PAIN, UNSPECIFIED Status: Acute Current Visit: Yes Problem Details: Given the patient's history of pain greater than one hour , negative troponins, and no EKG changes coupled with his history of GERD and response to antacids in treating the pain this morning that this patient is having an atypical chest pain secondary to gastroesophageal reflux. Third troponin was negative almost 24 hours after initial episode of pain. Patient will discharge to home, follow-up with his primary care provider and cardiology next week, and I did ask him to call and schedule his echocardiogram which was reordered for last April but he hadn't had. (2) CKD stage 3 due to type 2 diabetes mellitus SNOMED Code(s): 582010380599 ICD Code: E11.22 - TYPE 2 DIABETES MELLITUS W DIABETIC CHRONIC KIDNEY DISEASE ; N18.3 - CHRONIC KIDNEY DISEASE, STAGE 3 (MODERATE) Status: Acute Current Visit: Yes Problem Details: Continue current outpatient medication. (3) Gastritis SNOMED Code(s): 8236744 ICD Code: K29.70 - GASTRITIS, UNSPECIFIED, WITHOUT BLEEDING Status: Acute Current Visit: No Problem Details: The likely etiology of his discomfort. Continue antacids, Protonix daily, and I have asked him to add Carafate before every meal and at bedtime. Qualifiers: Gastritis type: unspecified gastritis Chronicity: unspecified Gastritis bleeding: without bleeding Qualified Code(s): K29.70 - Gastritis, unspecified , without bleeding (4) Hypertension SNOMED Code(s): 57598023 ICD Code: I10 - ESSENTIAL (PRIMARY) HYPERTENSION Status: Acute Current Visit: No Problem Details: Marginal control here in the hospital. We will defer medication changes to his primary care provider. (5) Type 2 diabetes mellitus SNOMED Code(s): 39219112 ICD Code: E11.9 - TYPE 2 DIABETES MELLITUS WITHOUT COMPLICATIONS Status: Acute Current Visit: No Problem Details: Adequately controlled as an outpatient. Continue current medication. - Patient Instructions Diet: Heart Healthy Diet Activity: As Tolerated, No Strenuous Activities (until follow up.) Driving: May Drive Today - Discharge Plan Prescriptions/Med Rec: Sucralfate [Carafate] 1 gm PO QID #120 tablet Home Medications: Home Meds Allopurinol [Zyloprim] 100 mg PO DAILY 12/07/16 [History] Glimepiride 2 mg PO DAILY 12/07/16 [History] Simvastatin [Zocor] 40 mg PO BEDTIME 12/07/16 [History] Pantoprazole Sodium [Protonix] 40 mg PO DAILY 03/09/17 [History] Acetaminophen [Tylenol Extra Strength] 1,000 mg PO Q6HR PRN 03/21/17 [History] Carboxymethylcellulos/Glycerin [Refresh Optive] 1 drop EYEBOTH ASDIRECTED PRN [History] Cholecalciferol (Vitamin D3) [Vitamin D3] 1,000 unit PO DAILY 03/21/17 [History] Fluticasone Propionate [Flonase] 1 spray NS DAILY PRN 03/21/17 [History] Multivitamin with Minerals [Multiple Vitamin] 1 tab PO DAILY 03/21/17 [History] Aspirin [Ecotrin] 81 mg PO DAILY 07/26/17 [History] Famotidine 20 mg PO DAILY 07/26/17 [History] Finasteride 5 mg PO DAILY 07/26/17 [History] Lisinopril [Prinivil] 20 mg PO BID 07/26/17 [History] Metoprolol Tartrate 12.5 mg PO BID 07/26/17 [History] Tamsulosin [Flomax] 0.8 mg PO BEDTIME 07/26/17 [History] amLODIPine Besylate [Amlodipine Besylate] 10 mg PO DAILY 07/26/17 [History] Alum Hydroxide/Mag Hydroxide [Mag-Al] 30 ml PO Q6H PRN cup 07/27/17 [Rx] Sucralfate [Carafate] 1 gm PO QID #120 tablet 07/27/17 [Rx] Forms: ED Department Discharge Referrals: Luli Lester PA [Primary Care Provider] - - Discharge Summary/Plan Comment DC Time >30 min.: Yes (Admission and discharge time on day of discharge was > 30 minutes.) - Patient Data Vitals - Most Recent: Last Vital Signs Temp 36.5 C 07/27/17 11:59 Pulse 52 L 07/27/17 11:59 Resp 18 07/27/17 11:59 BP 147/66 H 07/27/17 11:59 Pulse Ox 94 L 07/27/17 11:59 Weight - Most Recent: 83.461 kg I&O - Last 24 hours: Intake & Output 07/26/17 07/27/1707/27/18 22:59 06:59 14:59 Intake Total 100 Output Total 500 250 700 Balance -500 -250 -600 Lab Results - Last 24 hrs: Laboratory Results - last 24 hr 07/27/17 07/27/17 Range/Units 04:20 12:08 Troponin I < 0.017 L < 0.017 L (<0.017-0.056) ng/mL Med Orders - Current: Current Medications Acetaminophen (Tylenol) 650 mg PO Q4H PRN PRN Reason: Pain (Mild 1-3)/fever Al Hydroxide/Mg Hydroxide (Mag-Al Susp) 30 ml PO Q6H PRN PRN Reason: Other Last Admin: 07/27/17 07:45 Dose: 30 ml Allopurinol (Zyloprim) 100 mg PO DAILY [facility] Last Admin: 07/27/17 08:16 Dose: 100 mg Amlodipine Besylate (Norvasc) 10 mg PO DAILY [facility] Last Admin: 07/27/17 08:13 Dose: 10 mg Aspirin (Halfprin) 81 mg PO DAILY [facility] Last Admin: 07/27/17 08:11 Dose: 81 mg Carboxymethylcellulose (Refresh Optive) 0 ml EYEBOTH ASDIRECTED PRN PRN Reason: Dry Eyes Cholecalciferol (Vitamin D3) 1,000 units PO DAILY [facility] Last Admin: 07/27/17 08:16 Dose: Not Given Famotidine (Pepcid) 20 mg PO DAILY [facility] Last Admin: 07/27/17 08:14 Dose: 20 mg Finasteride (Proscar) 5 mg PO DAILY [facility] Last Admin: 07/27/17 08:15 Dose: 5 mg Fluticasone Propionate (Flonase) 0 gm NASBOTH DAILY PRN PRN Reason: phlegm Furosemide (Lasix) 20 mg PO DAILY [facility] Last Admin: 07/27/17 08:11 Dose: 20 mg Glimepiride (Amaryl) 2 mg PO DAILY [facility] Last Admin: 07/27/17 08:06 Dose: 2 mg Lisinopril (Prinivil) 20 mg PO BID [facility] Last Admin: 07/27/17 08:15 Dose: 20 mg Metoprolol Tartrate (Lopressor) 12.5 mg PO BID [facility] Last Admin: 07/27/17 08:11 Dose: 12.5 mg Morphine Sulfate (Morphine) 2 mg IVPUSH Q2H PRN PRN Reason: Pain Multivitamins/Minerals/Vitamin C (Tab-A-Lyric) 1 tab PO DAILY [facility] Last Admin: 07/27/17 08:15 Dose: Not Given Ondansetron HCl (Zofran) 4 mg IV Q4H PRN PRN Reason: Nausea/Vomiting Pantoprazole Sodium (Protonix) 40 mg PO ACBREAKFAST [facility] Last Admin: 07/27/17 07:27 Dose: 40 mg Simvastatin (Zocor) 40 mg PO BEDTIME [facility] Last Admin: 07/26/17 22:10 Dose: 40 mg Sucralfate (Carafate) 1 gm PO QIDACANDBED [facility] Last Admin: 07/27/17 11:58 Dose: 1 gm Tamsulosin HCl (Flomax) 0.8 mg PO BEDTIME [facility] Discontinued Medications Amlodipine Besylate (Norvasc) 10 mg PO DAILY [facility] Lisinopril (Prinivil) 20 mg PO DAILY [facility] Nitroglycerin (Nitrostat) 0.4 mg SL ONETIME ONE Stop: 07/26/17 15:47 Nitroglycerin (Nitrostat) 0.4 mg SL ONETIME ONE Stop: 07/27/17 03:21 Last Admin: 07/27/17 03:30 Dose: 0.4 mg Nitroglycerin (Nitrostat) 0.4 mg SL ONETIME ONE Stop: 07/27/17 04:01 Last Admin: 07/27/17 04:00 Dose: 0.4 mg Sucralfate (Carafate) 1 gm PO QID [facility] Last Admin: 07/26/17 22:37 Dose: Not Given *Q Meaningful Use (DIS) - VTE *Q VTE Criteria *Q: - Stroke *Q Stroke Criteria *Q: - AMI *Q AMI Criteria *Q:
[2017-07-27 19:03] VITALS: BP 125/82
[2017-07-27] MEDS ORDERED: TAMSULOSIN 0.4 MG PO SCH (21:00)
--- NOTE | 2017-07-28 14:57 | CR ---
INDICATION: Chest pain. CHEST: PA and lateral views of the chest, 07/26/2017, were compared with 2016 and 12/07/2016, again revealing linear metallic density at the left costophrenic angle. Overlying EKG leads are noted. The heart is normal in size transversely. However, on the lateral view, there is suggestion of mild left ventricular enlargement. The aorta is somewhat tortuous with calcification minimally in the arch. A minimal dextroconvex scoliosis of the mid thoracic spine is noted. Somewhat flattened diaphragm leaves, prominent AP diameter, and minimal hyperaeration, as well as interdigitation of the right hemidiaphragm leaf all suggest COPD. An active infiltrate or effusion was not identified. IMPRESSION: 1. No acute process. 2. ASHD with LVE. 3. Probable COPD. 4. Mild scoliosis. MTDD
== END 2017-07-27 13:35 | disposition home or self-care (01) ==
LOC: FB.ED 14:58 → FB.MS 18:48
PROVIDERS: ADMIT Emergency Medicine; ATTEND Family Medicine
DX: K21.9 Gastro-esophageal reflux disease without esophagitis (principal); E78.5 Hyperlipidemia, unspecified; I10 Essential (primary) hypertension; I48.91 Unspecified atrial fibrillation; N18.3 Chronic kidney disease, stage 3 (moderate); E11.22 Type 2 diabetes mellitus with diabetic chronic kidney disease; K29.70 Gastritis, unspecified, without bleeding; M10.9 Gout, unspecified; M19.90 Unspecified osteoarthritis, unspecified site; Z85.828 Personal history of other malignant neoplasm of skin; Z79.899 Other long term (current) drug therapy; Z79.84 Long term (current) use of oral hypoglycemic drugs; Z79.51 Long term (current) use of inhaled steroids; Z79.82 Long term (current) use of aspirin; Z85.46 Personal history of malignant neoplasm of prostate; Z88.8 Allergy status to other drugs, medicaments and biological substances
CPT/HCPCS: 36415; 71046; 80053; 83880; 84484; 85025; 86140; 93005; 99285; A9270; G0378; 99217; 99235

== ENCOUNTER 2017-10-25 18:48 | Emergency (ER) | payer MEDICARE ==
[2017-10-25] MEDS ORDERED: Diatrizoate Meglumine/Diatrizoate Sodium 37% 30 ML Bottle PO SCH (22:45)
[2017-10-26 00:44] VITALS: BP 129/77
--- NOTE | 2017-10-27 11:45 | ER ---
DATE SEEN: 10/25/2017 TIME SEEN: The patient was seen at 1950 hours. HISTORY OF PRESENT ILLNESS: This pleasant 82-year-old man had onset, 3 days ago, of intermittent abdominal pain, 8/10 intensity that goes down to 2/10 in intensity. It is variable. This evening, he experienced pain for 3 hours. In the past, he tried to relieve with antacids and/or Pepto-Bismol, but it did not resolve his discomfort. He was seen in Urgent Care approximately 10/23/2017. He has had diarrhea x2 on 10/21/2017. Pain is primarily subumbilical as a band mid distance between the umbilicus and the symphysis, and this band extends to a good 4-6 inches circumferentially with more pain radiating to the left compared to the right. No history of renal stones in the past. No history of dehydration, alcohol excesses. The patient is a diabetic. He has hypertension, renal insufficiency, esophagitis, gastric polyps, hypertensive urgency, sinus bradycardia, type 2 diabetes, confusions, heart failure, hypertension, stage 3 chronic kidney disease secondary to type 2 diabetes. CURRENT MEDICATIONS: 1. Amlodipine 10 mg daily. 2. Flomax 0.8 mg at bedtime. 3. Carafate 1 g q.i.d. 4. Simvastatin 40 mg at bedtime. 5. Protonix 40 mg daily. 6. Metoprolol tartrate 12.5 mg b.i.d. 7. Lisinopril 20 mg b.i.d. 8. Glimepiride 2 mg daily. 9. Fluticasone propionate (Flonase) one spray p.r.n. each nostril. 10.Finasteride 5 mg daily. 11.Famotidine 20 mg daily. 12.Vitamin D. 13.OptiVite. 14.Refresh drops. 15.Aspirin Ecotrin 81 mg daily. 16.Aluminum hydroxide q.6 hours p.r.n. 17.Allopurinol 100 mg daily. 18.Acetaminophen p.r.n. ALLERGIES: Indomethacin. REVIEW OF SYSTEMS: The patient denies headache. Denies sore throat, fever, chills, cough, shortness of breath, chest pain, irregular heartbeat. He has mild abdominal discomfort. He has band like position from umbilicus to mid distance down to the symphysis. Radiating to the left. Denies back pain. Denies muscle aches. Denies frequency, urgency, dysuria, or urine loss. He has problems with prostatism and prostate cancer, which has resolved. PHYSICAL EXAMINATION: VITAL SIGNS: Blood pressure 118/55, heart rate 56, respirations 17, oxygen saturation 96%, and temperature 36.8 degrees centigrade. The patient's pulse varies between 56 and 42, so he does have intermittent bradycardia. GENERAL: The patient is alert, pleasant fellow, who smiles a lot and enjoys just living. He is supported by his , who is equally reinforcing of his happiness. HEENT: PERRLA intact. Pharynx without abnormality. LUNGS: Clear without rales, rhonchi, or wheezes. HEART: S1, S2. No murmur. No irregular rate or rhythm. ABDOMEN: Soft, mild infraumbilical discomfort. No rebound. Bowel sounds normal with no evidence for bruit. No pulsatile mass or mass in the abdomen. No suprapubic tenderness. He has left lower quadrant abdominal discomfort with guarding. MUSCULOSKELETAL: He has minimal lumbar discomfort and minimal thoracic discomfort, felt to be baseline. Deep tendon reflexes upper and lower extremities symmetrical, 1+, mildly hypoactive. NEUROLOGICAL: Cranial nerves 2 through 12 intact. Slight decreased hearing. Oriented x3. Gait is steady. WORKING DIAGNOSES: Rule out diverticulitis, as has left lower quadrant abdominal discomfort; rule out vascular event, mesenteric ischemia; rule out colitis with significant diarrhea; rule out prostate cancer dissemination, has had three site injection of radioactive prostate seeds and has done quite well. He has kidney dysfunction. Creatinine is up from 2.0 on July 26, 2017 to 3.0 today. Slow deterioration of renal status with BNP of 528, and troponin is 31.7. Urinalysis negative, except a few hyaline casts. ASSESSMENT: 1. Abdominal discomfort secondary to compression deformity T12 that is new. Pain can be reproduced by palpation of T12. 2. Abdominal pain probably secondary to this. 3. Diarrhea x2. Possibly had enteric organism causing diarrhea. 4. Chronic back pain, mild. 5. Stage 3 chronic kidney disease with hyaline casts occasionally. 6. Diabetes, insulin dependent. PLAN: The patient dismissed to follow up with his doctor this week. He will see the orthopedist on Friday or Thursday, and he is to call osrtho paralegal secretary tomorrow to get appointment for further followup. In the meantime, he is not to lift anything. He has 10 tablets of Vicodin 1 q.4-6 hours p.r.n. pain. /[id number] CHRISTIANO/DASHA MARTINES
== END 2017-10-26 00:38 | disposition home or self-care (01) ==
LOC: FB.ED 18:48
DX: R10.32 Left lower quadrant pain (principal); M43.9 Deforming dorsopathy, unspecified; I13.0 Hypertensive heart and chronic kidney disease with heart failure and stage 1 through stage 4 chronic kidney disease, or unspecified chronic kidney disease; I50.9 Heart failure, unspecified; E11.22 Type 2 diabetes mellitus with diabetic chronic kidney disease; N18.3 Chronic kidney disease, stage 3 (moderate); R19.7 Diarrhea, unspecified; M54.5 Low back pain; G89.29 Other chronic pain; Z79.899 Other long term (current) drug therapy; Z79.82 Long term (current) use of aspirin; Z88.8 Allergy status to other drugs, medicaments and biological substances
CPT/HCPCS: 36415; 74176; 80053; 81001; 83605; 85025; 99284; Q9963

== ENCOUNTER 2018-06-20 16:55 | Emergency (ER) | payer MEDICARE ==
--- NOTE | 2018-06-20 17:07 | EDM.PDOC ---
ED HPI GENERAL MEDICAL PROBLEM - General Stated Complaint: CHEST PAIN Time Seen by Provider: 06/20/18 16:55 Source of Information: Reports: Patient, Family History Limitations: Reports: No Limitations - History of Present Illness INITIAL COMMENTS - FREE TEXT/NARRATIVE: 82 y.o.w.m with a H/O HTN, CRI came to the ED because of Malaise and C/P 6/10. Pt was having breakfast and was shoveling snow shortly in the cold after. when he noticed CP at his left ant chest, which was getting worse when he was moving his left arm. Pt took 81 mg of ASA [employer]. Pt received a 243 mg of ASA here in te ed and the C/P subsided 100%. His HR was in A-fib 141. No N/V/D, no Dizziness no other acute medical issues. BP 136/96 RR 22 Pulse ox 99% on RA Temp 36.8 Pulse 122 irr/irr Onset Date: 06/20/18 Onset Time: 08:00 Duration: Hour(s):, Intermittent Location: Reports: Chest Quality: Reports: Ache, Burning, Dull Severity: Moderate Improves with: Reports: Rest Worsens with: Reports: Movement Context: Reports: Activity (showeling snow), Lifting Associated Symptoms: Reports: Chest Pain, Malaise, Weakness Treatments [employer]IATE: Reports: Aspirin (81 mg) Left Upper Chest Pain Score (Numeric/FACES): 6 - Related Data Allergies Allergy/AdvReac Type Severity Reaction Status Date / Time indomethacin [From Indocin] AdvReac Mild Nausea Verified 06/20/18 18:51 Home Meds: Home Meds Allopurinol [Zyloprim] 100 mg PO DAILY 12/07/16 [History] Glimepiride 2 mg PO DAILY 12/07/16 [History] Simvastatin [Zocor] 40 mg PO BEDTIME 12/07/16 [History] Pantoprazole Sodium [Protonix] 40 mg PO DAILY 03/09/17 [History] Acetaminophen [Tylenol Extra Strength] 1,000 mg PO Q6HR PRN 03/21/17 [History] Carboxymethylcellulos/Glycerin [Refresh Optive] 1 drop EYEBOTH ASDIRECTED PRN [History] Cholecalciferol (Vitamin D3) [Vitamin D3] 1,000 unit PO DAILY 03/21/17 [History] Fluticasone Propionate [Flonase] 1 spray NS DAILY PRN 03/21/17 [History] Multivitamin with Minerals [Multiple Vitamin] 1 tab PO DAILY 03/21/17 [History] Aspirin [Ecotrin] 81 mg PO DAILY 07/26/17 [History] Famotidine 20 mg PO DAILY 07/26/17 [History] Finasteride 5 mg PO DAILY 07/26/17 [History] Lisinopril [Prinivil] 20 mg PO BID 07/26/17 [History] Metoprolol Tartrate 12.5 mg PO BID 07/26/17 [History] Tamsulosin [Flomax] 0.8 mg PO BEDTIME 07/26/17 [History] amLODIPine Besylate [Amlodipine Besylate] 10 mg PO DAILY 07/26/17 [History] Alum Hydroxide/Mag Hydroxide [Mag-Al] 30 ml PO Q6H PRN cup 07/27/17 [Rx] Sucralfate [Carafate] 1 gm PO QID #120 tablet 07/27/17 [Rx] Past Medical History HEENT History: Reports: Cataract, Epistaxis, Hard of Hearing, Impaired Vision Cardiovascular History: Reports: Afib, Angina, Hypertension, Other (See Below) Other Cardiovascular History: currently in NSR with frequent PACs Respiratory History: Reports: SOB Gastrointestinal History: Reports: Gastritis, GERD, Other (See Below) Other Gastrointestinal History: recently dx with esophagitis and gastritis and on medication for Genitourinary History: Reports: Prostate Disorder, Other (See Below) Other Genitourinary History: 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 Dermatologic History: Reports: Other (See Below) Other Dermatologic History: skin CA - Infectious Disease History Infectious Disease History: Reports: Chicken Pox, Measles, Mumps Other Infectious Disease History: mumps at 33 - Past Surgical History HEENT Surgical History: Reports: Cataract Surgery Other HEENT Surgeries/Procedures: bilat cataract surg. Cardiovascular Surgical History: Reports: None Respiratory Surgical History: Reports: None GI Surgical History: Reports: Colonoscopy, Hernia, Abdominal Male Surgical History: Reports: None Endocrine Surgical History: Reports: None Neurological Surgical History: Reports: None Musculoskeletal Surgical History: Reports: None Oncologic Surgical History: Reports: Other (See Below) Other Oncologic Surgeries/Procedures: radiated seeds implanted into prostate Dermatological Surgical History: Reports: None Social & Family History - Family History Family Medical History: Noncontributory - Caffeine Use Caffeine Use: Reports: None Other Caffeine Use: decaf ED ROS GENERAL - Review of Systems Review Of Systems: See Below Constitutional: Reports: Weakness HEENT: Reports: No Symptoms Respiratory: Reports: No Symptoms Cardiovascular: Reports: Chest Pain (610 subsided after ASA was given) Endocrine: Reports: No Symptoms GI/Abdominal: Reports: No Symptoms : Reports: No Symptoms Musculoskeletal: Reports: No Symptoms Skin: Reports: No Symptoms Neurological: Reports: No Symptoms Psychiatric: Reports: No Symptoms Hematologic/Lymphatic: Reports: No Symptoms Immunologic: Reports: No Symptoms ED EXAM, GENERAL - Physical Exam Exam: See Below Exam Limited By: No Limitations General Appearance: Alert, WD/WN, Moderate Distress Eye Exam: Bilateral Eye: Normal Inspection Ears: Normal External Exam Ear Exam: Bilateral Ear: Auricle Normal Nose: Normal Inspection, Normal Mucosa Throat/Mouth: Normal Lips, Normal Voice, No Airway Compromise, Other (dry mucosal membranes) Head: Atraumatic, Normocephalic Neck: Normal Inspection, Supple, Non-Tender, Full Range of Motion Respiratory/Chest: No Respiratory Distress, Lungs Clear, Normal Breath Sounds, Other (tender left ant chest wall) Cardiovascular: No Edema (chronic 1+ pitting wes leg edema), Irregularly Irregular Peripheral Pulses: 1+: Brachial (L) GI/Abdominal: Normal Bowel Sounds, Soft, Non-Tender, No Organomegaly, Pelvis Stable (Male) Exam: Deferred Rectal (Males) Exam: Deferred Back Exam: Normal Inspection, Full Range of Motion Extremities: Normal Inspection, Normal Range of Motion, Non-Tender, Pedal Edema (1+ chronic) Neurological: Alert, Oriented, CN II-XII Intact, Normal Cognition, Normal Gait Psychiatric: Normal Affect, Normal Mood Skin Exam: Warm, Dry, Intact, Normal Color, No Rash Lymphatic: No Adenopathy EKG INTERPRETATION EKG Date: 06/20/18 Time: 17:10 Rhythm: A-Fib Rate (Beats/Min): 141 Zahl: LAD-Left Zahl Deviation P-Wave: Absent QRS: Normal ST-T: Normal QT: Prolonged (501) Comparison: NA - No Prior EKG Course - Vital Signs Text/Narrative:: 82 y.o.w.m with a H/O HTN, CRI came to the ED because of Malaise and C/P 6/10. Pt was having breakfast and was shoveling snow shortly in the cold after. when he noticed CP at his left ant chest, which was getting worse when he was moving his left arm. Pt took 81 mg of ASA [employer]IATE. Pt received a 243 mg of ASA here in te ed and the C/P subsided 100%. His HR was in A-fib 141. No N/V/D, no Dizziness no other acute medical issues. BP 136/96 RR 22 Pulse ox 99% on RA Temp 36.8 Pulse 122 irr/irr PE: WNWD W M with A fib with RVR Pain free since 4 pm on arrival Imaging: CXR: NAD Labs: 4 pm: Troponin 0.117 WBC 5.4 HGB 11.1 HCT 33.1 GFR 25 BUN 39 Cr. 2.5 Glc 243 9 pm: Repeat Troponin 0.117 BRANDEN: A fib with RVR HR 141 2nd EKG after Cardiazem A fib with HR 113 Impression: 1) A fib with RVR 2) Elevated troponin. Tx: ASA, Cardiazem 20 mg then 25 mg. Metoprolol 5 mg, Lovenox 80 mg SQ.2 liters O2 on NC 9.43 pm Consultation: Dr. Hodges, Hospitalist, [place]: accepted the pt for transfer and further care Reexam: Pt was stable, no ICU available at [facility], pt requested to be transferred to [place], no to [facility] at this time. Plan: Transfer to [facility] ICU Last Recorded V/S: Last Vital Signs Temp 37.1 C 06/20/18 16:55 Pulse 110 H 06/20/18 23:28 Resp 22 H 06/20/18 16:55 BP 137/91 H 06/20/18 23:28 Pulse Ox 96 06/20/18 23:28 - Orders/Labs/Meds Labs: Laboratory Tests 06/20/18 06/20/18 06/20/18 Range/Units 17:20 17:20 17:20 WBC 5.4 (4.5-12.0) X10-3/uL RBC 3.20 L (4.30-5.75) x10(6)uL Hgb 11.0 L (11.5-15.5) g/dL Hct 33.1 (30.0-51.3) % MCV 103.4 H (80-96) fL MCH 34.3 H (27.7-33.6) pg MCHC 33.2 (32.2-35.4) g/dL RDW 13.5 (11.5-15.5) % Plt Count 174 (125-369) X10(3)uL MPV 8.3 (7.4-10.4) fL Neut % (Auto) 63.1 (46-82) % Lymph % (Auto) 23.4 (13-37) % [place] % (Auto) 10.8 (4-12) % Eos % (Auto) 2 (1.0-5.0) % Baso % (Auto) 0 (0-2) % Neut # (Auto) 3.4 (1.6-8.3) # Lymph # (Auto) 1.3 (0.6-5.0) # [place] # (Auto) 0.6 (0.0-1.3) # Eos # (Auto) 0.1 (0.0-0.8) # Baso # (Auto) 0.0 (0.0-0.2) # PT (8.7-11.1) INR (0.89-1.13) Sodium 135 (135-145) mmol/L Potassium 4.5 (3.5-5.3) mmol/L Chloride 103 (100-110) mmol/L Carbon Dioxide 22 (21-32) mmol/L BUN 39 H D (7-18) mg/dL Creatinine 2.5 H* (0.70-1.30) mg/dL Est Cr Clr Drug Dosing TNP Estimated GFR (MDRD) 25 L (>60) BUN/Creatinine Ratio 15.6 (9-20) Glucose 214 H D (80-116) mg/dL Calcium 8.9 (8.6-10.2) mg/dL Magnesium 2.3 (1.8-2.5) mg/dL Troponin I 0.117 H* (<0.017-0.056) ng/mL TSH, Ultra Sensitive (0.36-3.74) IU/mL 06/20/18 06/20/18 06/20/18 Range/Units 17:20 17:20 21:00 WBC (4.5-12.0) X10-3/uL RBC (4.30-5.75) x10(6)uL Hgb (11.5-15.5) g/dL Hct (30.0-51.3) % MCV (80-96) fL MCH (27.7-33.6) pg MCHC (32.2-35.4) g/dL RDW (11.5-15.5) % Plt Count (125-369) X10(3)uL MPV (7.4-10.4) fL Neut % (Auto) (46-82) % Lymph % (Auto) (13-37) % [place] % (Auto) (4-12) % Eos % (Auto) (1.0-5.0) % Baso % (Auto) (0-2) % Neut # (Auto) (1.6-8.3) # Lymph # (Auto) (0.6-5.0) # [place] # (Auto) (0.0-1.3) # Eos # (Auto) (0.0-0.8) # Baso # (Auto) (0.0-0.2) # PT 10.2 (8.7-11.1) INR 1.05 (0.89-1.13) Sodium (135-145) mmol/L Potassium (3.5-5.3) mmol/L Chloride (100-110) mmol/L Carbon Dioxide (21-32) mmol/L BUN (7-18) mg/dL Creatinine (0.70-1.30) mg/dL Est Cr Clr Drug Dosing Estimated GFR (MDRD) (>60) BUN/Creatinine Ratio (9-20) Glucose (80-116) mg/dL Calcium (8.6-10.2) mg/dL Magnesium (1.8-2.5) mg/dL Troponin I 0.117 H* (<0.017-0.056) ng/mL TSH, Ultra Sensitive 1.69 (0.36-3.74) IU/mL Meds: Medications Discontinued Medications Generic Name Dose Route Start Last Admin Trade Name Freq PRN Reason Stop Dose Admin Aspirin 243 mg 06/20/18 18:02 06/20/18 17:03 Aspirin PO 06/20/18 18:03 243 mg ONETIME STA Administration Diltiazem HCl 20 mg 06/20/18 17:14 06/20/18 17:20 Diltiazem IVPUSH 06/20/18 17:15 20 mg ONETIME ONE Administration Diltiazem HCl 25 mg 06/20/18 17:54 06/20/18 18:02 Diltiazem IVPUSH 06/20/18 17:55 25 mg ONETIME ONE Administration Diltiazem HCl 120 mg 06/20/18 20:12 06/20/18 22:20 Cardizem Cd PO 06/20/18 20:13 Not Given ONETIME ONE Enoxaparin Sodium 80 mg 06/20/18 19:15 06/20/18 22:38 Lovenox SUBCUT Not Given Q12H SUDHIR Enoxaparin Sodium 80 mg 06/20/18 22:22 06/20/18 22:37 Lovenox SUBCUT 06/20/18 22:23 80 mg ONETIME ONE Administration Sodium Chloride 500 mls @ 999 mls/hr 06/20/18 17:37 Normal Saline IV 06/20/18 18:07 .BOLUS STA Sodium Chloride 1,000 mls @ 999 mls/hr 06/20/18 18:10 06/20/18 17:10 Normal Saline IV 06/20/18 19:10 999 mls/hr .BOLUS ONE Administration Sodium Chloride 1,000 mls @ 125 mls/hr 06/20/18 22:30 06/20/18 22:37 Normal Saline IV 125 mls/hr ASDIRECTED SUDHIR Administration Metoprolol Tartrate 5 mg 06/20/18 20:08 06/20/18 20:19 Lopressor IVPUSH 06/20/18 20:09 5 mg ONETIME ONE Administration Departure - Departure Time of Disposition: 19:00 Disposition: DC/Tfer to [facility] Reason for Transfer *Q: Other (No ICU nurses) Condition: Fair Clinical Impression: A-fib Referrals: Luli Lester PA [Primary Care Provider] - Forms: ED Department Discharge
[2018-06-20] MEDS ORDERED: Diltiazem 25 MG/5 ML SDV IVPUSH ONE ×2 (17:14→17:54)
[2018-06-20] MEDS ORDERED: Sodium Chloride 0.9% 500 ML IV STA (17:37)
[2018-06-20] MEDS ORDERED: Aspirin 81 MG Tab.Chew PO STA (18:02)
[2018-06-20] MEDS ORDERED: Sodium Chloride 0.9% 1,000 ML IV ONE (18:10)
[2018-06-20] MEDS ORDERED: Enoxaparin 30 MG/0.3 ML Syringe SUBCUT SCH (19:15)
[2018-06-20] MEDS ORDERED: Metoprolol Tartrate 5 MG/5 ML SDV IVPUSH ONE (20:08)
[2018-06-20] MEDS: Diltiazem 120 MG Cap.CD PO ONE ×2 (20:35→22:20)
[2018-06-20] MEDS ORDERED: Enoxaparin 80 MG/0.8 ML Syringe SUBCUT ONE (22:22)
[2018-06-20] MEDS ORDERED: Sodium Chloride 0.9% 1,000 ML IV SCH (22:30)
[2018-06-20 23:29] VITALS: BP 137/91
== END 2018-06-20 22:45 | disposition critical access hospital (66) ==
LOC: FB.ED 16:55
DX: I48.91 Unspecified atrial fibrillation (principal); E11.9 Type 2 diabetes mellitus without complications; Z88.8 Allergy status to other drugs, medicaments and biological substances; Z79.899 Other long term (current) drug therapy
CPT/HCPCS: 36415; 71045; 80048; 83735; 84443; 84484; 85025; 85610; 93005; 96361; 96374; 99285; A9270-GY; J1650; J3490; J7030

== ENCOUNTER 2019-01-11 22:18 | Emergency (ER) | payer MEDICARE ==
--- NOTE | 2019-01-11 22:24 | EDM.PDOC ---
ED HPI GENERAL MEDICAL PROBLEM - General Chief Complaint: Abdominal Pain Stated Complaint: ABD PAIN Time Seen by Provider: 01/11/19 22:23 Source of Information: Reports: Patient History Limitations: Reports: No Limitations - History of Present Illness INITIAL COMMENTS - FREE TEXT/NARRATIVE: 83-year-old male with intermittent abdominal pain for the past 2-3 weeks. He reports it is in his lower abdomen and it has been worsening since yesterday with increased pain and longer episodes of having the pain. He does feel that the pain has gotten better at least on 2 occasions after he has eaten. He has had no nausea or vomiting. He has had bowel movements but over the past 2-3 weeks he has also noticed mucus after having stool on occasions. No blood in his stool. No fevers or chills. He does report intermittent aching pains in his chest that lasts for less than 5 minutes that seemed to go with his abdominal pain the abdominal pain last for hours at times and then seems to go away on its own. No dysuria or hematuria. The pain in his abdomen is currently a 5/10. It is worse with palpation. It does seem to be going away. The pain does not radiate. He does have some lower back pain but this is chronic and unchanged from previous. No shortness of breath. No cough. There are no other associated signs or symptoms. There are no other modifying factors. 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) Mid abdomen Pain Score (Numeric/FACES): 5 - Related Data Allergies Allergy/AdvReac Type Severity Reaction Status Date / Time indomethacin [From Indocin] AdvReac Mild Nausea Verified 01/11/19 22:31 Home Meds: Home Meds Allopurinol [Zyloprim] 100 mg PO DAILY 12/07/16 [History] Glimepiride 2 mg PO DAILY 12/07/16 [History] Simvastatin [Zocor] 40 mg PO BEDTIME 12/07/16 [History] Pantoprazole Sodium [Protonix] 40 mg PO DAILY 03/09/17 [History] Acetaminophen [Tylenol Extra Strength] 1,000 mg PO Q6HR PRN 03/21/17 [History] Carboxymethylcellulos/Glycerin [Refresh Optive] 1 drop EYEBOTH ASDIRECTED PRN [History] Cholecalciferol (Vitamin D3) [Vitamin D3] 1,000 unit PO DAILY 03/21/17 [History] Fluticasone Propionate [Flonase] 1 spray NS DAILY PRN 03/21/17 [History] Multivitamin with Minerals [Multiple Vitamin] 1 tab PO DAILY 03/21/17 [History] Aspirin [Ecotrin EC] 81 mg PO DAILY 07/26/17 [History] Famotidine 20 mg PO DAILY 07/26/17 [History] Finasteride 5 mg PO DAILY 07/26/17 [History] Lisinopril [Prinivil] 20 mg PO BID 07/26/17 [History] Metoprolol Tartrate 12.5 mg PO BID 07/26/17 [History] Tamsulosin [Flomax] 0.8 mg PO BEDTIME 07/26/17 [History] amLODIPine Besylate [Amlodipine Besylate] 10 mg PO DAILY 07/26/17 [History] Alum Hydroxide/Mag Hydroxide [Mag-Al] 30 ml PO Q6H PRN cup 07/27/17 [Rx] Sucralfate [Carafate] 1 gm PO QID #120 tablet 07/27/17 [Rx] Past Medical History HEENT History: Reports: Cataract, Epistaxis, Hard of Hearing, Impaired Vision Cardiovascular History: Reports: Afib, Angina, Hypertension Gastrointestinal History: Reports: Gastritis, GERD Genitourinary History: Reports: Prostate Disorder, Other (See Below) Other Genitourinary History: 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 Dermatologic History: Reports: Other (See Below) Other Dermatologic History: skin CA - Infectious Disease History Infectious Disease History: Reports: Chicken Pox, Measles, Mumps Other Infectious Disease History: mumps at 33 - Past Surgical History HEENT Surgical History: Reports: Cataract Surgery Other HEENT Surgeries/Procedures: bilat cataract surg. Cardiovascular Surgical History: Reports: Other (See Below) (Cardiac catheterization that showed no significant coronary artery disease) GI Surgical History: Reports: Colonoscopy, Hernia, Inguinal (Left) Male Surgical History: Reports: Other (See Below) (Radioactive seeds placed in prostate) Oncologic Surgical History: Reports: Other (See Below) Other Oncologic Surgeries/Procedures: radiated seeds implanted into prostate Social & Family History - Tobacco Use Smoking Status *Q: Unknown Ever Smoked (Nonsmoker) - Caffeine Use Caffeine Use: Reports: None Other Caffeine Use: decaf - Alcohol Use Alcohol Use History: No - Living Situation & Occupation Living situation: Reports: (He is here with his ) Occupation: Retired ED ROS GENERAL - Review of Systems Review Of Systems: See Below Constitutional: Reports: No Symptoms HEENT: Reports: No Symptoms Respiratory: Reports: No Symptoms Cardiovascular: Reports: Chest Pain (As described above. No chest pain now. No chest pain today.). Denies: Palpitations Endocrine: Reports: No Symptoms GI/Abdominal: Reports: Abdominal Pain, Mucous in Stool : Reports: No Symptoms Musculoskeletal: Reports: Back Pain (Chronic) Skin: Reports: No Symptoms Neurological: Reports: No Symptoms Hematologic/Lymphatic: Reports: Easy Bleeding, Easy Bruising, Other (Patient is on Eliquis) Immunologic: Reports: No Symptoms ED EXAM, GI/ABD - Physical Exam Exam: See Below Exam Limited By: Other General Appearance: Alert, WD/WN Eyes: Bilateral: Normal Appearance, EOMI Ears: Normal External Exam, Hearing Grossly Normal Nose: Normal Inspection, Normal Mucosa, No Blood Throat/Mouth: Normal Inspection, Normal Oropharynx, Normal Voice, No Airway Compromise Head: Atraumatic, Normocephalic Neck: Normal Inspection, Supple, Non-Tender, Full Range of Motion Respiratory/Chest: No Respiratory Distress, Lungs Clear, Normal Breath Sounds, No Accessory Muscle Use, Chest Non-Tender Cardiovascular: Normal Peripheral Pulses, No Murmur, Irregularly Irregular GI/Abdominal Exam: Normal Bowel Sounds, Soft, No Mass, Tender (Diffusely in the lower abdomen) Back Exam: Normal Inspection Extremities: Normal Inspection, Normal Range of Motion, Non-Tender, No Pedal Edema, Normal Capillary Refill Neurological: Alert, Oriented, CN II-XII Intact, Normal Cognition, No Motor/ Sensory Deficits Psychiatric: Normal Affect Skin Exam: Warm, Dry, Intact, Normal Color, No Rash EKG INTERPRETATION EKG Date: 01/11/19 Time: 22:55 Rhythm: NSR (Sinus bradycardia) Rate (Beats/Min): 48 [place]: LAD-Left [place] Deviation P-Wave: Present QRS: Other (Poor R-wave progression) ST-T: Normal QT: Normal Comparison: Other: (Compared to EKG performed on 2018 A. fib has resolved. Compared to EKG performed on 07/27/2017, there are no significant changes from the EKG on 07/27/2017. There are no currents of injury or ischemia present) Course - Vital Signs Last Recorded V/S: Last Vital Signs Temp 36.6 C 01/11/19 23:40 Pulse 74 01/11/19 23:40 Resp 18 01/11/19 23:40 BP 146/87 H 01/11/19 23:40 Pulse Ox 95 01/11/19 23:40 - Orders/Labs/Meds Orders: Active Orders 24 hr Category Date Time Status Abdomen Pelvis wo Cont [CT] Stat Exams 01/11/19 22:44 Taken EKG 12 Lead [EK] Routine Ther 01/11/19 22:44 Ordered Labs: Laboratory Tests 01/11/19 01/11/19 01/11/19 Range/Units 22:50 22:56 22:56 WBC 6.7 (4.5-12.0) X10-3/uL RBC 3.30 L (4.30-5.75) x10(6)uL Hgb 11.5 L (13.5-17.8) g/dL Hct 33.8 (30.0-51.3) % MCV 102.5 H (80-96) fL MCH 35.0 H (27.7-33.6) pg MCHC 34.1 (32.2-35.4) g/dL RDW 13.8 (11.5-15.5) % Plt Count 183 (125-369) X10(3)uL MPV 8.4 (7.4-10.4) fL Add Manual Diff Yes Neutrophils % (Manual) 75 (46-82) % Band Neutrophils % 2 (0-6) % Lymphocytes % (Manual) 14 (13-37) % Monocytes % (Manual) 6 (4-12) % Eosinophils % (Manual) 3 (0-5) % Sodium 136 (135-145) mmol/L Potassium 4.0 (3.5-5.3) mmol/L Chloride 102 (100-110) mmol/L Carbon Dioxide 25 (21-32) mmol/L BUN 26 H D (7-18) mg/dL Creatinine 2.0 H* (0.70-1.30) mg/dL Est Cr Clr Drug Dosing 27.00 mL/min Estimated GFR (MDRD) 32 L (>60) BUN/Creatinine Ratio 13.0 (9-20) Glucose 162 H (80-116) mg/dL Calcium 9.3 (8.6-10.2) mg/dL Total Bilirubin 0.6 (0.1-1.3) mg/dL AST 13 D (5-25) IU/L ALT 19 D (12-36) U/L Alkaline Phosphatase 75 (56-112) IU/L Troponin I (<0.017-0.056) ng/mL C-Reactive Protein (0.5-0.9) mg/dL Total Protein 6.8 (6.0-8.0) g/dL Albumin 3.3 (3.2-4.6) g/dL Globulin 3.5 g/dL Albumin/Globulin Ratio 0.9 Amylase 176 H (25-115) U/L Urine Color Yellow (YELLOW) Urine Appearance Clear (CLEAR) Urine pH 6.0 (5.0-6.5) Ur Specific [place] 1.015 (1.010-1.025) Urine Protein Negative (NEGATIVE) mg/dL Urine Glucose (UA) Normal (NORMAL) mg/dL Urine Ketones Negative (NEGATIVE) mg/dL Urine Occult Blood Negative (NEGATIVE) Urine Nitrite Negative (NEGATIVE) Urine Bilirubin Negative (NEGATIVE) Urine Urobilinogen Normal (NEGATIVE) mg/dL Ur Leukocyte Esterase Negative (NEGATIVE) Urine RBC 0-5 (0-5) Urine WBC 0-5 (0-5) Ur Squamous Epith Cells Rare (NS,R,O) Urine Bacteria Few H (NS) 01/11/19 Range/Units 22:56 WBC (4.5-12.0) X10-3/uL RBC (4.30-5.75) x10(6)uL Hgb (13.5-17.8) g/dL Hct (30.0-51.3) % MCV (80-96) fL MCH (27.7-33.6) pg MCHC (32.2-35.4) g/dL RDW (11.5-15.5) % Plt Count (125-369) X10(3)uL MPV (7.4-10.4) fL Add Manual Diff Neutrophils % (Manual) (46-82) % Band Neutrophils % (0-6) % Lymphocytes % (Manual) (13-37) % Monocytes % (Manual) (4-12) % Eosinophils % (Manual) (0-5) % Sodium (135-145) mmol/L Potassium (3.5-5.3) mmol/L Chloride (100-110) mmol/L Carbon Dioxide (21-32) mmol/L BUN (7-18) mg/dL Creatinine (0.70-1.30) mg/dL Est Cr Clr Drug Dosing mL/min Estimated GFR (MDRD) (>60) BUN/Creatinine Ratio (9-20) Glucose (80-116) mg/dL Calcium (8.6-10.2) mg/dL Total Bilirubin (0.1-1.3) mg/dL AST (5-25) IU/L ALT (12-36) U/L Alkaline Phosphatase (56-112) IU/L Troponin I < 0.017 L (<0.017-0.056) ng/mL C-Reactive Protein 0.2 L (0.5-0.9) mg/dL Total Protein (6.0-8.0) g/dL Albumin (3.2-4.6) g/dL Globulin g/dL Albumin/Globulin Ratio Amylase (25-115) U/L Urine Color (YELLOW) Urine Appearance (CLEAR) Urine pH (5.0-6.5) Ur Specific [place] (1.010-1.025) Urine Protein (NEGATIVE) mg/dL Urine Glucose (UA) (NORMAL) mg/dL Urine Ketones (NEGATIVE) mg/dL Urine Occult Blood (NEGATIVE) Urine Nitrite (NEGATIVE) Urine Bilirubin (NEGATIVE) Urine Urobilinogen (NEGATIVE) mg/dL Ur Leukocyte Esterase (NEGATIVE) Urine RBC (0-5) Urine WBC (0-5) Ur Squamous Epith Cells (NS,R,O) Urine Bacteria (NS) - Radiology Interpretation Free Text/Narrative:: CT scan of abdomen and pelvis showed no change from prior exam on 10/25/2017 and specifically no acute or specific finding to explain the patient's abdominal pain per the radiologist. - Re-Assessments/Exams Free Text/Narrative Re-Assessment/Exam: 01/12/19 00:01: Patient has remained vitally stable. His pain is much improved and appears to be going away. His blood tests are either normal or unchanged from previous. The CT scan of his abdomen and pelvis was negative. I'm unsure why he is having the abdominal pain but does not appear to represent anything significant or in need of any acute intervention at this time. He is to follow- up with his primary provider as he may need GI referral and additional outpatient workup. Departure - Departure Time of Disposition: 00:05 Disposition: Home, Self-Care 01 Condition: Good Clinical Impression: Abdominal pain of unknown etiology - Discharge Information Instructions: Abdominal Pain, Adult, [id number] Referrals: Luli Lester PA [Primary Care Provider] - Forms: ED Department Discharge Additional Instructions: Your blood tests were either unchanged or normal. Your urine test was normal. Your EKG was unchanged from 2018. The CT scan of your abdomen and pelvis showed no acute problem. I am unsure why you are having the abdominal pain. It does not appear to represent anything serious at this time. You need to follow-up with your primary provider this week. Drink plenty of fluids. Continue to take the Metamucil and increase the fiber in your diet. Back to the emergency department for high fever, unrelenting vomiting, persisting/worsening chest pain , shortness of breath or any other concerning sign or symptom. - My Orders Last 24 Hours: My Active Orders 01/11/19 22:44 Abdomen Pelvis wo Cont [CT] Stat EKG 12 Lead [EK] Routine - Assessment/Plan Last 24 Hours: My Active Orders 01/11/19 22:44 Abdomen Pelvis wo Cont [CT] Stat EKG 12 Lead [EK] Routine
[2019-01-12 00:20] VITALS: BP 139/70
== END 2019-01-12 00:15 | disposition home or self-care (01) ==
LOC: FB.ED 22:18
DX: R10.9 Unspecified abdominal pain (principal); I48.91 Unspecified atrial fibrillation; I10 Essential (primary) hypertension; K21.9 Gastro-esophageal reflux disease without esophagitis; E11.9 Type 2 diabetes mellitus without complications; Z88.6 Allergy status to analgesic agent; Z79.84 Long term (current) use of oral hypoglycemic drugs; Z79.82 Long term (current) use of aspirin; Z79.899 Other long term (current) drug therapy; Z85.46 Personal history of malignant neoplasm of prostate; Z85.828 Personal history of other malignant neoplasm of skin; Z98.41 Cataract extraction status, right eye; Z98.42 Cataract extraction status, left eye
CPT/HCPCS: 36415; 74176; 80053; 81001; 82150; 84484; 85025; 86140; 93005; 99284-25

== ENCOUNTER 2022-01-20 11:03 | Emergency (ER) | payer MEDICARE ==
[2022-01-20] MEDS ORDERED: Aspirin 81 MG Tab.Chew PO ONE (11:30)
[2022-01-20 12:00] VITALS: BP 157/83; PULSE 40
[2022-01-20 12:18] LABS: ESTIMATED GFR 27 mL/min (>60)
== END 2022-01-20 13:13 ==
LOC: FB.ED 11:03
DX: I48.91 Unspecified atrial fibrillation (principal); I49.5 Sick sinus syndrome; I10 Essential (primary) hypertension; E11.9 Type 2 diabetes mellitus without complications; Z88.8 Allergy status to other drugs, medicaments and biological substances; Z79.899 Other long term (current) drug therapy; Z79.82 Long term (current) use of aspirin
CPT/HCPCS: 36415; 71045; 80053; 84484; 85025; 93005; 99285; A9270